=== PATIENT | male | born 1940 | race Caucasian/White ===

== ENCOUNTER 2019-12-02 17:49 | Outpatient (CLI) | payer MEDICARE, SELFPAY ==
--- NOTE | ~2019-12-02 | XR_ITS ---
EXAMINATION: XR chest 2V EXAM DATE: 12/02/2019 18:19 INDICATION: Cough. Hypertension. TECHNIQUE: Frontal and lateral projections of the chest obtained and reviewed. Comparison is made to prior examination from 05/04/2018. FINDINGS: Patient is rotated to the right. The lungs are clear. There are no pleural effusions. The cardiomediastinal silhouette is within normal limits. There is no pneumothorax suspected. The bone s and soft tissues are unremarkable. IMPRESSION: No acute cardiopulmonary findings. Reviewed, dictated and finalized at location A.
[2019-12-02 18:04] LABS: Basophils Absolute Auto 0.05 K/mm3 (0.00-0.10); Basophils Percent Auto 0.7 % (0.0-1.0); Eosinophils Absolute Auto 0.43 K/mm3 (0.02-0.50); Eosinophils Percent Auto 5.9 % (1.0-6.0); Hematocrit 42.6 % (37.0-46.0); Hemoglobin 14.8 g/dL (12.4-15.3); Immature Granulocyte Absolute 0.03 K/mm3 (0.00-0.00); Immature Granulocyte Percent A 0.4 % (0.0-0.0); Lymphocytes Absolute Auto 2.42 K/mm3 (1.10-4.50); Lymphocytes Percent Auto 33.4 % (18.0-42.0); Mean Corpuscular HGB Conc 34.7 g/dL (32.0-36.0); Mean Corpuscular Hemoglobin 31.8 pg (27.0-31.0); Mean Corpuscular Volume 91.6 fL (78.0-102.0); Mean Platelet Volume 9.4 fl (8.7-11.0); Monocytes Absolute Auto 0.87 K/mm3 (0.10-0.90); Neutrophils Absolute Auto 3.4 K/mm3 (1.7-7.2); Neutrophils Percent Auto 47.6 % (50.0-70.0); Platelet Count Result 198 K/mm3 (150-420); Red Blood Count 4.65 M/mm3 (4.70-6.10); Red Cell Distribution Width 12.6 % (11.6-14.4); White Blood Count 7.2 K/mm3 (4.8-10.8)
[2019-12-02 18:28] LABS: BNP 32 pg/mL (0-100)
[2019-12-02 19:00] LABS: Alanine Aminotransferase 24 U/L (16-63); Albumin Level 3.6 g/dL (3.4-5.0); Alkaline Phosphatase 78 U/L (46-116); Anion Gap 16.1 mmol/L (7-16); Aspartate Amino Transferase 19 U/L (15-37); Bilirubin,Total 0.6 mg/dL (0.00-1.00); Blood Urea Nitrogen 21 mg/dL (7-18); Calcium 8.7 mg/dL (8.5-10.1); Carbon Dioxide 24 mmol/L (21-32); Chloride 101 mmol/L (98-108); Estimated Glomerular Filt Rate 46; Free T3 2.55 pg/mL (2.18-3.98); Free T4 Free Thyroxine 1.21 ng/dL (0.76-1.46); Glucose 121 mg/dL (70-99); Osmolality Calculated 288 mOsm/kg (285-295); Potassium 4.1 mmol/L (3.5-5.1); Sodium 137 mmol/L (136-145); Thyroid Stimulating Hormone 2.32 uIU/mL (0.36-3.74); Total Protein 7.1 g/dL (6.4-8.2)
[2019-12-03 10:33] LABS: Add Urine Microscopic? NO; Appearance Urine Clear (Clear); Bilirubin Urine Negative (Negative); Blood Urine Negative (Negative); Color Urine Yellow (Yellow); Glucose Urine UA Negative (Negative); Ketones Urine Negative (Negative); Leukocyte Esterase Ur Negative (Negative); Nitrate Urine Negative (Negative); Protein Urine Negative (Negative); Specific Grav Ur 1.015 (1.010-1.020); pH Urine 6.5 (5.0-8.0)
== END 2019-12-02 17:50 | disposition home or self-care (01) ==
PROVIDERS: PCP Internal Medicine; Visit Provider Internal Medicine
DX: R60.1 Generalized edema (principal); I10 Essential (primary) hypertension; R06.02 Shortness of breath
CPT/HCPCS: 36415; 71046; 80053; 81003; 83880; 84439; 84443; 84481; 85025

== ENCOUNTER 2019-12-03 10:15 | Outpatient (CLI) | payer MEDICARE, SELFPAY ==
--- NOTE | ~2019-12-03 | US_ITS ---
EXAMINATION: US venous doppler [facility] DATE: 12/03/2019 13:10 INDICATION: Anasarca, hypertension TECHNIQUE: Duong scale images without and with compression and Doppler images of the bilateral lower e xtremity veins were obtained. COMPARISON: None FINDINGS: The right common femoral vein, profunda femoral vein, femoral vein, popliteal vein, peroneal trunk, p osterior tibial veins, and greater saphenous vein are patent. The left common femoral vein, profunda femoral vein, femoral vein, popliteal vein, peroneal trunk, po sterior tibial veins, and greater saphenous vein are patent. IMPRESSION: 1. Patent bilateral lower extremity veins. No evidence of deep venous thrombosis. Reviewed, dictated and finalized at location A. IMPRESSION: 1. Patent bilateral lower extremity veins. No evidence of deep venous thrombosi s.
--- NOTE | ~2019-12-03 | US_ITS ---
US abdomen complete EXAMINATION: US Abdomen Complete INDICATION: Anasarca. PROCEDURE: Realtime High Resolution abdomen ultrasound. COMPARISON: No prior studies for comparison FINDINGS: There are gallstones. There is mild gallbladder wall thickening. Common bile duct measures 3.5 mm. Liver echotexture is increased, consistent with fatty infiltration.. Pancreas within normal limits. Pancreatic tail is obscured by bowel gas. Spleen is unremarkeable. Renal echotexture is within norm al limits bilaterally without hydronephrosis, contour deforming mass or renal stone. Right kidney lyndsay sures 10.8 cm. Left kidney measures 9.8 cm. Visualized aspects of the aorta and IVC are within normal limits. Portal vein is patent. No sonograph ic Hannah's sign indicated by the technologist. IMPRESSION: 1: Cholelithiasis with mild gallbladder wall thickening. Consider cholecystitis in the appropriate cl inical setting. 2: Hepatic steatosis. Reviewed, dictated and finalized at location A. IMPRESSION: 1: Cholelithiasis with mild gallbladder wall thickening. Consider cholecystitis in the appropriate clinical setting. 2: Hepatic steatosis.
== END 2019-12-03 10:16 | disposition home or self-care (01) ==
PROVIDERS: PCP Internal Medicine; Visit Provider Internal Medicine
DX: R60.1 Generalized edema (principal); I10 Essential (primary) hypertension
CPT/HCPCS: 76700; 93970

== ENCOUNTER 2020-01-18 10:34 | Outpatient (CLI) | payer MEDICARE, SELFPAY ==
[2020-01-18 10:48] LABS: Basophils Absolute Auto 0.04 K/mm3 (0.00-0.10); Basophils Percent Auto 0.5 % (0.0-1.0); Eosinophils Absolute Auto 0.48 K/mm3 (0.02-0.50); Eosinophils Percent Auto 6.5 % (1.0-6.0); Immature Granulocyte Absolute 0.02 K/mm3 (0.00-0.00); Immature Granulocyte Percent A 0.3 % (0.0-0.0); Lymphocytes Percent Auto 31.4 % (18.0-42.0); Mean Corpuscular HGB Conc 34.9 g/dL (32.0-36.0); Mean Corpuscular Hemoglobin 31.5 pg (27.0-31.0); Mean Corpuscular Volume 90.3 fL (78.0-102.0); Mean Platelet Volume 9.6 fl (8.7-11.0); Monocytes Absolute Auto 0.77 K/mm3 (0.10-0.90); Monocytes Percent Auto 10.5 % (2.0-11.0); Neutrophils Absolute Auto 3.7 K/mm3 (1.7-7.2); Neutrophils Percent Auto 50.8 % (50.0-70.0); Platelet Count Result 228 K/mm3 (150-420); Red Blood Count 4.76 M/mm3 (4.70-6.10); Red Cell Distribution Width 12.7 % (11.6-14.4); White Blood Count 7.3 K/mm3 (4.8-10.8)
[2020-01-18 11:34] LABS: Alanine Aminotransferase 27 U/L (16-63); Albumin Level 3.6 g/dL (3.4-5.0); Alkaline Phosphatase 85 U/L (46-116); Anion Gap 11.2 mmol/L (7-16); Aspartate Amino Transferase 22 U/L (15-37); Blood Urea Nitrogen 16 mg/dL (7-18); Calcium 8.9 mg/dL (8.5-10.1); Carbon Dioxide 26 mmol/L (21-32); Chloride 100 mmol/L (98-108); Estimated Glomerular Filt Rate 55; Glucose 128 mg/dL (70-99); Osmolality Calculated 279 mOsm/kg (285-295); Potassium 4.2 mmol/L (3.5-5.1); Sodium 133 mmol/L (136-145); Total Protein 7.3 g/dL (6.4-8.2)
[2020-01-18 13:28] LABS: Add Urine Microscopic? NO; Appearance Urine Clear (Clear); Bilirubin Urine Negative (Negative); Blood Urine Negative (Negative); Color Urine Yellow (Yellow); Glucose Urine UA Negative (Negative); Ketones Urine Negative (Negative); Leukocyte Esterase Ur Negative (Negative); Nitrate Urine Negative (Negative); Protein Urine Negative (Negative); Urobilinogen Urine 0.2 mg/dL (0.2-1.0)
== END 2020-01-18 10:35 | disposition home or self-care (01) ==
LOC: CHSLAB 10:36
PROVIDERS: PCP Internal Medicine; Visit Provider Internal Medicine
DX: Z79.899 Other long term (current) drug therapy (principal); I10 Essential (primary) hypertension
CPT/HCPCS: 36415; 80053; 81003; 85025

== ENCOUNTER 2021-02-27 15:07 | Outpatient (CLI) | payer MEDICARE, SELFPAY ==
--- NOTE | ~2021-02-27 | US_ITS ---
EXAMINATION: US venous doppler [facility] DATE: 02/27/2021 15:55 INDICATION: Lower limb swelling. TECHNIQUE: Grayscale ultrasound images without and with compression and Doppler ultrasound images of the bilateral lower extremity veins were obtained. COMPARISON: Ultrasound 12/03/2019 FINDINGS: The visualized portions of right common femoral vein, profunda (deep) femoral vein, femoral vein, pop liteal vein, peroneal veins, posterior tibial veins, and greater saphenous vein outflow are patent. The visualized portions of left common femoral vein, profunda femoral vein, femoral vein, popliteal v ein, peroneal veins, posterior tibial veins, and greater saphenous vein outflow are patent. IMPRESSION: 1. No deep venous thrombosis. Reviewed, dictated and finalized at location A.
[2021-02-27 15:36] LABS: Basophils Absolute Auto 0.07 K/mm3 (0.00-0.10); Basophils Percent Auto 0.9 % (0.0-1.0); Eosinophils Absolute Auto 0.43 K/mm3 (0.02-0.50); Eosinophils Percent Auto 5.3 % (1.0-6.0); Hemoglobin 15.2 g/dL (12.4-15.3); Immature Granulocyte Absolute 0.02 K/mm3 (0.00-0.00); Immature Granulocyte Percent A 0.2 % (0.0-0.0); Lymphocytes Percent Auto 39.1 % (18.0-42.0); Mean Corpuscular HGB Conc 34.5 g/dL (32.0-36.0); Mean Corpuscular Volume 92.6 fL (78.0-102.0); Mean Platelet Volume 9.3 fl (8.7-11.0); Monocytes Percent Auto 12.2 % (2.0-11.0); Neutrophils Absolute Auto 3.5 K/mm3 (1.7-7.2); Neutrophils Percent Auto 42.3 % (50.0-70.0); Platelet Count Result 257 K/mm3 (150-420); Red Blood Count 4.75 M/mm3 (4.70-6.10); Red Cell Distribution Width 12.7 % (11.6-14.4); White Blood Count 8.2 K/mm3 (4.8-10.8)
[2021-02-27 16:52] LABS: Alanine Aminotransferase 29 U/L (16-63); Albumin Level 3.9 g/dL (3.4-5.0); Alkaline Phosphatase 92 U/L (46-116); Anion Gap 11 mmol/L (8-16); Aspartate Amino Transferase 17 U/L (15-37); Bilirubin,Total 0.7 mg/dL (0.00-1.00); Blood Urea Nitrogen 16 mg/dL (7-18); CRP 0.6 mg/dL (0.0-0.9); Calcium 8.6 mg/dL (8.5-10.1); Carbon Dioxide 25 mmol/L (21-32); Chloride 101 mmol/L (98-108); Estimated Glomerular Filt Rate 47; Glucose 119 mg/dL (70-99); NT Pro B Type Natriuretic Pept 127 pg/mL (0-450); Osmolality Calculated 286 mOsm/kg (285-295); Potassium 4.4 mmol/L (3.5-5.1); Sodium 137 mmol/L (136-145); Total Protein 7.4 g/dL (6.4-8.2); Uric Acid 8.9 mg/dL (3.5-7.2)
== END 2021-02-27 15:08 | disposition home or self-care (01) ==
LOC: CHSLAB 15:10
PROVIDERS: PCP Internal Medicine; Visit Provider Nurse Practitioner Family
DX: M79.89 Other specified soft tissue disorders (principal); I50.9 Heart failure, unspecified; M79.672 Pain in left foot; M79.671 Pain in right foot
CPT/HCPCS: 36415; 80053; 83880; 84550; 85025; 86140; 93970

== ENCOUNTER 2021-09-08 12:23 | Outpatient (CLI) | payer MEDICARE, SELFPAY ==
[2021-09-08 12:45] LABS: Basophils Absolute Auto 0.07 K/mm3 (0.00-0.10); Basophils Percent Auto 0.8 % (0.0-1.0); Eosinophils Absolute Auto 0.37 K/mm3 (0.02-0.50); Eosinophils Percent Auto 4.4 % (1.0-6.0); Hematocrit 47.9 % (37.0-46.0); Hemoglobin 16.6 g/dL (12.4-15.3); Immature Granulocyte Absolute 0.03 K/mm3 (0.00-0.00); Immature Granulocyte Percent A 0.4 % (0.0-0.0); Lymphocytes Absolute Auto 2.92 K/mm3 (1.10-4.50); Lymphocytes Percent Auto 34.7 % (18.0-42.0); Mean Corpuscular HGB Conc 34.7 g/dL (32.0-36.0); Mean Corpuscular Hemoglobin 31.9 pg (27.0-31.0); Mean Corpuscular Volume 92.1 fL (78.0-102.0); Mean Platelet Volume 10.2 fl (8.7-11.0); Monocytes Absolute Auto 0.87 K/mm3 (0.10-0.90); Monocytes Percent Auto 10.3 % (2.0-11.0); Neutrophils Absolute Auto 4.2 K/mm3 (1.7-7.2); Neutrophils Percent Auto 49.4 % (50.0-70.0); Platelet Count Result 241 K/mm3 (150-420); Red Cell Distribution Width 12.3 % (11.6-14.4); White Blood Count 8.4 K/mm3 (4.8-10.8)
[2021-09-08 13:35] LABS: Alanine Aminotransferase 22 U/L (16-63); Albumin Level 3.8 g/dL (3.4-5.0); Alkaline Phosphatase 83 U/L (46-116); Anion Gap 13 mmol/L (8-16); Aspartate Amino Transferase 17 U/L (15-37); Bilirubin,Total 1.2 mg/dL (0.00-1.00); Blood Urea Nitrogen 19 mg/dL (7-18); Carbon Dioxide 24 mmol/L (21-32); Chloride 100 mmol/L (98-108); Estimated Glomerular Filt Rate 48; Glucose 120 mg/dL (70-99); Osmolality Calculated 287 mOsm/kg (285-295); Potassium 4.7 mmol/L (3.5-5.1); Sodium 137 mmol/L (136-145); Total Protein 7.8 g/dL (6.4-8.2); Uric Acid 9.3 mg/dL (3.5-7.2)
== END 2021-09-08 12:24 | disposition home or self-care (01) ==
LOC: CHSLAB 12:25
PROVIDERS: PCP Internal Medicine; Visit Provider Internal Medicine
DX: M10.9 Gout, unspecified (principal); I12.9 Hypertensive chronic kidney disease with stage 1 through stage 4 chronic kidney disease, or unspecified chronic kidney disease; N18.30 Chronic kidney disease, stage 3 unspecified
CPT/HCPCS: 36415; 80053; 84550; 85025

== ENCOUNTER 2021-11-08 11:59 | Outpatient (CLI) | payer MEDICARE, SELFPAY ==
--- NOTE | ~2021-11-08 | US_ITS ---
EXAMINATION: US venous doppler [facility] DATE: 11/08/2021 12:40 INDICATION: Lower limb pain and swelling TECHNIQUE: Grayscale ultrasound images without and with compression and Doppler ultrasound images of the bilateral lower extremity veins were obtained. COMPARISON: None. FINDINGS: The visualized portions of right common femoral vein, profunda (deep) femoral vein, femoral vein, pop liteal vein, posterior tibial veins, peroneal veins, gastrocnemius vein and greater saphenous vein ou tflow are patent. The visualized portions of left common femoral vein, profunda femoral vein, femoral vein, popliteal v ein, posterior tibial veins, peroneal veins, gastrocnemius vein and greater saphenous vein outflow ar e patent. IMPRESSION: 1. No deep venous thrombosis in either lower limb. Reviewed, dictated and finalized at location A.
[2021-11-08 12:43] LABS: Basophils Absolute Auto 0.05 K/mm3 (0.00-0.10); Basophils Percent Auto 0.6 % (0.0-1.0); Eosinophils Percent Auto 4.8 % (1.0-6.0); Hematocrit 47.3 % (37.0-46.0); Hemoglobin 16.2 g/dL (12.4-15.3); Immature Granulocyte Absolute 0.03 K/mm3 (0.00-0.00); Immature Granulocyte Percent A 0.4 % (0.0-0.0); Lymphocytes Percent Auto 28.8 % (18.0-42.0); Mean Corpuscular HGB Conc 34.2 g/dL (32.0-36.0); Mean Corpuscular Hemoglobin 31.6 pg (27.0-31.0); Mean Corpuscular Volume 92.4 fL (78.0-102.0); Monocytes Absolute Auto 0.88 K/mm3 (0.10-0.90); Monocytes Percent Auto 10.6 % (2.0-11.0); Neutrophils Absolute Auto 4.6 K/mm3 (1.7-7.2); Neutrophils Percent Auto 54.8 % (50.0-70.0); Platelet Count Result 244 K/mm3 (150-420); Red Blood Count 5.12 M/mm3 (4.70-6.10); White Blood Count 8.3 K/mm3 (4.8-10.8)
[2021-11-08 12:56] LABS: Alanine Aminotransferase 22 U/L (16-63); Albumin Level 3.5 g/dL (3.4-5.0); Alkaline Phosphatase 81 U/L (46-116); Anion Gap 10 mmol/L (8-16); Aspartate Amino Transferase 15 U/L (15-37); Bilirubin,Total 1.6 mg/dL (0.00-1.00); Blood Urea Nitrogen 19 mg/dL (7-18); CRP 1.6 mg/dL (0.0-0.9); Carbon Dioxide 24 mmol/L (21-32); Chloride 99 mmol/L (98-108); Estimated Glomerular Filt Rate 48; Glucose 146 mg/dL (70-99); Osmolality Calculated 281 mOsm/kg (285-295); Potassium 3.9 mmol/L (3.5-5.1); Sodium 133 mmol/L (136-145); Total Protein 7.5 g/dL (6.4-8.2)
[2021-11-08 12:57] LABS: D Dimer 0.62 mg/L (0.19-0.50)
--- NOTE | 2021-11-08 13:15 | ECG_ITS ---
Measurements Intervals [place] Rate: 37 P: NM: 0 QRS: -38 QRSD: 138 T: 47 QT: 497 QTc: 391 Interpretive Statements SINUS RHYTHM WITH COMPLETE HEART BLOCK SLOW JUNCTIONAL ESCAPE RHYTHM RIGHT BUNDLE BRANCH BLOCK ABNORMAL ECG Electronically Signed On 11-08-2021 13:56:26 CDT by Fletcher Colon D.O.
== END 2021-11-08 12:00 | disposition home or self-care (01) ==
LOC: CHSLAB 12:04
PROVIDERS: PCP Internal Medicine; Visit Provider Internal Medicine
DX: M79.605 Pain in left leg (principal); M79.89 Other specified soft tissue disorders; R00.1 Bradycardia, unspecified
CPT/HCPCS: 36415; 80053; 85025; 85380; 86140; 93005; 93970

== ENCOUNTER 2021-11-08 13:42 | Emergency (ER) | payer MEDICARE, SELFPAY ==
--- NOTE | ~2021-11-08 | XR_ITS ---
EXAMINATION: XR chest 1V portable Exam Date/Time: 11/08/2021 14:43 CDT CLINICAL HISTORY: shortness of breath Comparison: 12/02/19. RESULT: Lines, tubes, and devices: None. Lungs and pleura: Clear. Cardiomediastinal silhouette: Stable cardiomediastinal silhouette. Other: No acute osseous or upper abdominal finding. IMPRESSION: No acute cardiopulmonary process Reviewed, dictated and finalized at location K.
--- NOTE | 2021-11-08 14:00 | ED.ARRPALP ---
HPI - Arrhythmia/Palpitations General Chief Complaint: Chest Pain Stated Complaint: Sent over by Doctor Time Seen by Provider: 11/08/21 14:00 Source: patient Mode of arrival: wheelchair History of Present Illness HPI narrative: 81-year-old a history of spinal stenosis, CKD, chronic leg swelling, negative stress test many years ago, BPH presented to his primary care physician for -- bilateral leg swelling left greater than right. -- On evaluation of his vitals he was noted to have bradycardia with heart rate of 37. He was noted to be in complete heart block. He denied any chest pain or shortness of breath. No syncopal spells. he Is transferred to the ER for further management MD complaint: rapid heart beat ( no cardiac symptoms.) Related Data Home Medications Medication Instructions Recorded Confirmed finasteride 5 mg PO DAILY 11/08/21 11/08/21 furosemide 20 mg PO BID 11/08/21 11/08/21 memantine 10 mg PO BID 11/08/21 11/08/21 memantine [Namenda] 10 mg PO BID 11/08/21 11/08/21 spironolactone 50 mg PO DAILY 11/08/21 11/08/21 Allergies Allergy/AdvReac Type Severity Reaction Status Date / Time No Known Allergies Allergy Verified 11/08/21 14:06 Review of Systems Review of Systems: All systems reviewed & are unremarkable except as noted in HPI and below Constitutional: Constitutional: Reports as per HPI and Reports no additional constitutional complaints Eyes: Eyes: Reports as per HPI and Reports no additional eye complaints ENT: Reports system reviewed and no additional complaints, except as documented and Reports as per HPI Cardiovascular: Cardiovascular: Reports as per HPI and Reports no additional cardiovascular complaints Respiratory: Respiratory: Reports as per HPI and Reports no additional respiratory complaints Gastrointestinal: Gastrointestinal: Reports as per HPI and Reports no additional gastrointestinal complaints Genitourinary: Genitourinary: Reports no additional male genitourinary complaints and Reports as per HPI Musculoskeletal: Musculoskeletal: Reports no additional musculoskeletal complaints, Reports as per HPI and Reports back pain Integumentary/Breasts: Skin/Breast: Reports system reviewed and no additional complaints, except as docu Comments: Chronic venous stasis changes both legs Neurologic: Reports system reviewed and no additional complaints, except as documented and Reports as per HPI Psychiatric: Psychiatric: Reports no additional psychiatric complaints and Reports as per HPI Endocrine: Endocrine: Reports no additional endocrine complaints and Reports as per HPI Hematologic/Lymphatic: Hematologic/Lymphatic: Reports no additional hematologic/lymphatic complaints and Reports as per HPI Allergic/Immunologic: Allergic/Immunologic: Reports no additional allergic/immunologic complaints and Reports as per HPI [facility] Past Medical History Medical History (Updated 11/08/21 @ 16:24 by Vidal Caputo MD) BPH (benign prostatic hyperplasia) Leg swelling Spinal stenosis Exam Const: General: no acute distress and alert HENMT: Head: normal to inspection Mouth: Yes moist mucous membranes Eyes: Conjunctivae: conjunctivae normal Pupils: Equal, round and reactive pupils present EOM: EOMs intact bilaterally Direct Ophthalmoscopy: photophobia Neck: Neck: normal visual inspection, no lymphadenopathy and no meningeal signs Chest: Chest palpation & inspection: normal inspection of the chest Resp: Auscultation: clear to auscultation bilaterally Cardio: Rate: bradycardic Other: bradycardia with a heart rate of 37. GI: GI Palp: Yes Soft to palpation : Male General Exam: Yes normal external exam Testes: Testes normal Back/Spine/Pelvis: Back: no CVA tenderness Skin: Other: Chronic venous stasis changes both lower extremities. Neuro: General: patient oriented x3, moves all extremities, no meningeal signs, no focal motor deficits and CN's II-XI intact bilaterally Ex
[2021-11-08 14:03] VITALS: BP 146/83; PULSE 38; RESP 12; O2SAT 99
[2021-11-08] MEDS: ATROPINE SULFATE 1 MG/ML VIAL 0.4 MG IV PUSH (14:53)
[2021-11-08 15:24] LABS: Partial Thromboplastin Time 32.2 SEC (23.90-30.70); Prothrombin Time 10.9 Seconds (9.50-12.10)
[2021-11-08 15:33] LABS: Lactic Acid Reflex 1.4 mmol/L (0.4-2.0)
[2021-11-08 15:41] LABS: Lipase 77 U/L (73-393); Magnesium 2.3 mg/dL (1.8-2.4)
[2021-11-08 15:42] LABS: NT Pro B Type Natriuretic Pept 1221 pg/mL (0-450); Troponin I 12.1 ng/L (0.00-60.4); Uric Acid 9.3 mg/dL (3.5-7.2)
[2021-11-08 16:28] VITALS: BP 153/47; PULSE 37
[2021-11-08] MEDS: DOPamine 400 MG/D5W 250 ML 400 MG/250 ML BAG 9.32 MG IV CONT (16:28)
[2021-11-08 17:19] VITALS: PULSE 38; O2SAT 97
--- NOTE | 2021-11-08 17:33 | PC.NURSE ---
report called to michelle dill to krystian fregoso
[2021-11-08 18:11] VITALS: BP 147/42; PULSE 40; RESP 16; TEMP 36.4; O2SAT 94
--- NOTE | 2021-11-08 18:14 | PC.NURSE ---
patient is discharged for transfer to [facility]. patient's iv remains intact with dopamine infusing at 2.5 mcg/kg/min or 9.3ml/hr
== END 2021-11-08 18:16 | disposition short-term general hospital (02) ==
PROVIDERS: Emergency Provider Internal Medicine Critical Care Medicine; PCP Internal Medicine
DX: I50.9 Heart failure, unspecified (principal); M48.00 Spinal stenosis, site unspecified; N18.9 Chronic kidney disease, unspecified
CPT/HCPCS: 36415; 71045; 80053; 83605; 83690; 83735; 83880; 84443; 84484; 84550; 85025; 85380; 85610; 85730; 86140; 93005; 93970; 96365; 96366; 96375; 99285; J0461; J1265

== ENCOUNTER 2021-11-20 09:51 | Outpatient (RCR) | payer MEDICARE, SELFPAY ==
--- NOTE | 2021-11-20 10:45 | PTOPEVAL ---
Thank you for referring Damion Soni to [facility].? The patient is scheduled to be seen for therapy? __3__x/week for 12 visits. Please review, sign, date and return this plan of care RODOLFO. I agree with and certify that the following plan of care is medically necessary. Referring Physician Date Admitting Provider: Attending Provider: Bryant Jain MD Referring Provider: *PT Outpatient Evaluation Start: 11/20/21 10:11 Freq: Status: Active Protocol: Document 11/20/21 10:10 MARILYN (Rec: 11/20/21 10:45 MARILYN [id number]) Therapy Assessment Status Assessment Status Assessment Status Evaluation Evaluation Information Problem Diagnosis spinal stenosis, gait disorder Onset 11/17/21 Subjective Information Pt. reports that he has been Query Text:As Reported By Patient/ developing back pain over the Family past couple years. He describes pain across the low back and worsens with standing for seveal minutes. He reports that sitting in a recliner chair is when his back feels best. He does currently use a cane to walk. He does not recall any recent falls. He states that he would like to be able to stand longer and decrease his pain. Prior Level of Function Comments Additional Prior Level of Function Pt. has been using a cane for Comments several months. His is present and states that he does have dementia. He did have a recent pacemaker implant as well. Pt. reports that he is fairly sedentary and spends most of the day sitting and reading. Pain Assessment Timing of Pain Assessment Timing of Pain Assessment Pre-Treatment Pain Scale Pain Scale Used Numeric (1 - 10) Self Report Pain Assessment Lower Back Reported Pain Level 4 Pain Description Aching Lowest Pain Intensity 4 Greatest Pain Intensity 5 Pain Aggravating Factors Exercise/Activity,Walking, Weight Bearing/Standing Pain Score Pain Score 4: Self Report Interventions Used Interventions Used By Clinicians Exercise Cervical and Lumbar ROM Lumbar ROM Lumbar Flexion Active Knee Query Text:Hands to: Lumbar Extension (0-40) 0 Q
== END 2021-12-13 16:05 | disposition home or self-care (01) ==
LOC: CHSPT 09:51
PROVIDERS: PCP Internal Medicine; Visit Provider Internal Medicine
DX: M48.061 Spinal stenosis, lumbar region without neurogenic claudication (principal); M54.10 Radiculopathy, site unspecified; R26.9 Unspecified abnormalities of gait and mobility
CPT/HCPCS: 97110; 97112; 97161; 97530

== ENCOUNTER 2022-01-06 11:23 | Outpatient (CLI) | payer MEDICARE, SELFPAY ==
[2022-01-06 11:57] LABS: Basophils Absolute Auto 0.07 K/mm3 (0.00-0.10); Basophils Percent Auto 0.9 % (0.0-1.0); Eosinophils Absolute Auto 0.47 K/mm3 (0.02-0.50); Eosinophils Percent Auto 5.8 % (1.0-6.0); Hematocrit 43.5 % (37.0-46.0); Hemoglobin 15.1 g/dL (12.4-15.3); Immature Granulocyte Absolute 0.02 K/mm3 (0.00-0.00); Immature Granulocyte Percent A 0.2 % (0.0-0.0); Lymphocytes Absolute Auto 2.96 K/mm3 (1.10-4.50); Lymphocytes Percent Auto 36.4 % (18.0-42.0); Mean Corpuscular HGB Conc 34.7 g/dL (32.0-36.0); Mean Corpuscular Hemoglobin 31.9 pg (27.0-31.0); Mean Platelet Volume 9.9 fl (8.7-11.0); Monocytes Absolute Auto 0.73 K/mm3 (0.10-0.90); Neutrophils Absolute Auto 3.9 K/mm3 (1.7-7.2); Neutrophils Percent Auto 47.7 % (50.0-70.0); Platelet Count Result 252 K/mm3 (150-420); Red Blood Count 4.73 M/mm3 (4.70-6.10); Red Cell Distribution Width 12.3 % (11.6-14.4); White Blood Count 8.1 K/mm3 (4.8-10.8)
[2022-01-06 12:21] LABS: Albumin Level 3.6 g/dL (3.4-5.0); Anion Gap 7 mmol/L (8-16); Blood Urea Nitrogen 15 mg/dL (7-18); Calcium 8.7 mg/dL (8.5-10.1); Carbon Dioxide 25 mmol/L (21-32); Chloride 103 mmol/L (98-108); Estimated Glomerular Filt Rate 51; Glucose 157 mg/dL (70-99); Osmolality Calculated 283 mOsm/kg (285-295); Phosphorus 3.4 mg/dL (2.6-4.7); Potassium 4.2 mmol/L (3.5-5.1); Sodium 135 mmol/L (136-145); Thyroid Stimulating Hormone 2.49 uIU/mL (0.36-3.74)
[2022-01-06 12:58] LABS: Erythrocyte Sedimentation Rate 19 mm/hr (0-20)
[2022-01-06 14:01] LABS: Add Urine Microscopic? NO; Appearance Urine Clear (Clear); Bilirubin Urine Negative (Negative); Blood Urine Negative (Negative); Color Urine Light Yellow (Yellow); Glucose Urine UA Negative (Negative); Ketones Urine Negative (Negative); Leukocyte Esterase Ur Negative LEU/UL (Negative); Nitrate Urine Negative (Negative); Protein Urine Negative (Negative); Urobilinogen Urine 0.2 mg/dL (0.2-1.0); pH Urine 6.5 (5.0-8.0)
[2022-01-06 14:05] LABS: Creatinine Urine < 13.00 mg/dL (40-278); Total Protein Urine Random < 6.0 mg/dL (0.0-11.9)
[2022-01-06 14:08] LABS: Total Volume 24 Hour Urine 1600 ml; Urea Nitrogen 24 Hour Urine 7.3 g/Day (7-20)
[2022-01-10 08:45] LABS: Parathyroid Intact 87 pg/mL (14-64)
[2022-01-10 22:18] LABS: Complement C3 133 mg/dL (82-185)
[2022-01-11 05:19] LABS: Kappa\\Lambda Light Chains 1.79 (0.26-1.65); Lambda Light Chain 27.5 mg/L (5.7-26.3)
[2022-01-12 03:51] LABS: Albumin 68 %; Measured Kappa Chains <1.00 mg/dL (<2.00); Measured Lambda Chains <1.00 mg/dL (<2.00); Pro/Creat Ratio 166 mg/g creat (<=114)
[2022-01-12 13:38] LABS: Complement Total CH50 >60 U/mL (31-60)
[2022-01-20 06:19] LABS: Protein,total, 24 Hr Ur 192 (H) mg/24h
== END 2022-01-06 11:24 | disposition home or self-care (01) ==
LOC: CHSLAB 11:26
PROVIDERS: PCP Internal Medicine; Visit Provider Internal Medicine Nephrology
DX: N18.31 Chronic kidney disease, stage 3a (principal); E87.1 Hypo-osmolality and hyponatremia
CPT/HCPCS: 36415; 80069; 81003; 81050; 82533; 82570; 83883; 83970; 84156; 84443; 84540; 85025; 85652; 86038; 86160; 86162; 86334; 86335

== ENCOUNTER 2022-06-04 11:59 | Outpatient (CLI) | payer MEDICARE, SELFPAY ==
[2022-06-04 14:25] LABS: Albumin Level 3.6 g/dL (3.4-5.0); Anion Gap 15 mmol/L (8-16); Blood Urea Nitrogen 19 mg/dL (7-18); Calcium 8.6 mg/dL (8.5-10.1); Carbon Dioxide 22 mmol/L (21-32); Chloride 102 mmol/L (98-108); Estimated Glomerular Filt Rate 47; Glucose 200 mg/dL (70-99); Osmolality Calculated 296 mOsm/kg (285-295); Phosphorus 3.5 mg/dL (2.6-4.7); Potassium 4.1 mmol/L (3.5-5.1); Sodium 139 mmol/L (136-145)
[2022-06-04 14:42] LABS: Creatinine Urine 62.39 mg/dL (40-278); Total Protein Urine Random 12.3 mg/dL (0.0-11.9)
== END 2022-06-04 12:00 | disposition home or self-care (01) ==
LOC: CHSLAB 12:01
PROVIDERS: PCP Internal Medicine; Visit Provider Internal Medicine Nephrology
DX: N18.31 Chronic kidney disease, stage 3a (principal)
CPT/HCPCS: 36415; 80069; 82570; 84156

== ENCOUNTER 2022-08-06 13:54 | Outpatient (RCR) | payer MEDICARE, SELFPAY ==
--- NOTE | 2022-08-06 15:05 | PTOPEVAL1 ---
Assessment and note entered by Grecia Sanchez DPT Evaluation Information Assessment Status Evaluation Reported Pain Level Pain Score 0: Self Report Plan of Care Interventions Gait Training,Hot Pack/Cold Pack,Neuro Re- education,Patient/Caregiver Educati,Therapeutic Activities,Therapeutic Exercise PT Services Indicated Yes These treatments will address the objective and functional deficits as defined above. The patient will be advanced safely and appropriately in order for the patient to progress towards his/her prior level of function. Additional exercises will be introduced and as well as a comprehensive home exercise program upon discharge, if needed, ?to ensure carryover of functional gains achieved in the clinic. This treatment plan has been reviewed and agreement upon by the patient.
--- NOTE | 2022-08-06 15:11 | PTOPEVAL1 ---
Assessment and note entered by Grecia Sanchez DPT Evaluation Information Assessment Status Evaluation Diagnosis spinal stenosis, gait disorder, functional decline Onset 07/31/22 Subjective Information Patient is a poor historian. He reports his balance is okay if he has his can with him. Patient's reports that he does have his cane all the time but he fell in May in the yard. She reports he does have back pain but he does not like to let people know he has pain. She would like him to work on balance and walking. Reported Pain Level Pain Score 0: Self Report Assessment PT Clinical Summary Patient presents to PT with decreased balance and back pain pain. He demonstrates decreaseed hip strength, impaired gait mechanics and posture as well as decreased balance putting him at increased fall risk within the home and the community. He would benefit from skilled PT to address impairments and return to PLOF. Plan of Care Interventions Gait Training,Hot Pack/Cold Pack,Neuro Re- education,Patient/Caregiver Educati,Therapeutic Activities,Therapeutic Exercise PT Services Indicated Yes Treatment Frequency and 2x weekly for 10 visits Duration These treatments will address the objective and functional deficits as defined above. The patient will be advanced safely and appropriately in order for the patient to progress towards his/her prior level of function. Additional exercises will be introduced and as well as a comprehensive home exercise program upon discharge, if needed, ?to ensure carryover of functional gains achieved in the clinic. This treatment plan has been reviewed and agreement upon by the patient.
--- NOTE | 2022-09-07 15:14 | PTOPREEVAL ---
Assessment and note entered by Grecia Sanchez DPT Evaluation Information Assessment Status Re-evaluation Diagnosis spinal stenosis, gait disorder, functional decline Onset 07/31/22 Subjective Information Patient reports he does not recall any back pain. He reports he thinks his balance is improved but thinks he needs better endurance. He also reports he has not fallen since start of care. Reported Pain Level Pain Score 0: Self Report Assessment PT Clinical Summary Patient has been seen for 10 visits from 08/06/22-. Patient is making good progress towards goals at this time. He met goal for pain and is improving towards balance and strength goal. New goal will be set today for 6 minute walk test to improve endurance for safe ambulation in his yard and in the community. Patient would benefit from continued skilled PT to address impairments and return to PLOF. Plan of Care Interventions Gait Training,Hot Pack/Cold Pack,Neuro Re- education,Patient/Caregiver Educati,Therapeutic Activities,Therapeutic Exercise PT Services Indicated Yes Treatment Frequency and Continue 2x/weekly for 8 visits to improve balance Duration and endurance These treatments will address the objective and functional deficits as defined above. The patient will be advanced safely and appropriately in order for the patient to progress towards his/her prior level of function. Additional exercises will be introduced and as well as a comprehensive home exercise program upon discharge, if needed, ?to ensure carryover of functional gains achieved in the clinic. This treatment plan has been reviewed and agreement upon by the patient.
--- NOTE | 2022-10-05 15:48 | PTOPDC ---
Assessment and note entered by Grecia Sanchez DPT Evaluation Information Assessment Status Re-evaluation Diagnosis spinal stenosis, gait disorder, functional decline Onset 07/31/22 Subjective Information Patient reports he has not had any falls. He reports he feels his balance is improved with greater endurance. Reported Pain Level Pain Score 0: Self Report Assessment PT Clinical Summary Patient was seen for 18 visits of skilled PT. He made great progres with improve balance and endurance. He reports no falls since start of care . He is independent with HEP and appropriate for DC at this time. Plan of Care PT Services Indicated No
== END 2022-10-05 16:04 | disposition home or self-care (01) ==
LOC: CHSPT 13:54
PROVIDERS: PCP Internal Medicine; Visit Provider Internal Medicine
DX: M48.00 Spinal stenosis, site unspecified (principal); R26.9 Unspecified abnormalities of gait and mobility
CPT/HCPCS: 97110; 97112; 97161; 97750

== ENCOUNTER 2022-11-27 13:41 | Outpatient (RCR) | payer MEDICARE, SELFPAY ==
--- NOTE | 2022-11-27 15:09 | OPREHPOC ---
Outpatient Therapy Plan of Care This is a Multidisciplinary Plan of Care that may contain components documented by all disciplines (PT, OT, and ST.) PT Problem 1 PT Problem #1 Knowledge Deficit PT Goal 1 Goal Patient to demonstrate independence with HEP Target Visit 10 PT Problem 2 PT Problem #2 Pain PT Goal 1 Goal Patient to report ability to sit in his recliner for >1 hour to read with no increase in pain Target Visit 10 PT Problem 3 PT Problem #3 Impaired Flexibility PT Goal 1 Goal Patient to demonstrate mild restriction at R piriformis to decrease pain with prolonged sitting Target Visit 10 PT Goal 2 Goal Patient to demonstrate 20 deg of hamstring length with SLR test to improve ability to tolerate prolonged positioning with no increase in pain Target Visit 10 PT Problem 4 PT Problem #4 Impaired Functional Mobil PT Goal 1 Goal 1. Patient to demontrate 5/5 strength of B LE in order to ambulate houshold and community distances with no increase in pain 2. Patient to improve Tinetti balance score by 5 points to decrease fall risk 3. Patient to ambulate 800' during 6 min walk test with no rest breaks to complete house hold and community ambulation with decreased risk of falls. Target Visit 10
--- NOTE | 2022-11-27 15:09 | PTOPEVAL1 ---
Assessment and note entered by Grecia Sanchez DPT Evaluation Information Assessment Status Evaluation Diagnosis impaired balance, back pain Onset 11/21/22 Subjective Information Patient is a poor historian. Patient has been seen previously in PT for decrease balance. Today he reports lower back pain and R hip pain. He reports pain is most presents when he is sitting but also has pain down the leg when walking. Reported Pain Level Pain Score 2: Self Report Assessment PT Clinical Summary Patient is a 82 year old male who presents to PT with R hip pain and decreased balance. He demosntrates decreased B LE strength, decreased R LE flexibility, impaired gait mechanics and impaired balance score testing indicating high fall risk. He would benefit from skilled PT to address impairments and decrease fall risk in order to return to [facility]. Plan of Care Interventions Gait Training,Hot Pack/Cold Pack,Manual Therapy, Neuro Re-education,Patient/Caregiver Educati, Therapeutic Activities,Therapeutic Exercise,Self- Care/Home Management PT Services Indicated Yes Treatment Frequency and 2x weekly for 10 visits Duration These treatments will address the objective and functional deficits as defined above. The patient will be advanced safely and appropriately in order for the patient to progress towards his/her prior level of function. Additional exercises will be introduced and as well as a comprehensive home exercise program upon discharge, if needed, ?to ensure carryover of functional gains achieved in the clinic. This treatment plan has been reviewed and agreement upon by the patient.
--- NOTE | 2023-01-01 16:59 | OPREHPOC ---
Outpatient Therapy Plan of Care This is a Multidisciplinary Plan of Care that may contain components documented by all disciplines (PT, OT, and ST.) PT Problem 1 PT Problem #1 Knowledge Deficit PT Goal 1 Goal Patient to demonstrate independence with HEP Target Visit 10 Progress Met PT Problem 2 PT Problem #2 Pain PT Goal 1 Goal Patient to report ability to sit in his recliner for >1 hour to read with no increase in pain Target Visit 10 Progress Met PT Problem 3 PT Problem #3 Impaired Flexibility PT Goal 1 Goal Patient to demonstrate mild restriction at R piriformis to decrease pain with prolonged sitting Target Visit 10 Progress Met PT Goal 2 Goal Patient to demonstrate 20 deg of hamstring length with SLR test to improve ability to tolerate prolonged positioning with no increase in pain Target Visit 10 Progress Not Met PT Problem 4 PT Problem #4 Impaired Functional Mobil PT Goal 1 Goal 1. Patient to demontrate 5/5 strength of B LE in order to ambulate houshold and community distances with no increase in pain 2. Patient to improve Tinetti balance score by 5 points to decrease fall risk 3. Patient to ambulate 800' during 6 min walk test with no rest breaks to complete house hold and community ambulation with decreased risk of falls. Target Visit 10 Progress Partially Met
--- NOTE | 2023-01-01 16:59 | PTOPDC ---
Assessment and note entered by Grecia Sanchez DPT Evaluation Information Assessment Status Evaluation Diagnosis impaired balance, back pain Onset 11/21/22 Subjective Information Patient reports he hs not noticed any hip pain recently. He and his denies falls since start of care. Reported Pain Level Pain Score 0: Self Report Assessment PT Clinical Summary Patient has been seen for 10 visits with great improvement. Patient reports no hip pain, improved balance and decreased fall risk. He reports that he has been able to return to all previous activities with no increase in pain. Patient is appropriate for DC at this time. Plan of Care PT Services Indicated No
== END 2023-01-01 17:06 | disposition home or self-care (01) ==
LOC: CHSPT 13:41
PROVIDERS: Visit Provider Nurse Practitioner Family
DX: M48.061 Spinal stenosis, lumbar region without neurogenic claudication (principal)
CPT/HCPCS: 97110; 97112; 97150; 97161; 97530; J2785

== ENCOUNTER 2022-12-27 08:39 | Outpatient (CLI) | payer MEDICARE, SELFPAY | END 2022-12-27 08:40 | disposition home or self-care (01) | PROVIDERS: PCP Internal Medicine; Visit Provider Internal Medicine Nephrology | DX: E87.1 Hypo-osmolality and hyponatremia (principal) | CPT/HCPCS: 36415; 82533; 96372; J0834 ==

== ENCOUNTER 2023-06-15 10:06 | Outpatient (CLI) | payer MEDICARE, SELFPAY ==
[2023-06-15 10:22] LABS: Hematocrit 43.4 % (37.0-46.0); Hemoglobin 14.9 g/dL (12.4-15.3); Mean Corpuscular HGB Conc 34.3 g/dL (32.0-36.0); Mean Corpuscular Hemoglobin 31.6 pg (27.0-31.0); Mean Corpuscular Volume 92.1 fL (78.0-102.0); Mean Platelet Volume 9.7 fl (8.7-11.0); Platelet Count Result 257 K/mm3 (150-420); Red Blood Count 4.71 M/mm3 (4.70-6.10); White Blood Count 8.2 K/mm3 (4.8-10.8)
[2023-06-15 10:59] LABS: Albumin Level 3.9 g/dL (3.4-5.0); Anion Gap 9 mmol/L (8-16); Blood Urea Nitrogen 23 mg/dL (7-18); Calcium 8.8 mg/dL (8.5-10.1); Carbon Dioxide 27 mmol/L (21-32); Chloride 98 mmol/L (98-108); Estimated Glomerular Filt Rate 45; Glucose 168 mg/dL (70-99); Osmolality Calculated 285 mOsm/kg (285-295); Phosphorus 3.6 mg/dL (2.6-4.7); Potassium 4.1 mmol/L (3.5-5.1); Sodium 134 mmol/L (136-145)
[2023-06-15 12:37] LABS: Creatinine Urine 96.25 mg/dL (40-278); Total Protein Urine Random 12.8 mg/dL (0.0-11.9); Ur Ttl Prot Creatinine Ratio 0.13 mg/mg (0-0.20)
[2023-06-19 20:34] LABS: Parathyroid Intact 99 pg/mL (14-64)
[2023-06-21 12:27] LABS: Vitamin D 25 Hydroxy 26 ng/mL (30-100)
== END 2023-06-15 10:07 | disposition home or self-care (01) ==
LOC: CHSLAB 10:07
PROVIDERS: PCP Internal Medicine Nephrology; Visit Provider Internal Medicine Nephrology
DX: E21.1 Secondary hyperparathyroidism, not elsewhere classified (principal); N18.31 Chronic kidney disease, stage 3a
CPT/HCPCS: 36415; 80069; 82306; 82570; 83970; 84156; 85027

== ENCOUNTER 2023-10-13 14:26 | Emergency (ER) | payer MEDICARE, SELFPAY ==
--- NOTE | ~2023-10-13 | XR_ITS ---
EXAMINATION: XR chest 1V portable Exam Date/Time: 10/13/2023 15:42 CDT HISTORY: weakness Comparison: 11/08/2021. RESULT: Lines, tubes, and devices: Left chest pacer with intact leads, in good position. Lungs and pleura: Rightward rotation. Low volumes with crowding. Left hemidiaphragm elevation. No fo alcides consolidation, pleural effusion, or pneumothorax. Cardiomediastinal silhouette: Stable. Other: No acute osseous or upper abdominal finding. IMPRESSION: No acute cardiopulmonary process. Reviewed, dictated and finalized at location K.
[2023-10-13 14:32] VITALS: BP 151/76; PULSE 90; RESP 16; TEMP 36.4; O2SAT 99
[2023-10-13 15:09] VITALS: BP 159/79; PULSE 90; RESP 20; O2SAT 99
[2023-10-13 15:10] VITALS: PULSE 88
[2023-10-13 15:33] VITALS: BP 146/78; PULSE 88; RESP 21; O2SAT 100
[2023-10-13 16:15] LABS: Basophils Percent Auto 0.4 % (0.2-1.2); Eosinophils Absolute Auto 0.3 K/mm3 (0-0.3); Eosinophils Percent Auto 2.7 % (0-4.4); Hematocrit 42.8 % (42.0-52.0); Hemoglobin 14.5 g/dL (14.0-18.0); Immature Granulocyte Absolute 0.04 K/mm3 (0.00-0.031); Immature Granulocyte Percent A 0.4 % (0-0.5); Lymphocytes Absolute Auto 2.14 K/mm3 (0.9-3.2); Lymphocytes Percent Auto 23.3 % (18.3-44.2); Mean Corpuscular HGB Conc 33.9 g/dl (32-36); Mean Corpuscular Hemoglobin 31.6 pg (26-34); Mean Corpuscular Volume 93.2 fl (80-100); Mean Platelet Volume 9.3 fl (7.4-10.4); Monocytes Percent Auto 11.3 % (2.6-8.5); Neutrophils Absolute Auto 5.7 K/mm3 (1.3-6.7); Neutrophils Percent Auto 61.9 % (45.5-73.1); Platelet Count Result 241 k/mm3 (150-375); Red Blood Count 4.59 M/mm3 (4.6-6.20); Red Cell Distribution Width 12.8 % (11.5-14.5); White Blood Count 9.2 K/mm3 (4.5-10.0)
[2023-10-13 16:26] LABS: Alanine Aminotransferase 22 U/L (6-50); Albumin Level 4.1 g/dL (3.5-5.1); Alkaline Phosphatase 78 U/L (38-126); Anion Gap 6 mmol/L (4-12); Aspartate Amino Transferase 26 U/L (17-59); Bilirubin,Total 1.5 mg/dL (0.2-1.3); Blood Urea Nitrogen 22 mg/dL (9-20); Calcium 9.1 mg/dL (8.4-10.2); Carbon Dioxide 27 mmol/L (22-30); Chloride 101 mmol/L (98-107); Estimated CRCL calculation 47 ml/min; Estimated Glomerular Filt Rate 53; Glucose 125 mg/dL (65-110); Potassium 4.2 mmol/L (3.4-5.0); Sodium 134 mmol/L (137-145)
[2023-10-13 16:34] LABS: NT Pro B Type Natriuretic Pept 912 pg/mL (19.9-100)
[2023-10-13 17:02] LABS: Appearance Urine Clear (Clear); Bilirubin Urine Negative (Negative); Blood Urine Negative (Negative); Color Urine Yellow (Yellow); Glucose Urine UA Negative (Negative); Ketones Urine Negative (Negative); Leukocyte Esterase Ur Negative LEU/UL (Negative); Nitrate Urine Negative (Negative); Protein Urine Negative (Negative); Urobilinogen Urine 0.2 mg/dL (<2.0); pH Urine 6.5 (5.0-9.0)
--- NOTE | 2023-10-13 17:06 | ED.GENADULT ---
HPI - General Adult General Chief complaint: Unspecified Stated complaint: uti Time Seen by Provider: 10/13/23 15:06 History of Present Illness HPI narrative: patient is an 83-year-old male who presents ER with concerns for confusion. Patient has dementia and has been more forgetful this week. went to the PCP office with her on Saturday and they ordered outpatient blood work that has not yet returned. There was concern he might be having urinary tract infection so he is started on levofloxacin. He has taken 2 doses. No fevers or chills or sweats. No new cough. Has no reports of pain. He has been eating a issue. Of note patient also has persistent swelling of his lower extremities. He has chronic venous stasis changes. He is noncompliant with any lotions as been prescribed foot on his legs. He does take all his pills because his makes him. Related Data Home Medications Medication Instructions Recorded Confirmed finasteride 5 mg tablet 5 mg PO DAILY 11/08/21 06/24/23 furosemide 20 mg tablet 20 mg PO BID 11/08/21 06/24/23 memantine 10 mg tablet 10 mg PO BID 11/08/21 06/24/23 spironolactone 50 mg tablet 50 mg PO DAILY 11/08/21 06/24/23 apixaban 2.5 mg tablet (Eliquis) 2.5 mg PO BID 12/12/22 06/24/23 duloxetine 20 mg capsule,delayed 20 mg PO .pm 12/12/22 06/24/23 release mecobalamin (vitamin B12) 1,000 1,000 mcg PO DAILY 12/12/22 06/24/23 mcg chewable tablet melatonin 3 mg capsule 3 mg PO QHS 12/12/22 06/24/23 omega-3 fatty acids 1,000 mg 1,000 mg PO DAILY 12/12/22 06/24/23 capsule cholecalciferol (vitamin D3) 25 50 mcg PO DAILY 06/24/23 mcg (1,000 unit) capsule Allergies Allergy/AdvReac Type Severity Reaction Status Date / Time donepezil Allergy Hallucinati Verified 10/13/23 15:33 ng Review of Systems Review of Systems: ROS unobtainable: Yes unobtainable due to mental status PMFSH Past Medical History Medical History BPH (benign prostatic hyperplasia) Leg swelling Spinal stenosis Social History Social History Smoking status: Never smoker Alcohol intake: unknown Substance use: unknown Lack of Transportation: No Lack of Food: Never True Current Housing: I Have Housing Concerned About Future Housing: No Difficulty Paying Gas/Electric Bills: No Difficulty Paying for Meds: No Currently Unemployed: No Education: High School Diploma/GED Difficulty w/ Childcare or Family Care: No Living arrangements: with family Gender identity (if verbalized by the patient): Male Exam Narrative: GENERAL: Well-appearing, well-nourished, and in no acute distress. HEAD: Normocephalic, atraumatic. ENT: Mucous membranes moist. NECK: Supple. CHEST: Clear to auscultation. No respiratory distress. HEART: Regular rate and rhythm. Normal peripheral pulses. ABDOMEN: Soft, nontender, nondistended. EXTREMITIES: Normal range of motion. +2 edema. SKIN: Warm, dry, no rash. NEURO: Alert and oriented x2. PSYCH: Normal mood and affect. Course Course Emergency Course: I reviewed patient's results included imaging with his spouse. Patient appropriate for discharge home. Will increase diuretic for the next couple days to help with lower extremity edema. Vital Signs Vital signs: Vital Signs Temperature 97.6 F 10/13/23 14:32 Pulse Rate 90 10/13/23 14:32 Respiratory Rate 16 10/13/23 14:32 Blood Pressure 151/76 H 10/13/23 14:32 Pulse Oximetry 99 10/13/23 14:32 Temperature 97.6 F 10/13/23 14:32 Pulse Rate 92 10/13/23 17:59 Respiratory Rate 19 10/13/23 17:59 Blood Pressure 147/67 H 10/13/23 17:59 Pulse Oximetry 98 10/13/23 17:59 Medical Decision Making Vital Signs Vital Signs: Vital Signs Temperature 97.6 F 10/13/23 14:32 Pulse Rate 90 10/13/23 14:32 Respiratory Rate 16 10/13/23 14:32 Blood Pressur
[2023-10-13 17:08] LABS: Add Urine Microscopic? NO
[2023-10-13 17:59] VITALS: BP 147/67; PULSE 92; RESP 19; O2SAT 98
[2023-10-13 18:30] VITALS: RESP 18
== END 2023-10-13 18:30 | disposition home or self-care (01) ==
PROVIDERS: Emergency Provider Emergency Medicine; PCP Internal Medicine
DX: F03.90 Unspecified dementia, unspecified severity, without behavioral disturbance, psychotic disturbance, mood disturbance, and anxiety (principal); R60.0 Localized edema; N40.0 Benign prostatic hyperplasia without lower urinary tract symptoms; Z79.01 Long term (current) use of anticoagulants
CPT/HCPCS: 36415; 71045; 80053; 81003; 83880; 85025; 99284

== ENCOUNTER 2023-12-09 12:18 | Outpatient (CLI) | payer MEDICARE, SELFPAY ==
[2023-12-09 12:33] LABS: Hematocrit 39.1 % (37.0-46.0); Mean Corpuscular HGB Conc 33.2 g/dL (32-36); Mean Corpuscular Hemoglobin 31.2 pg (27.0-31.0); Mean Corpuscular Volume 93.8 fL (78.0-102.0); Mean Platelet Volume 9.1 fl (8.7-11.0); Platelet Count Result 277 K/mm3 (150-420); Red Blood Count 4.17 M/mm3 (4.70-6.10); Red Cell Distribution Width 12.7 % (11.6-14.4); White Blood Count 10.2 K/mm3 (4.8-10.8)
[2023-12-09 12:59] LABS: Albumin Level 3.3 g/dL (3.4-5.0); Anion Gap 11 mmol/L (4-12); Blood Urea Nitrogen 15 mg/dL (7-18); Calcium 8.6 mg/dL (8.5-10.1); Carbon Dioxide 25 mmol/L (21-32); Chloride 100 mmol/L (98-108); Estimated Glomerular Filt Rate 48; Glucose 181 mg/dL (70-99); Osmolality Calculated 287 mOsm/kg (285-295); Phosphorus 3.7 mg/dL (2.6-4.7); Potassium 4.4 mmol/L (3.5-5.1); Sodium 136 mmol/L (136-145)
[2023-12-10 09:54] LABS: Vitamin D 25 Hydroxy 38 ng/mL (30-100)
[2023-12-10 16:38] LABS: Parathyroid Intact 85 pg/mL (16-77)
== END 2023-12-09 12:19 | disposition home or self-care (01) ==
LOC: CHSLAB 12:20
PROVIDERS: PCP Internal Medicine; Visit Provider Internal Medicine Nephrology
DX: N18.31 Chronic kidney disease, stage 3a (principal); E87.1 Hypo-osmolality and hyponatremia; E21.1 Secondary hyperparathyroidism, not elsewhere classified
CPT/HCPCS: 36415; 80069; 82306; 83970; 85027

== ENCOUNTER 2023-12-10 09:59 | Outpatient (CLI) | payer MEDICARE, SELFPAY ==
[2023-12-10 10:17] LABS: Creatinine Urine 194.18 mg/dL (40-278); Total Protein Urine Random 44.3 mg/dL (0.0-11.9); Ur Ttl Prot Creatinine Ratio 0.23 mg/mg (0-0.20)
== END 2023-12-10 10:00 | disposition home or self-care (01) ==
LOC: CHSLAB 10:03
PROVIDERS: PCP Internal Medicine; Visit Provider Internal Medicine Nephrology
DX: E21.1 Secondary hyperparathyroidism, not elsewhere classified (principal); N18.31 Chronic kidney disease, stage 3a; E87.1 Hypo-osmolality and hyponatremia
CPT/HCPCS: 82570; 84156

== ENCOUNTER 2023-12-27 15:06 | Outpatient (CLI) | payer MEDICARE, SELFPAY ==
[2023-12-27 15:53] LABS: Anion Gap 9 mmol/L (4-12); Blood Urea Nitrogen 20 mg/dL (7-18); Calcium 8.7 mg/dL (8.5-10.1); Carbon Dioxide 26 mmol/L (21-32); Chloride 97 mmol/L (98-108); Estimated Glomerular Filt Rate 53; Glucose 220 mg/dL (70-99); Osmolality Calculated 283 mOsm/kg (285-295); Potassium 4.2 mmol/L (3.5-5.1); Sodium 132 mmol/L (136-145)
== END 2023-12-27 15:07 | disposition home or self-care (01) ==
LOC: CHSLAB 15:07
PROVIDERS: PCP Internal Medicine; Visit Provider Internal Medicine Nephrology
DX: N18.31 Chronic kidney disease, stage 3a (principal); E21.1 Secondary hyperparathyroidism, not elsewhere classified; E87.1 Hypo-osmolality and hyponatremia
CPT/HCPCS: 36415; 80048

== ENCOUNTER 2024-01-03 13:59 | Outpatient (CLI) | payer MEDICARE, SELFPAY ==
[2024-01-03 14:28] LABS: Hematocrit 38.9 % (37.0-46.0); Hemoglobin 13.3 g/dL (12.4-15.3); Mean Corpuscular HGB Conc 34.2 g/dL (32-36); Mean Corpuscular Hemoglobin 31.4 pg (27.0-31.0); Mean Corpuscular Volume 91.7 fL (78.0-102.0); Mean Platelet Volume 9.4 fl (8.7-11.0); Platelet Count Result 249 K/mm3 (150-420); Red Blood Count 4.24 M/mm3 (4.70-6.10); Red Cell Distribution Width 12.7 % (11.6-14.4); White Blood Count 8.2 K/mm3 (4.8-10.8)
[2024-01-03 15:04] LABS: Alanine Aminotransferase 27 U/L (16-63); Albumin Level 3.3 g/dL (3.4-5.0); Alkaline Phosphatase 75 U/L (46-116); Anion Gap 9 mmol/L (4-12); Aspartate Amino Transferase 17 U/L (15-37); Bilirubin,Total 0.7 mg/dL (0.00-1.00); Blood Urea Nitrogen 12 mg/dL (7-18); Calcium 8.5 mg/dL (8.5-10.1); Carbon Dioxide 26 mmol/L (21-32); Chloride 99 mmol/L (98-108); Estimated Glomerular Filt Rate 53; Glucose 199 mg/dL (70-99); Magnesium 2.2 mg/dL (1.8-2.4); Osmolality Calculated 283 mOsm/kg (285-295); Potassium 4.1 mmol/L (3.5-5.1); Sodium 134 mmol/L (136-145); Total Protein 7.1 g/dL (6.4-8.2)
[2024-01-03 16:59] LABS: Appearance Urine Clear (Clear); Bilirubin Urine Negative (Negative); Blood Urine Negative (Negative); Color Urine Light Yellow (Yellow); Glucose Urine UA Negative (Negative); Ketones Urine Negative (Negative); Leukocyte Esterase Ur Negative (Negative); Nitrate Urine Negative (Negative); Protein Urine Negative (Negative); Urobilinogen Urine 0.2 mg/dL (0.2-1.0)
[2024-01-03 17:07] LABS: Add Urine Microscopic? NO
== END 2024-01-03 14:00 | disposition home or self-care (01) ==
LOC: CHSLAB 14:00
PROVIDERS: PCP Internal Medicine; Visit Provider Internal Medicine
DX: R53.83 Other fatigue (principal); R39.81 Functional urinary incontinence; I10 Essential (primary) hypertension
CPT/HCPCS: 36415; 80053; 81003; 83735; 85027; 87086; 87088

== ENCOUNTER 2024-01-17 14:15 | Outpatient (CLI) | payer MEDICARE, SELFPAY ==
[2024-01-17 17:38] LABS: Creatinine Urine 61.14 mg/dL (40-278); Total Protein Urine Random 12.1 mg/dL (0.0-11.9)
[2024-01-19 02:38] LABS: Vitamin D 25 Hydroxy 36 ng/mL (30-100)
== END 2024-01-17 14:16 | disposition home or self-care (01) ==
LOC: CHSLAB 14:17
PROVIDERS: PCP Internal Medicine; Visit Provider Internal Medicine Nephrology
DX: N18.31 Chronic kidney disease, stage 3a (principal); E21.1 Secondary hyperparathyroidism, not elsewhere classified; E87.1 Hypo-osmolality and hyponatremia
CPT/HCPCS: 36415; 82306; 82570; 84156

== ENCOUNTER 2024-01-21 17:28 | Emergency (ER) | payer MEDICARE, SELFPAY ==
[2024-01-21 18:01] VITALS: BP 124/64; PULSE 72; RESP 16; TEMP 36.3; O2SAT 98
[2024-01-21 18:51] VITALS: BP 159/68; PULSE 68; RESP 19; O2SAT 100
[2024-01-21 19:10] LABS: Basophils Absolute Auto 0.1 K/mm3 (0.0-0.1); Basophils Percent Auto 0.8 % (0.2-1.2); Eosinophils Absolute Auto 0.2 K/mm3 (0-0.3); Hematocrit 42.6 % (42.0-52.0); Hemoglobin 14.4 g/dL (14.0-18.0); Immature Granulocyte Absolute 0.01 K/mm3 (0.00-0.031); Immature Granulocyte Percent A 0.1 % (0-0.5); Lymphocytes Absolute Auto 2.63 K/mm3 (0.9-3.2); Lymphocytes Percent Auto 33.2 % (18.3-44.2); Mean Corpuscular HGB Conc 33.8 g/dl (32-36); Mean Corpuscular Hemoglobin 31.2 pg (26-34); Mean Corpuscular Volume 92.2 fl (80-100); Mean Platelet Volume 9.7 fl (7.4-10.4); Monocytes Absolute Auto 1.2 K/mm3 (0.1-0.6); Monocytes Percent Auto 15.2 % (2.6-8.5); Neutrophils Absolute Auto 3.9 K/mm3 (1.3-6.7); Neutrophils Percent Auto 48.7 % (45.5-73.1); Platelet Count Result 226 k/mm3 (150-375); Red Blood Count 4.62 M/mm3 (4.6-6.20); Red Cell Distribution Width 13.2 % (11.5-14.5); White Blood Count 7.9 K/mm3 (4.5-10.0)
[2024-01-21 19:25] LABS: Alanine Aminotransferase 22 U/L (6-50); Albumin Level 4.5 g/dL (3.5-5.1); Alkaline Phosphatase 83 U/L (38-126); Anion Gap 13 mmol/L (4-12); Aspartate Amino Transferase 36 U/L (17-59); Bilirubin,Total 1.3 mg/dL (0.2-1.3); Blood Urea Nitrogen 26 mg/dL (9-20); Calcium 8.8 mg/dL (8.4-10.2); Carbon Dioxide 28 mmol/L (22-30); Chloride 92 mmol/L (98-107); Estimated CRCL calculation 42 ml/min; Estimated Glomerular Filt Rate 45; Glucose 145 mg/dL (65-110); Potassium 3.5 mmol/L (3.4-5.0); Sodium 133 mmol/L (137-145)
--- NOTE | 2024-01-21 19:54 | ED.GENADULT ---
HPI - General Adult General Chief complaint: Unspecified Stated complaint: I dont know why my brought me here Time Seen by Provider: 01/21/24 18:42 Source: family Mode of arrival: ambulatory Limitations: no limitations History of Present Illness HPI narrative: 83-year-old with a history of dementia, CKD here with a complaint of weakness since this morning. Right foot the main historian states that patient was sleeping all day and he soiled himself twice. She she is worried about possible dehydration. He states that Dr. Joyce increased his Lasix dosage to 40 mg twice a day for 2 days ago and she is worried that it could be causing him to feel weak. Patient however denies any chest pain or shortness of breath. No history of nausea vomiting or diarrhea. Onset (ago): day(s) (1) Severity: mild Treatments prior to arrival: none Related Data Home Medications Medication Instructions Recorded Confirmed finasteride 5 mg tablet 5 mg PO DAILY 11/08/21 12/27/23 memantine 10 mg tablet 10 mg PO BID 11/08/21 12/27/23 spironolactone 50 mg tablet 50 mg PO DAILY 11/08/21 12/27/23 apixaban 2.5 mg tablet (Eliquis) 2.5 mg PO BID 12/12/22 12/27/23 duloxetine 20 mg capsule,delayed 20 mg PO .pm 12/12/22 12/27/23 release mecobalamin (vitamin B12) 1,000 1,000 mcg PO DAILY 12/12/22 12/27/23 mcg chewable tablet omega-3 fatty acids 1,000 mg 1,000 mg PO DAILY 12/12/22 12/27/23 capsule cholecalciferol (vitamin D3) 25 50 mcg PO DAILY 06/24/23 12/27/23 mcg (1,000 unit) capsule latanoprost 0.005 % eye drops 1 drp EACH EYE QPM 12/25/23 12/27/23 montelukast 10 mg tablet 10 mg PO QHS 12/25/23 12/27/23 Allergies Allergy/AdvReac Type Severity Reaction Status Date / Time donepezil Allergy Hallucinati Verified 01/21/24 18:51 ng Review of Systems Review of Systems: All systems reviewed & are unremarkable except as noted in HPI and below Constitutional: Constitutional: Reports no additional constitutional complaints Eyes: Eyes: Reports no additional eye complaints ENT: Reports system reviewed and no additional complaints, except as documented Cardiovascular: Cardiovascular: Reports no additional cardiovascular complaints Respiratory: Respiratory: Reports no additional respiratory complaints Gastrointestinal: Gastrointestinal: Reports no additional gastrointestinal complaints Musculoskeletal: Musculoskeletal: Reports no additional musculoskeletal complaints PMFSH Past Medical History Medical History BPH (benign prostatic hyperplasia) Leg swelling Spinal stenosis Social History Social History Smoking status: Never smoker Alcohol intake: unknown Substance use: unknown Do You Feel Safe in your Home?: Yes Lack of Transportation: No Lack of Food: Never True Current Housing: I Have Housing Concerned About Future Housing: No Difficulty Paying Gas/Electric Bills: No Difficulty Paying for Meds: No Currently Unemployed: No Education: High School Diploma/GED Difficulty w/ Childcare or Family Care: No Living arrangements: with family Gender identity (if verbalized by the patient): Male Exam Narrative: GENERAL: Well-appearing, well-nourished, and in no acute distress. HEAD: Normocephalic, atraumatic. EYES: PERRLA and EOMI. ENT: Nares clear, no rhinorrhea or epistaxis. Mucous membranes moist. NECK: Supple. CHEST: Clear to auscultation. No respiratory distress. HEART: Regular rate and rhythm. No murmur heard. Normal peripheral pulses. ABDOMEN: Soft, nontender, nondistended, normal active bowel sounds. EXTREMITIES: Normal range of motion. No edema. SKIN: Warm, dry, no rash. NEURO: No focal deficits. Alert and oriented x3. PSYCH: Normal mood and affect. Course Course Emergency Course: Patient comfortably resting and stress. Informed him and his about the lab work. They fe
[2024-01-21 20:09] VITALS: BP 145/76; PULSE 71; RESP 18; O2SAT 97
== END 2024-01-21 20:11 | disposition home or self-care (01) ==
PROVIDERS: Emergency Provider Family Medicine; PCP Internal Medicine
DX: N18.30 Chronic kidney disease, stage 3 unspecified (principal); R53.1 Weakness; N40.0 Benign prostatic hyperplasia without lower urinary tract symptoms
CPT/HCPCS: 36415; 80053; 85025; 99283

== ENCOUNTER 2024-06-06 12:06 | Emergency (ER) | payer MEDICARE, SELFPAY ==
[2024-06-06] VITALS (19 sets, daily range): BP systolic 140–160; BP diastolic 65–77; PULSE 18–86; RESP 16–78; TEMP 36.5; O2SAT 96–100
[2024-06-06 12:42] LABS: Basophils Absolute Auto 0.04 K/mm3 (0.00-0.10); Basophils Percent Auto 0.4 % (0.0-1.0); Eosinophils Absolute Auto 0.32 K/mm3 (0.02-0.50); Eosinophils Percent Auto 3.5 % (1.0-6.0); Hematocrit 37.1 % (37.0-46.0); Immature Granulocyte Absolute 0.02 K/mm3 (0.00-0.00); Immature Granulocyte Percent A 0.2 % (0.0-0.0); Lymphocytes Absolute Auto 2.56 K/mm3 (1.10-4.50); Lymphocytes Percent Auto 27.7 % (18.0-42.0); Mean Corpuscular Volume 91.4 fL (78.0-102.0); Mean Platelet Volume 9.2 fl (8.7-11.0); Monocytes Absolute Auto 1.17 K/mm3 (0.10-0.90); Monocytes Percent Auto 12.7 % (2.0-11.0); Neutrophils Absolute Auto 5.12 K/mm3 (1.70-7.20); Neutrophils Percent Auto 55.5 % (50.0-70.0); Platelet Count Result 244 K/mm3 (150-420); Red Blood Count 4.06 M/mm3 (4.70-6.10); Red Cell Distribution Width 12.8 % (11.6-14.4); White Blood Count 9.2 K/mm3 (4.8-10.8)
[2024-06-06 12:56] LABS: Alanine Aminotransferase 15 U/L (16-63); Albumin Level 3.3 g/dL (3.4-5.0); Anion Gap 9 mmol/L (4-12); Aspartate Amino Transferase 12 U/L (15-37); Bilirubin,Total 0.7 mg/dL (0.00-1.00); Blood Urea Nitrogen 22 mg/dL (7-18); Calcium 9.1 mg/dL (8.5-10.1); Carbon Dioxide 30 mmol/L (21-32); Chloride 95 mmol/L (98-108); Estimated CRCL calculation 35 ml/min; Estimated Glomerular Filt Rate 47; Glucose 128 mg/dL (70-99); Osmolality Calculated 283 mOsm/kg (285-295); Potassium 3.6 mmol/L (3.5-5.1); Sodium 134 mmol/L (136-145); Total Protein 3.8 g/dL (6.4-8.2)
[2024-06-06 13:01] LABS: Lactic Acid Reflex 1.4 mmol/L (0.4-2.0)
--- NOTE | 2024-06-06 13:14 | ED.SKABFB ---
HPI - Skin/Abscess/Foreign Bdy General Chief complaint: Skin/Abscess/Foreign Body Stated complaint: edema misti legs Source: patient, family and EMS Mode of arrival: ambulatory Limitations: no limitations History of Present Illness HPI narrative: Patient is an 83-year-old male with a significant past medical history that presents today with a wound to his lower left extremity. Patient has bilateral lower extremity edema and takes 80 mg Lasix in the morning and 40 mg of Lasix at nighttime. This was just recently adjusted. He was having extreme bilateral lower extremity Edema. He has congestive heart failure. Patient has bad diarrhea and diarrhea this offer was brought in To the emergency department today. he has dementia and is a poor historian. Most information was given by his . She said he has diarrhea daily she tries to keep well hydrated he also has excessive heart failure and has lot of lower extremity edema. She says that 3 days ago he was washing his lower extremity below the knee where he has a stasis dermatitis and he full off a large piece of skin that is very erythematous possibly turned into cellulitis because it was an open wound. MD complaint: discoloration ( Venous stasis dermatitis bilateral lower extremities, left lower extremity cellulitis) Onset (ago): day(s) Tetanus up to date: yes Location: LLE Severity: mild Relieving factors: none Exacerbating factors: none Context: none Associated symptoms: denies other symptoms Treatments prior to arrival: none Related Data Home Medications Medication Instructions Recorded Confirmed finasteride 5 mg tablet 5 mg PO DAILY 11/08/21 06/06/24 memantine 10 mg tablet 10 mg PO BID 11/08/21 06/06/24 spironolactone 50 mg tablet 50 mg PO DAILY 11/08/21 06/06/24 apixaban 2.5 mg tablet (Eliquis) 2.5 mg PO BID 12/12/22 06/06/24 duloxetine 20 mg capsule,delayed 20 mg PO .pm 12/12/22 06/06/24 release mecobalamin (vitamin B12) 1,000 1,000 mcg PO DAILY 12/12/22 06/06/24 mcg chewable tablet omega-3 fatty acids 1,000 mg 1,000 mg PO DAILY 12/12/22 06/06/24 capsule cholecalciferol (vitamin D3) 25 50 mcg PO DAILY 12/18/23 11/30/24 mcg (1,000 unit) capsule latanoprost 0.005 % eye drops 1 drp EACH EYE QPM 12/25/23 06/06/24 montelukast 10 mg tablet 10 mg PO QHS 12/25/23 06/06/24 Allergies Allergy/AdvReac Type Severity Reaction Status Date / Time donepezil Allergy Hallucinati Verified 06/06/24 12:25 ng Review of Systems Review of Systems: All systems reviewed & are unremarkable except as noted in HPI and below Constitutional: Constitutional: Reports as per HPI Eyes: Eyes: Reports no additional eye complaints ENT: Reports system reviewed and no additional complaints, except as documented Cardiovascular: Cardiovascular: Reports as per HPI Comments: CHF Respiratory: Respiratory: Reports no additional respiratory complaints Gastrointestinal: Gastrointestinal: Reports no additional gastrointestinal complaints Genitourinary: Genitourinary: Reports no additional male genitourinary complaints Musculoskeletal: Musculoskeletal: Reports no additional musculoskeletal complaints Integumentary/Breasts: Skin/Breast: Reports as per HPI and Reports erythema Comments: open wound on left lower extremity below the knee wound is round 12 cm x 6 cm. Neurologic: Reports system reviewed and no additional complaints, except as documented Psychiatric: Psychiatric: Reports as per HPI Endocrine: Endocrine: Reports no additional endocrine complaints Hematologic/Lymphatic: Hematologic/Lymphatic: Reports no additional hematologic/lymphatic complaints Allergic/Immunologic: Allergic/Immunologic: Reports no additional allergic/immunologic complaints [facility] Past Medical History Medical History BPH (benign prostatic hyperplasia) Leg swelling Spinal stenosis Social History Social History Smoking status: Never smoker Alcohol intake: unknown Substance use: unknown Do You Feel Safe in your Home?: Yes Lack of Transportation: No Lack of Food: Never True Current Housing: I Have Housing Concerned About Future Housing: No Difficulty Paying Gas/Electric Bills: No Difficulty Paying for Meds: No Currently Unemployed: No Education: High School Diploma/GED Difficulty w/ Childcare or Family Care: No Living arrangements: with family Gender identity (if verbalized by the patient): Male Exam Const: General: healthy appearing Nutritional Appearance: well nourished Orientation/consciousness: patient oriented x3 HENMT: Head: normal to inspection Ears: external ears normal Face/Nose/Sinus: Normal external nose present Face and sinus: normal facial exam Eyes: Conjunctivae: conjunctivae normal Pupils: Equal, round and reactive pupils present Neck: Neck: normal visual inspection Chest: Chest palpation & inspection: normal inspection of the chest Resp: Effort & Inspection: normal respiratory effort Auscultation: clear to auscultation bilaterally Cardio: Rate: regular rate Rhythm: regular rhythm Heart sounds: Murmur heart sound present diastolic and systolic GI: Auscultation: normal bowel sounds : General: Yes bladder normal to palpation Back/Spine/Pelvis: Back: no CVA tenderness Skin: General skin exam: normal color Rashes: no rashes Wounds: wounds noted (on left LE anterior 12 x 6 cm) Neuro: General: patient oriented x3, moves all extremities and no meningeal signs Extrem: General: normal to inspection Psych: Mental Status: mental status grossly normal Course Vital Signs Vital signs: Vital Signs Temperature 97.7 F 06/06/24 12:17 Pulse Rate 81 06/06/24 12:17 Respiratory Rate 18 06/06/24 12:17 Blood Pressure 160/67 H 06/06/24 12:17 Pulse Oximetry 100 06/06/24 12:17 Oxygen Delivery Room Air 06/06/24 12:17 Temperature 97.7 F 06/06/24 12:17 Pulse Rate 81 06/06/24 12:17 Respiratory Rate 18 06/06/24 12:17 Blood Pressure 160/67 H 06/06/24 12:17 Pulse Oximetry 100 06/06/24 12:17 Oxygen Delivery Room Air 06/06/24 12:17 MDM - Skin/Abscess/Foreign Bdy MDM Narrative Medical decision making narrative: Patient has dementia is poor historian but I spoke to the and she said that he tore the skin off around 3 days ago. So has been opened since then has not been probably cleaned or dressed. He already had extremity venous stasis dermatitis in that area as he does in the right side as well. Today CBC and CMP he and for most part was in normal limits, creatinine slightly raise high since he is slightly dehydrated, although he has PAD CHF and cannot be fluid overloaded. Fluids are not warranted in this stay as he does not look dry. Will start her on doxycycline and continue on doxycycline. He will definitely need wound care for this wound and instructed his to take him to his PCP for wound care referral on Saturday. Differential Diagnosis Differential diagnosis: Likely cellulitis Medical Records Attestation: I reviewed the patient's medical records. Lab Data Attestation: I reviewed the patient's lab results. 06/06/24 12:37 06/06/24 12:37 Labs: Lab Results 06/06/24 Range/Units 12:37 WBC 9.2 (4.8-10.8) K/mm3 RBC 4.06 L (4.70-6.10) M/mm3 Hgb 13.0 (12.4-15.3) g/dL Hct 37.1 (37.0-46.0) % MCV 91.4 (78.0-102.0) fL MCH 32.0 H (27.0-31.0) pg MCHC 35.0 (32-36) g/dL RDW 12.8 (11.6-14.4) % Plt Count 244 (150-420) K/mm3 MPV 9.2 (8.7-11.0) fl Immature Gran % (Auto) 0.2 H (0.0-0.0) % Neut % (Auto) 55.5 (50.0-70.0) % Lymph % (Auto) 27.7 (18.0-42.0) % [place] % (Auto) 12.7 H (2.0-11.0) % Eos % (Auto) 3.5 (1.0-6.0) % Baso % (Auto) 0.4 (0.0-1.0) % Lymph # (Auto) 2.56 (1.10-4.50) K/mm3 [place] # (Auto) 1.17 H (0.10-0.90) K/mm3 Eos # (Auto) 0.32 (0.02-0.50) K/mm3 Baso # (Auto) 0.04 (0.00-0.10) K/mm3 Abs Immat Gran (auto) 0.02 H (0.00-0.00) K/mm3 Absolute Neuts (auto) 5.12 (1.70-7.20) K/mm3 Absolute Nucleated RBC 0.00 (0.00-0.00) K/mm3 Nucleated RBC % 0.0 (0-0.0) % Sodium 134 L (136-145) mmol/L Potassium 3.6 (3.5-5.1) mmol/L Chloride 95 L (98-108) mmol/L Carbon Dioxide 30 (21-32) mmol/L Anion Gap 9 (4-12) mmol/L BUN 22 H (7-18) mg/dL Creatinine 1.45 H (0.70-1.30) mg/dL Estim Creat Clear Calc 35 ml/min Estimated GFR 47 L (59 - ) Glucose 128 H (70-99) mg/dL Calculated Osmolality 283 L (285-295) mOsm/kg Lactic Acid 1.4 (0.4-2.0) mmol/L Calcium 9.1 (8.5-10.1) mg/dL Total Bilirubin 0.7 (0.00-1.00) mg/dL AST 12 L (15-37) U/L ALT 15 L (16-63) U/L Alkaline Phosphatase Pending Total Protein 3.8 L (6.4-8.2) g/dL Albumin 3.3 L (3.4-5.0) g/dL Discharge Plan Discharge Clinical Impression: Cellulitis Patient Disposition: Home, Self-Care Condition: Stable Instructions: Antibiotic Form, Cellulitis (ED) Additional Instructions: Take antibiotics as prescribed. Follow-up wound care on Saturday and have wound dressed and changed and managed by wound care. Prescriptions: New doxycycline hyclate 100 mg tablet 100 mg PO BID Qty: 20 0RF No Action finasteride 5 mg Tablet 5 mg PO DAILY spironolactone 50 mg tablet 50 mg PO DAILY memantine 10 mg Tablet 10 mg PO BID mecobalamin (vitamin B12) 1,000 mcg tablet,chewable 1,000 mcg PO DAILY duloxetine 20 mg capsule,delayed release(DR/EC) 20 mg PO .pm omega-3 fatty acids 1,000 mg capsule 1,000 mg PO DAILY Eliquis 2.5 mg tablet 2.5 mg PO BID montelukast 10 mg tablet 10 mg PO QHS latanoprost 0.005 % drops 1 drp EACH EYE QPM cholecalciferol (vitamin D3) 25 mcg (1,000 unit) capsule 50 mcg PO DAILY furosemide 40 mg tablet 40 mg PO .COMPLEX Qty: 90 8RF Rx Instructions: 40 mg orally two tabs in am and one tab in pm; Follow-up/Referrals: Bryant Jain MD [Primary Care Provider] - Time of Disposition: 13:30
[2024-06-06 13:20] LABS: Alkaline Phosphatase 90 U/L (46-116)
[2024-06-06 13:26] LABS: Add Urine Microscopic? NO; Appearance Urine Clear (Clear); Bilirubin Urine Negative (Negative); Blood Urine Negative (Negative); Color Urine Light Yellow (Yellow); Glucose Urine UA Negative (Negative); Ketones Urine Negative (Negative); Leukocyte Esterase Ur Negative (Negative); Nitrate Urine Negative (Negative); Protein Urine Negative (Negative); Urobilinogen Urine 0.2 mg/dL (0.2-1.0)
[2024-06-06] MEDS: DOXYCYCLINE HYCLATE 100 MG TABLET PO (13:42)
== END 2024-06-06 14:30 | disposition home or self-care (01) ==
PROVIDERS: Emergency Provider Family Medicine; PCP Internal Medicine
DX: L03.116 Cellulitis of left lower limb (principal); I11.0 Hypertensive heart disease with heart failure; I50.9 Heart failure, unspecified; Z79.899 Other long term (current) drug therapy; Z79.01 Long term (current) use of anticoagulants
CPT/HCPCS: 36415; 51702; 80053; 81003; 83605; 85025; 99283; A9270

== ENCOUNTER 2024-06-11 10:16 | Outpatient (CLI) | payer MEDICARE, SELFPAY ==
[2024-06-11 10:31] LABS: Hematocrit 35.4 % (37.0-46.0); Hemoglobin 12.6 g/dL (12.4-15.3); Mean Corpuscular HGB Conc 35.6 g/dL (32-36); Mean Corpuscular Hemoglobin 32.2 pg (27.0-31.0); Mean Corpuscular Volume 90.5 fL (78.0-102.0); Mean Platelet Volume 8.9 fl (8.7-11.0); Platelet Count Result 293 K/mm3 (150-420); Red Blood Count 3.91 M/mm3 (4.70-6.10); Red Cell Distribution Width 12.7 % (11.6-14.4); White Blood Count 9.8 K/mm3 (4.8-10.8)
[2024-06-11 10:53] LABS: Albumin Level 3.3 g/dL (3.4-5.0); Anion Gap 14 mmol/L (4-12); Blood Urea Nitrogen 21 mg/dL (7-18); Calcium 8.8 mg/dL (8.5-10.1); Carbon Dioxide 24 mmol/L (21-32); Chloride 98 mmol/L (98-108); Estimated Glomerular Filt Rate 45; Glucose 217 mg/dL (70-99); Osmolality Calculated 292 mOsm/kg (285-295); Phosphorus 2.9 mg/dL (2.6-4.7); Potassium 3.6 mmol/L (3.5-5.1); Sodium 136 mmol/L (136-145)
[2024-06-12 15:32] LABS: Parathyroid Intact 84 pg/mL (16-77)
== END 2024-06-11 10:17 | disposition home or self-care (01) ==
LOC: CHSLAB 10:18
PROVIDERS: PCP Internal Medicine; Visit Provider Internal Medicine Nephrology
DX: E21.1 Secondary hyperparathyroidism, not elsewhere classified (principal); E87.1 Hypo-osmolality and hyponatremia; N18.31 Chronic kidney disease, stage 3a
CPT/HCPCS: 36415; 80069; 83970; 85027

== ENCOUNTER 2024-09-04 12:28 | Outpatient (CLI) | payer MEDICARE, SELFPAY | END 2024-09-04 12:29 | disposition home or self-care (01) | LOC: CHSIMG 12:29 | PROVIDERS: PCP Internal Medicine | DX: L97.221 Non-pressure chronic ulcer of left calf limited to breakdown of skin (principal); I73.9 Peripheral vascular disease, unspecified | CPT/HCPCS: 93922 ==

== ENCOUNTER 2024-12-08 16:29 | Outpatient (CLI) | payer MEDICARE, SELFPAY ==
--- OUTSIDE RECORDS SUMMARY | 2024-12-08 16:32 | XMS_ITS | Clinical Summary ---
Author Organization [facility] Address [address] [place] [address] Care Team Providers Care Education Nurse Name Role Phone Bryant Jain MD Primary Care Provider [phone] Daphne Auguste MD Unavailable [phone] Source Comments [facility],non-owned Affiliates and Associated Physician Practices is amultiple site organization consisting of ambulatory clinics and hospital sitesin [place], [place], [place] and [place]. This disclosure is being madepursuant to the Care Everywhere program and may not contain all information available regarding this patient. Last updated 18.[facility] Allergies Active Allergy Reactions Criticality Noted Date Comments Donepezil Other 11/21/2021 Delusional Medications * Be aware that medications may not be up to date on this document. Alwaysverify current medications with the patient. aspirin (ASPIRIN) 81 MG chew tablet Take 81 mg by mouth once daily Active finasteride (PROSCAR) 5 MG tablet Take 1 (one) tablet by mouth once daily Active furosemide (LASIX) 20 MG tablet Take 1 (one) tablet by mouth 2 times daily Active latanoprost (XALATAN) 0.005 % ophthalmic solution 1 (one) drop at bedtime Active melatonin 3 MG tablet Take 1 (one) tablet by mouth at bedtime Active memantine (NAMENDA) 10 MG tablet Take 1 (one) tablet by mouth 2 times daily Active [id number] ethyl esters (LOVAZA) 1 g capsule Take 1 (one) capsule by mouth once daily Active cyanocobalamin (VITAMIN B-12) 1000 MCG tablet Take 1 (one) tablet by mouth once daily Active vitamin D3 (CHOLECALCIFERO L) 25 MCG (1000 UNITS) tablet Take 1 (one) tablet by mouth once daily Active Multiple Vitamins-Minera ls (SYSTANE ICAPS AREDS2) CAPS Take 1 capsule by mouth at bedtime Active fexofenadine (Kayleen) 180 MG tablet Take 1 (one) tablet by mouth once daily Active brimonidine (Alphagan) 0.2 % ophthalmic solution 03/22/2022 Active apixaban (Eliquis) 2.5 MG tablet Take 1 (one) tablet by mouth 2 times daily 180 tablet 3 03/27/2023 Active spironolactone (Aldactone) 50 MG tablet Take 1 (one) tablet by mouth every morning 03/15/2023 Active Active Problems Problem Noted Date Diagnosed Date Dyspnea 04/03/2023 04/03/2023 Stage 3a chronic kidney disease 01/04/2022 04/03/2023 Hypertensive disorder 11/21/2021 First degree atrioventricular block 11/21/2021 Complete heart block 11/08/2021 Dementia 07/07/2018 04/03/2023 Encephalopathy 05/05/2018 04/03/2023 History of snoring 08/28/2016 04/03/2023 Encounters Date Type Department Care Team Description 10/28/2024 8:00 AM CDT Clinical Support [facility] [address] [address] Daphne Auguste MD S/P placement of cardiac pacemaker ; Complete heart block (HCC) 10/28/2024 Travel 09/15/2024 9:00 AM CDT Clinical Support [facility] [address], [address] [address] Daphne Auguste MD Cardiac pacemaker in situ ; Complete heart block; S/P placement of cardiac pacemaker; Sick sinus syndrome from Last 3 Months Social History Tobacco Use Types Packs/Day Years Used Date Smoking Tobacco: Former Cigarettes 1 10 1 - 1989 Cigars Smokeless Tobacco: Never Alcohol Use Standard Drinks/Week Comments Not Currently 0 (1 standard drink = 0.6 oz pur e alcohol) Hunger Vital Sign Answer Date Recorded Within the past 12 months, y ou worried that your food would run out before you got the money to buy more. Never true 11/11/19 22 Within the past 12 months, t he food you bought just didn't last and you didn't have money to get more. Never true 11/10/2021 Sex and Gender Information Value Date Recorded Sex Assigned at Not on file Legal Sex Male 4:39 PM CDT Gender Identity Not on file Sexual Orientation Not on file Last Filed Vital Signs Vital Sign Reading Time Taken Comments Blood Pressure 137/76 04/03/2023 10:45 AM CDT Pulse 60 04/03/2023 10:45 AM CDT Temperature 37 C (98.6 F) 11/10/2021 12:15 PM CDT Respiratory Rate 20 11/10/2021 12:1 5 PM CDT Oxygen Saturation 97% 04/04/2022 11: 46 AM CDT Inhaled Oxygen Concentration - - Weight 95.6 kg (210 lb 12.8 oz) 023 10:45 AM CDT Height 180.3 cm (5' 10.98) 04/03/2023 10:45 AM CDT Body Mass Index 29.41 04/03/2023 10:45 AM CDT Plan of Treatment Upcoming Encounters Date Type Department Care Team (Late st Contact Info) Description 12/15/2024 9:00 AM CDT Clinical Support [facility] [address] [place] [address] [address] [place] [address] Daphne Auguste MD [address] [facility] [address] [place] [phone] Health Maintenance Due Date Last Done Comments DTAP/TDAP/TD VACCINES (1 - Tdap) 1960 PNEUMOCOCCAL VACCINE 50+ (1 of 1 - PCV) 1991 ZOSTER VACCINE (1 of 2) 1991 Respiratory Syncytial Virus (RSV) Vaccine Pt: or over 60 yrs (1 - 1-dose 75+ series) 2016 COVID-19 VACCINE (1 - season) 2024 DEPRESSION SCREENING 07/08/2024 INFLUENZA VACCINE (Season Ended) 2025 04/15/2023, 04/21/2022, 03/21/2018, Additional history exists HEPATITIS B VACCINE Aged Out No longe r eligible based on patient's age to complete this topic HIB VACCINE Aged Out No longer eligi ble based on patient's age to complete this topic HPV VACCINE Aged Out No longer eligi ble based on patient's age to complete this topic MENINGOCOCCAL (Group B) VACCINE SHARED DECISION-MAKING Aged Out No longer eligible based on patient's age to complete this topic MENINGOCOCCAL GROUPS A/C/Y/W VACCINE Aged Out No longer eligible based on patient's age to complete this topic Procedures Procedure Name Priority Date/Time Associated Diagnosis Comments PACEMAKER CLINIC CHECK Routine 10/28/2024 9:38 AM CDT Complete heart block (HCC) S/P placement of cardiac pacemaker PACEMAKER CLINIC CHECK Routine 09/16/2024 9:57 AM CDT Complete heart block S/P placement of cardiac pacemaker from Last 3 Months Advance Directives * Full Code (Latest Code Status on File) Date Activated Date Inactivated Comments 11/08/2021 7:15 PM 11/10/2021 2:59 PM Care Teams Education Nurse Relationship Specialty Start Date End Date Bryant Jain MD [address] [place] [address] PCP - General Internal Medicine 11/21/21 [place] [address] [place] [address] Cardiovascular Disease 12/19/21
--- OUTSIDE RECORDS SUMMARY | 2024-12-08 16:32 | XMS_ITS | Clinical Summary ---
Author Organization [facility] Address [address] [place] [phone] Care Team Providers Care Protection Manager Name Role Phone Bryant Jain MD Primary Care Provider [phone] Allergies Active Allergy Reactions Criticality Noted Date Comments Donepezil Agitation High 03/31/2024 Medications brimonidine (ALPHAGAN) 0.2 % ophthalmic solution Administer 1 drop into both eyes 2 (two) times a day Active cholecalciferol 25 mcg (1,000 unit) tablet Take 1 tablet (1,000 Units total) by mouth daily Active cyanocobalamin (Vitamin B-12) 1,000 mcg tablet Take 1 tablet (1,000 mcg total) by mouth daily Active docusate sodium (COLACE) 100 mg capsule Take 1 capsule (100 mg total) by mouth 2 (two) times a day [address] (CYMBALTA) 20 mg capsule Take 1 capsule (20 mg total) by mouth daily 4 Active fexofenadine (SLIM) 180 mg tablet Take 1 tablet (180 mg total) by mouth daily Active finasteride (PROSCAR) 5 mg tablet Take 1 tablet (5 mg total) by mouth daily Active furosemide (LASIX) 40 mg tablet Take 1 tablet (40 mg total) by mouth 2 (two) times a day 2 in the am and 1 in pm 4 Active memantine (NAMENDA) 10 mg tablet Take 1 tablet (10 mg total) by mouth 2 (two) times a day Active melatonin tablet Take 1 tablet (3 mg total) by mouth nightly 8 Active latanoprost (XALATAN) 0.005 % ophthalmic solution Administer 1 drop into both eyes nightly Active montelukast (SINGULAIR) 10 mg tablet Take 1 tablet (10 mg total) by mouth every evening Active spironolactone (ALDACTONE) 50 mg tablet Take 1 tablet (50 mg total) by mouth every morning Active Eliquis 2.5 mg tablet Take 1 tablet (2.5 mg total) by mouth 2 (two) times a day 60 tablet 11 4 04/10/20 25 Active Active Problems No known active problems Encounters Date Type Department Care Team Description 12/03/2024 Telephone Globe Shutdown Coordinator at [address] [place] [phone] Opal Lemons MA from Last 3 Months Social History Tobacco Use Types Packs/Day Years Used Date Smoking Tobacco: Never Tobacco Cessation:Counseling Given: Not Answered Personal Safety Answer Date Recorded Getting School Help Needed Not on file 03/05 Sex and Gender Information Value Date Recorded Sex Assigned at Not on file 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 Gender Identity Not on file Sexual Orientation Not on file Obstetrics History Last Filed Vital Signs Vital Sign Reading Time Taken Comments Blood Pressure 127/76 03/31/2024 2:03 PM CDT Pulse 83 03/31/2024 2:03 PM CDT Temperature - - Respiratory Rate - - Oxygen Saturation - - Inhaled Oxygen Concentration - - Weight 99.3 kg (219 lb) 03/31/2024 2:03 PM CDT Height 180.3 cm (5' 11) 03/31/2024 2:03 PM CDT Body Mass Index 30.54 03/31/2024 2:03 PM CDT Plan of Treatment Health Maintenance Due Date Last Done Comments Depression Screening 1940 Fall Risk Assessment 1940 Hepatitis B Screening 1959 Zoster Vaccine (1 of 2) 1991 DTaP/Tdap/Td Vaccine (1 - Tdap) 07/31/2006 7 Well Visit 65+ 2006 Covid-19 Vaccine (6 - 2023-2 5 season) 2024 04/01/2023, 09/30/2022, 07/14/2021, Additional history exists Influenza Vaccine (Season Ended) 2025 04/01/2023, 04/21/2022, 03/07/2022, Additional history exists Pneumococcal vaccine 65+ Completed 06/08/2015, 05/09 Insurance MEDICARE [facility] Care Teams Protection Manager Relationship Specialty Start Date End Date Bryant Jain MD PCP - General Internal Medicine 03/05/24
--- OUTSIDE RECORDS SUMMARY | 2024-12-08 16:32 | XMS_ITS | Patient Health Record ---
Author Organization [facility] Address [address] [place], [place] [id number] Care Team Providers Care Medical Assistant Internal Medicine Name Role Phone JUAN ALBERTO Fair Unavailable [phone] CristobalNainBryant Unavailable Unavailable DESTINNikole EVIE Unavailable [phone] JUAN TONG Unavailable [phone] TORIE ROB Unavailable [phone] Allergies No Known Allergies Reason For Referral No Information Medications Medication SIG (Take, Route, Frequency, Duration) Notes Start Date End Date Status ergocalciferol 1.25 MG Oral Capsule ORAL ergocalciferol 1.25 MG Oral CapsuleOriginal Medicationergocalciferol 1.25 MG Oral Capsule *Reorder from [employer] for eRx and Interaction Alerts* 0 Unknown aspirin 81 MG Delayed Release Oral Tablet ORAL aspirin 81 MG Delayed Release Oral TabletOriginal Medicationaspirin 81 MG Delayed Release Oral Tablet *Reorder from [employer] for eRx and Interaction Alerts* 0 Unknown Ammonium Lactate 12 % 1 application Externally Twice a day 3 Active terazosin 10 MG Oral Capsule ORAL terazosin 10 MG Oral CapsuleOriginal Medicationterazosin 10 MG Oral Capsule *Reorder from [employer] for eRx and Interaction Alerts* 0 Unknown Melatonin 3 MG Oral Capsule ORAL melatonin 3 MG Oral CapsuleOriginal Medicationmelatonin 3 MG Oral Capsule *Reorder from [facility] for eRx and Interaction Alerts* 0 Unknown Immunizations Vaccine Route Administration Date Status Comme nts Influenza, high dose seasonal Unknown 04/15/2023 Admini stered Vital Signs Height-cm 177.80 cm 01/30/2024 Weight-kg 86.18 kg 01/30/2024 Height 70.00 in 01/30/2024 Weight 190 lbs 01/30/2024 BMI 27.26 kg/m2 01/30/2024 Encounters Encounter Location Date Provider Diagnosis [address] [id number] 01/30/2024 JUAN TONG Tinea unguium B35.1 ; Pain in right toe(s) M79.674 ; Pain in left toe(s) M79.675 ; Unspecified atherosclerosis of [place] arteries of extremities, bilateral legs I70.203 and Xerosis cutis L85.3 [address] [place], [place] [id number] 04/09/2024 JUAN TONG Tinea unguium B35.1 ; Pain in right toe(s) M79.674 ; Pain in left toe(s) M79.675 ; Unspecified atherosclerosis of [place] arteries of extremities, bilateral legs I70.203 and Xerosis cutis L85.[address] [id number] 06/11/2024 JUAN TONG Tinea unguium B35.1 ; Pain in right toe(s) M79.674 ; Pain in left toe(s) M79.675 ; Unspecified atherosclerosis of [place] arteries of extremities, bilateral legs I70.203 and Xerosis cutis L85.[address] [id number] 08/27/2024 EVIEBEREKET GALLEGOS Tinea unguium B35.1 ; Pain in right toe(s) M79.674 ; Pain in left toe(s) M79.675 and Atherosclerosis of [place] arteries of extremities with intermittent claudication, bilateral legs I70.213 Assessments Encounter Date Diagnosis (ICD Code) Assessment Notes Treatment Notes Treatment Clinical Notes Section Notes 01/30/2024 Tinea unguium (ICD-10 - B35.1) Aseptic debridement of elongated thickened nails x 10 using sterile nippers, nails were debrided in length and thickness by 30% utilizing a nail nipper without incident. The patient was educated regarding all treatment options that include topical and oral antifungal treatments. I discussed the options of taking a sample of the nail to confirm diagnosis. Nail clippings were not sent for pathology analysis. The patient was educated why and how the fungal infection evolved in their feet and the patient was given information regarding how to prevent further infection. The patient was told to keep feet dry and change socks. The patient was told to be careful with old shoes and excessive sweating. The patient was educated regarding both OTC and prescription treatments. 01/30/2024 Pain in right toe(s) (ICD-10 - M79.674) 04/09/2024 Tinea unguium (ICD-10 - B35.1) Aseptic debridement of elongated thickened nails x 10 using sterile nippers, nails were debrided in length and thickness by 30% utilizing a nail nipper without incident. The patient was educated regarding all treatment options that include topical and oral antifungal treatments. I discussed the options of taking a sample of the nail to confirm diagnosis. Nail clippings were not sent for pathology analysis. The patient was educated why and how the fungal infection evolved in their feet and the patient was given information regarding how to prevent further infection. The patient was told to keep feet dry and change socks. The patient was told to be careful with old shoes and excessive sweating. The patient was educated regarding both OTC and prescription treatments. 04/09/2024 Pain in right toe(s) (ICD-10 - M79.674) 06/11/2024 Tinea unguium (ICD-10 - B35.1) Aseptic debridement of elongated thickened nails x 10 using sterile nippers, nails were debrided in length and thickness by 30% utilizing a nail nipper without incident. The patient was educated regarding all treatment options that include topical and oral antifungal treatments. I discussed the options of taking a sample of the nail to confirm diagnosis. Nail clippings were not sent for pathology analysis. The patient was educated why and how the fungal infection evolved in their feet and the patient was given information regarding how to prevent further infection. The patient was told to keep feet dry and change socks. The patient was told to be careful with old shoes and excessive sweating. The patient was educated regarding both OTC and prescription treatments. 06/11/2024 Pain in right toe(s) (ICD-10 - M79.674) 08/27/2024 Tinea unguium (ICD-10 - B35.1) FUNGAL TOENAILS: Discussed various treatment options for fungal toenails including debridement, topical antifungals, oral antifungals, toenail avulsion, or toenail matrixectomy. NAIL DEBRIDEMENT: Nails 1-5 Bilateral were debrided extensively with nail nippers and emery board, reducing length and girth to pink healthy tissue with any subungual debris and necrotic tissue removed 08/27/2024 Pain in right toe(s) (ICD-10 - M79.674) 08/27/2024 Pain in left toe(s) (ICD-10 - M79.675) 06/11/2024 Pain in left toe(s) (ICD-10 - M79.675) 04/09/2024 Pain in left toe(s) (ICD-10 - M79.675) 01/30/2024 Pain in left toe(s) (ICD-10 - M79.675) 01/30/2024 Unspecified atherosclerosis of [place] arteries of extremities, 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) Patient educated on risks and aggravating factors of PVD, including conservative treatment options such as a diet and exercise regimen to aid in slowing progression of vascular disease 04/09/2024 Unspecified atherosclerosis of [place] arteries of extremities, 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) Patient educated on risks and aggravating factors of PVD, including conservative treatment options such as a diet and exercise regimen to aid in slowing progression of vascular disease 06/11/2024 Unspecified atherosclerosis of [place] arteries of extremities, 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) Patient educated on risks and aggravating factors of PVD, including conservative treatment options such as a diet and exercise regimen to aid in slowing progression of vascular disease 08/27/2024 Atherosclerosis of [place] arteries of extremities with intermittent claudication, bilateral legs (ICD-10 - I70.213) 06/11/2024 Xerosis cutis (ICD-10 - L85.3) The patient was educated regarding proper hydration of their feet/ankles and the patient was given several recommendations for proper creams to protect/hydrate and keep the area healthy. Continue with use of lotion to be applied to feet daily. 04/09/2024 Xerosis cutis (ICD-10 - L85.3) The patient was educated regarding proper hydration of their feet/ankles and the patient was given several recommendations for proper creams to protect/hydrate and keep the area healthy. Continue with use of lotion to be applied to feet daily. 01/30/2024 Xerosis cutis (ICD-10 - L85.3) The patient was educated regarding proper hydration of their feet/ankles and the patient was given several recommendations for proper creams to protect/hydrate and keep the area healthy. Continue with use of lotion to be applied to feet daily. 11/19/2024 Other Plan Of Treatment No Information Insurance Providers Payer Name Payer Address Payer Phone Subscriber Number Group Number Insured Name Patient Relationship to Insured Coverage Start Date Coverage End Date Medicare Part B [place] [address] [place] [address] [id number] MANUELA FERRARI Self - patient is the insured [facility] ([facility]) ATTN CLAIMS [address] [place] [address] [id number] MANUELA FERRARI Self - patient is the insured
--- OUTSIDE RECORDS SUMMARY | 2024-12-08 16:32 | XMS_ITS ---
Author Organization [facility] Address [address] [place], [place] [id number] Care Team Providers Care Teachers' Aide Name Role Phone JUAN ALBERTO Fair Unavailable [phone] Bryant Jain Unavailable Unavailable EVIE GALLEGOS Unavailable [phone] REASON FOR VISIT *General care Encounters Encounter Location Date Provider Diagnosis [address] [id number] 08/13/2024 EVIE GALLEGOS Plan Of Treatment No Information Progress Notes * MANUELA FERRARI EDOB:1940 (84 yo M)Acc No.[id number]:08/13/2024 Patient: MANUELA GABRIEL Provider: Meghan Gallegos DPM :1940 A ge:84 Y S ex:Male Date:08/13/2024 Address:[address] [place], [place] [phone] Subjective: * Chief Complaints: * 1 . *General care. * Medical History: Objective: * Vitals: Assessment: Plan: * Treatment: * Billing Information: * Visit Code: * Procedure Codes: * Electronic signature of EVIE GALLEGOS DPM on 12/08/2024 at 04:32 PM CDT Sign off status: Pending * Provider: Meghan Gallegos DPM Date: 0 08/13/2024 Generated for [employer] parr/Juan Carlos/eTransmitting on: 12/08/2024 04:32 PM CDT
--- OUTSIDE RECORDS SUMMARY | 2024-12-08 16:32 | XMS_ITS | Clinical Summary ---
Author Organization [facility] Th[facility] nicole Address [address] [place] [id number] Phone Care Team Providers Care Tug Hand Name Role Phone Bryant Jain MD Primary Care Provider [phone] Allergies Active Allergy Reactions Criticality Noted Date Comments Donepezil Unknown 07/07/2018 Other reaction(s): Other Delusional Medications cholecalciferol (VITAMIN D-3) 25 MCG (1000 UT) tablet Take 1,000 Units by mouth daily Active cyanocobalamin (VITAMIN B-12) 1000 MCG tablet Take 1,000 mcg by mouth daily Active finasteride (PROSCAR) 5 MG tablet Take 5 mg by mouth daily Active fluorometholone (FML) 0.1 % ophthalmic suspension 11/11/2018 Active furosemide (LASIX) 20 MG tablet Take 20 mg by mouth 2 times daily Active latanoprost (XALATAN) 0.005 % ophthalmic solution 1 drop Active melatonin 3 MG tablet Take 3 mg by mouth 05/07/2018 Active memantine (NAMENDA) 10 MG tablet Take 10 mg by mouth 2 times daily 01/01/2020 Active Multiple Vitamins-Minera ls (Systane ICaps AREDS2) capsule Take 1 capsule by mouth every night Active omega-3 (FISH OIL) 1000 MG capsule Take 1 g by mouth daily Active spironolactone (ALDACTONE) 50 MG tablet Take 50 mg by mouth daily Active Apixaban 2.5 MG tablet Take 2.5 mg by mouth in the morning and 2.5 mg in the evening. 04/04/2022 Active brimonidine (ALPHAGAN) 0.2 % ophthalmic solution 03/22/2022 Active Active Problems Problem Noted Date Diagnosed Date Chronic kidney disease stage 3A 01/04/2022 First degree atrioventricular block 11/21/2021 Hypertensive disorder 11/21/2021 Complete heart block 11/08/2021 Dementia 07/07/2018 H/O: respiratory disease 08/28/2016 Immunizations Immunization Administration Dates Next Due Influenza TIV (IM) 04/21/2022 Influenza, Unspecified 03/21/2018,2016,03/23/2016,04/25/2015 ,04/15/2014,05/06/2013,05/20/2012, 1 Pneumococcal Conjugate 13-Valent 06/08/2015 Pneumococcal, Unspecified 05/29/2013 TD Preservative Free 07/30/2006 Family History Medical History Relation Comments Kidney disease Neg Hx Social History Tobacco Use Types Packs/Day Years Used Date Smoking Tobacco: Never Smokeless Tobacco: Never Alcohol Use Standard Drinks/Week Comments Yes 0 (1 standard drink = 0.6 oz pur e alcohol) rare Sex and Gender Information Value Date Recorded Sex Assigned at Not on file Legal Sex Male 9:05 AM MDT Gender Identity Not on file Sexual Orientation Not on file Last Filed Vital Signs Vital Sign Reading Time Taken Comments Blood Pressure 128/80 06/11/2022 1:37 PM MACHINIST AUTOMOTIVE Pulse 60 06/11/2022 1:37 PM MACHINIST AUTOMOTIVE Temperature 36.2 C (97.2 F) 06/11/2022 1:37 PM MACHINIST AUTOMOTIVE Respiratory Rate - - Oxygen Saturation - - Inhaled Oxygen Concentration - - Weight 103 kg (226 lb) 06/11/2022 1:37 PM MACHINIST AUTOMOTIVE Height 180.3 cm (5' 11) 06/11/2022 1:37 PM MACHINIST AUTOMOTIVE Body Mass Index 31.52 06/11/2022 1:37 PM MACHINIST AUTOMOTIVE Plan of Treatment Health Maintenance Due Date Last Done Comments Pneumococcal PPSV23/PCV13 65 + Years / High and Highest Risk (2 of 4 - PPSV23) 08/03/2015 06/08/2015 Influenza Vaccine (Season Ended) 2025 04/21/2022, 03/21/2018, 04/04/2017, Additional history exists Insurance MEDICARE [facility] Care Teams Tug Hand Relationship Specialty Start Date End Date Bryant Jain MD [address] [place] [address] PCP - General Internal Medicine 11/23/21
--- OUTSIDE RECORDS SUMMARY | 2024-12-08 16:32 | XMS_ITS | Referral Summary ---
Author Organization [facility] [place] [facility] Address [address] [place] [id number] Care Team Providers Care Retail Store Assistant Name Role Phone Bryant Jain MD Primary Care Provider [phone] Encounters Date Type Department Care Team Description 12/03/2024 Telephone [facility] at [address] [place] [address] Opal Lemons MA from Last 3 Months Allergies Active Allergy Reactions Criticality Noted Date [...] (10 mg total) by mouth every evening 4 Active spironolactone (ALDACTONE) 50 mg tablet Take 1 tablet (50 mg total) by mouth every morning Active Eliquis 2.5 mg tablet Take 1 tablet (2.5 mg total) by mouth 2 (two) times a day 60 tablet 11 4 04/10/20 25 Active Active Problems No known active problems Social History Tobacco Use Types Packs/Day Years Used Date Smoking Tobacco: Never Tobacco Cessation:Counseling Given: Not Answered Personal Safety Answer Date Recorded Getting School Help Needed Not on file 03/05 Sex and Gender Information Value Date Recorded Sex Assigned at Not on file Legal Sex Male 7:37 PM CEMENTER Gender Identity Not on file Sexual Orientation [...] 03/31/2024 2:03 PM CDT Plan of Treatment Not on file Insurance MEDICARE [facility] [place] Care Teams Retail Store Assistant Relationship Specialty Start Date End Date Bryant Jain MD PCP - General Internal Medicine 03/05/24
--- OUTSIDE RECORDS SUMMARY | 2024-12-08 16:33 | XMS_ITS | Clinical Summary ---
Author Organization Unknown Care Team Providers Care Meter Record Clerk Name Role Phone SAEED HARRIS Unavailable Unavailable GIGI REGISTERED NURSE, JOSE M Unavailable Unavailable MODESTO PHYSICAL THERAPIST, JAIME Unavailabl e Unavailable [employer] OUTDOOR GUIDE, HERBERT Unavail able Unavailable LILLY SOL COUNSELOR, ARAM Unavailable Unavailable BEBETO REGISTERED NURSE, BONNY Unavailable Unavailable Payers Payer Name Policy Type Policy Number Effective Date Expira tion Date MEDICARE [place] - EPISODIC [id number] Problems Condition Name Condition Details Condition Category Status Onset Date Resolution Date Last Treatment Date Treating Clinician Comments ESSENTIAL (PRIMARY) HYPERTENSION Active 07-08 00:00: 00 CELLULITIS OF LEFT LOWER LIMB Active 07-08 00:00: 00 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 S Active 07-08 00:00: 00 UNSP DEMENTIA, UNSP SEVERITY, WITH OTHER BEHAVIORAL DISTURB Active 07-08 00:00: 00 DEFICIENCY OF OTHER SPECIFIED B GROUP VITAMINS Active 07-08 00:00: 00 ATRIOVENTRIC ULAR BLOCK, COMPLETE Active 07-08 00:00: 00 VITAMIN D DEFICIENCY, UNSPECIFIED Active 07-08 00:00: 00 SPINAL STENOSIS, LUMBOSACRAL REGION Active 07-08 00:00: 00 OTH DISRD OF BONE DENSITY AND STRUCTURE, UNSPECIFIED SITE Active 07-08 00:00: 00 BENIGN PROSTATIC HYPERPLASIA WITH LOWER URINARY TRACT SYMP Active 07-08 00:00: 00 OTHER SPECIFIED URINARY INCONTINENCE Active 07-08 00:00: 00 ALLERGIC RHINITIS, UNSPECIFIED Active 07-08 00:00: 00 [facility] (CURRENT) USE OF ANTICOAGULAN TS Active 07-08 00:00: 00 HISTORY OF FALLING Active 07-08 00:00: 00 Allergies, Adverse Reactions, Alerts Allergy Name Allergy Type Status Severity Reaction(s) Onset Date Inactive Date Treating Clinician Comments DONEPEZIL Propensity to adverse reactions Active 2023-07 10:27: 24 Medications Ordered Medication Name Filled Medication Name Start Date Stop Date Current Medication? Ordering Clinician Indication Dosage Frequency Signature (SIG) Comments Components Allergy Relief (fexofenadi ne) 180 mg tablet 2023-07 00:00: 00 Yes [id number] ALLERGIES 1 tablet ONCE DAILY 1 tablet ONCE DAILY (route: oral) Med Classific ation: Respirato ry Therapy Agents cefdinir 300 mg capsule 2023-07 00:00: 00 07-01 23:59 :00 No [id number] CELLULITIS TO LEFT LOWER EXTREMITY 1 capsule TWICE DAILY 1 capsule TWICE DAILY (route: oral) Med Classific ation: Anti-Infe ctive Agents docusate sodium 100 mg capsule 2023-07 00:00: 00 Yes [id number] CONSTIPATIO N 2 capsule TWICE DAILY 2 capsule TWICE DAILY (route: oral) Med Classific ation: Gastroint estinal Therapy Agents doxycycline monohydrate 100 mg capsule 2023-07 00:00: 00 07-01 23:59 :00 No [id number] CELLULITIS TO LEFT LOWER LEG 1 capsule TWICE DAILY 1 capsule TWICE DAILY (route: oral) Med Classific ation: Anti-Infe ctive Agents duloxetine 20 mg capsule,del ayed release 2023-07 00:00: 00 Yes [id number] LEG PAIN 1 capsule ONCE DAILY 1 capsule ONCE DAILY (route: oral) Med Classific ation: Central Nervous System Agents Eliquis 2.5 mg tablet 2023-07 00:00: 00 Yes [id number] BLOOD CLOT PREVENTION 1 tablet TWICE DAILY 1 tablet TWICE DAILY (route: oral) Med Classific ation: Hematolog ical Agents finasteride 5 mg tablet 2023-07 00:00: 00 Yes [id number] URINARY FLOW 1 tablet ONCE DAILY 1 tablet ONCE DAILY (route: oral) Med Classific ation: Genitouri nary Therapy Fish Oil 1,000 mg (120 mg-180 mg) capsule 2023-07 00:00: 00 Yes [id number] TRIGLYCERID E LOWER AGENT 1 capsule TWICE DAILY 1 capsule TWICE DAILY (route: oral) Med Classific ation: Cardiovas cular Therapy Agents furosemide 40 mg tablet 2023-07 00:00: 00 Yes [id number] FLUID RETENTION Per instruc tions TWICE DAILY Per instructio ns TWICE DAILY (route: oral) Med Classific ation: Cardiovas cular Therapy Agents gabapentin 100 mg capsule 2023-07 00:00: 00 Yes [id number] LEG PAIN Per instruc tions TWICE DAILY Per instructio ns TWICE DAILY (route: oral) Med Classific ation: Central Nervous System Agents I-Caps 280 mg-10 mg-2 mg capsule 2023-07 00:00: 00 Yes [id number] EYE HEALTH 1 capsule ONCE DAILY 1 capsule ONCE DAILY (route: oral) Med Classific ation: Electroly te Balance-N utritiona l Products latanoprost 0.005 % eye drops 2023-07 00:00: 00 Yes [id number] EYE PRESSURE 1 drops AT BEDTIME 1 drops AT BEDTIME (route: ophthalmic (eye)) Med Classific ation: Ophthalmi c Agents mecobalamin (vitamin B12) 1,000 mcg disintegrat ing tablet,subl ingual 2023-07 00:00: 00 Yes [id number] SUPPLEMENT 1 tablet ONCE DAILY 1 tablet ONCE DAILY (route: sublingual ) Med Classific ation: Electroly te Balance-N utritiona l Products melatonin 5 mg tablet 2023-07 00:00: 00 Yes [id number] DEMENTIA/SL EEP 1 tablet AT BEDTIME 1 tablet AT BEDTIME (route: oral) Med Classific ation: Central Nervous System Agents memantine 10 mg tablet 2023-07 00:00: 00 Yes [id number] DEMENTIA 1 tablet TWICE DAILY 1 tablet TWICE DAILY (route: oral) Med Classific ation: Cognitive Disorder Therapy montelukast 10 mg tablet 2023-07 00:00: 00 Yes [id number] ALLERGIES 1 tablet ONCE DAILY 1 tablet ONCE DAILY (route: oral) Med Classific ation: Respirato ry Therapy Agents spironolact one 50 mg tablet 2023-07 00:00: 00 Yes [id number] HYPERTENSIO N 1 tablet ONCE DAILY 1 tablet ONCE DAILY (route: oral) Med Classific ation: Cardiovas cular Therapy Agents Vitamin D3 50 mcg (2,000 unit) capsule 2023-07 00:00: 00 Yes [id number] SUPPLEMENT/ VITAMIN D DEF 1 capsule ONCE DAILY 1 capsule ONCE DAILY (route: oral) Med Classific ation: Electroly te Balance-N utritiona l Products silver sulfadiazin e 1 % topical cream 2023-07 00:00: 00 10-19 00:00 :00 No [id number] CELLULITIS WOUND TO LLE Per instruc tions ONCE DAILY Per instructio ns ONCE DAILY (route: topical) Med Classific ation: Dermatolo gical doxycycline monohydrate 100 mg capsule 08-24 00:00: 00 09-07 23:59 :00 No [id number] POSSIBLE INFECTION IN LEG WOUND 1 capsule TWICE DAILY 1 capsule TWICE DAILY (route: oral) Med Classific ation: Anti-Infe ctive Agents Immunizations Ordered Immunization Name Filled Immunization Name Date Status Comments Refusal Reason INFLUENZA, TIV (INACTIVATED) 2024-04-23 00:00:00 PNEUMOCOCCAL (PPV), PPV 2015-06-08 00:00:00 Vital Signs Vital Name Observation Time Observation Value Commen ts Temperature 2024-12-07 13:46:00.000 98 [degF] Temperature 2024-11-26 09:35:00.000 98.1 [degF] Temperature 2024-11-12 11:18:00.000 98 [degF] Temperature 2024-11-02 20:42:00.000 97.7 [degF] Pulse 2024-12-07 13:46:00.000 72 /min Pulse 2024-11-26 09:35:00.000 84 /min Pulse 2024-11-12 11:18:00.000 86 /min Pulse 2024-11-02 20:42:00.000 80 /min O2 Saturation (%) 2024-12-07 13:46:00.000 97 % O2 Saturation (%) 2024-11-26 09:35:00.000 98 % O2 Saturation (%) 2024-11-12 11:18:00.000 97 % O2 Saturation (%) 2024-11-02 20:42:00.000 98 % Respirations 2024-12-07 13:46:00.000 20 /min Respirations 2024-11-26 09:35:00.000 18 /min Respirations 2024-11-12 11:18:00.000 18 /min Respirations 2024-11-02 20:42:00.000 20 /min Weight (lbs) 2024-11-12 11:24:00.000 208.6 [lb_av] Systolic Blood Pressure 2024-12-07 13:46:00.000 118 mm [Hg] Systolic Blood Pressure 2024-11-26 09:35:00.000 138 mm [Hg] Systolic Blood Pressure 2024-11-12 11:18:00.000 125 mm [Hg] Systolic Blood Pressure 2024-11-02 20:42:00.000 136 mm [Hg] Diastolic Blood Pressure 2024-12-07 13:46:00.000 62 mm [Hg] Diastolic Blood Pressure 2024-11-26 09:35:00.000 80 mm [Hg] Diastolic Blood Pressure 2024-11-12 11:18:00.000 77 mm [Hg] Diastolic Blood Pressure 2024-11-02 20:42:00.000 78 mm [Hg] Plan of Treatment Planned Activity Planned Date Details Comments Future Scheduled Test SKILLED NU RSE TO INSTRUCT PATIENT/CAREGIVER ON WHAT IS HYPERTENSION, HOW TO CHECK HIS/HER BLOOD PRESSURE, AND STRATEGIES TO USE TO CONTROL BLOOD PRESSURE SUCH MONITORING BP, SMOKING CESSATION, MANAGING BLOOD GLUCOSE RESULTS TO AN ACCEPTABLE RANGE, MONITORING WEIGHTS, ENGAGING IN PHYSICAL ACTIVITY AIMING FOR 150 MINUTES SPREAD THROUGHOUT THE WEEK. [code = SKILLED NURSE TO INSTRUCT PATIENT/CAREGIVER ON WHAT IS HYPERTENSION, HOW TO CHECK HIS/HER BLOOD PRESSURE, AND STRATEGIES TO USE TO CONTROL BLOOD PRESSURE SUCH MONITORING BP, SMOKING CESSATION, MANAGING BLOOD GLUCOSE RESULTS TO AN ACCEPTABLE RANGE, MONITORING WEIGHTS, ENGAGING IN PHYSICAL ACTIVITY AIMING FOR 150 MINUTES SPREAD THROUGHOUT THE WEEK.] Future Scheduled Test THE CER TIFYING PHYSICIAN, ASSOCIATED PHYSICIAN, NPP OR PA WITHIN THE SAME GROUP MAY APPROVE AND SIGN THE ORDER (ON ANY PAGE) ATTESTING THAT THE COMPREHENSIVE OUTCOME ASSESSMENTS, EVALUATIONS, AND HOME HEALTH CERTIFICATION PLANS SUPPORT HOMEBOUND STATUS. HOME HEALTH WEB-PORTAL DOCUMENTATION ACCESSED BY THE PHYSICIAN MUST BE INCORPORATED INTO THE MEDICAL RECORD TO CORROBORATE THE PHYSICIAN, NPP, OR PAS F2F ENCOUNTER TO SUPPORT ELIGIBILITY FOR HOME HEALTH SERVICES. [code = THE HH CERTIFYING PHYSICIAN, ASSOCIATED PHYSICIAN, NPP OR PA WITHIN THE SAME GROUP MAY APPROVE AND SIGN THE ORDER (ON ANY PAGE) ATTESTING THAT THE COMPREHENSIVE OUTCOME ASSESSMENTS, EVALUATIONS, AND HOME HEALTH CERTIFICATION PLANS SUPPORT HOMEBOUND STATUS. HOME HEALTH WEB-PORTAL DOCUMENTATION ACCESSED BY THE PHYSICIAN MUST BE INCORPORATED INTO THE MEDICAL RECORD TO CORROBORATE THE PHYSICIAN, NPP, OR PAS F2F ENCOUNTER TO SUPPORT ELIGIBILITY FOR HOME HEALTH SERVICES.] Future Scheduled Test EACH ORDER ED IN-HOME OR TELEHEALTH VISIT, THE SKILLED NURSE WILL CONDUCT A COMPREHENSIVE ASSESSMENT INCLUDING VITAL SIGNS, PAIN, SAFETY, MENTAL/COGNITIVE/PSYCHOSOCIAL STATUS, MED MANAGEMENT, NUTRITION, SKIN INTEGRITY, PRESSURE ULCER PREVENTION, AND PATIENT/CAREGIVER ABILITY TO SUPPORT ORDERED CARE. SKILLED NURSE WILL INSTRUCT ON DISEASE PROCESS, MED MGMT., FALL PREVENTION AND SAFETY, INFECTION CONTROL AND PREVENTION, WARNING SIGNS, ADDRESS RESULTS OUTSIDE OF ORDERED PARAMETERS LISTED ON CARE PLAN, AND COORDINATE DISCHARGE WITH THE TREATING PROVIDER. MAY ACCEPT ORDERS FROM THE FOLLOWING PROVIDER(S) WHO WILL BE CONSULTING ON THE CERTIFIED CARE PLAN: DR SAEED [place], [facility] AND ANYONE COVERING IN THEIR ABSENCE. [code = EACH ORDERED IN-HOME OR TELEHEALTH VISIT, THE SKILLED NURSE WILL CONDUCT A COMPREHENSIVE ASSESSMENT INCLUDING VITAL SIGNS, PAIN, SAFETY, MENTAL/COGNITIVE/PSYCHOSOCIAL STATUS, MED MANAGEMENT, NUTRITION, SKIN INTEGRITY, PRESSURE ULCER PREVENTION, AND PATIENT/CAREGIVER ABILITY TO SUPPORT ORDERED CARE. SKILLED NURSE WILL INSTRUCT ON DISEASE PROCESS, MED MGMT., FALL PREVENTION AND SAFETY, INFECTION CONTROL AND PREVENTION, WARNING SIGNS, ADDRESS RESULTS OUTSIDE OF ORDERED PARAMETERS LISTED ON CARE PLAN, AND COORDINATE DISCHARGE WITH THE TREATING PROVIDER. MAY ACCEPT ORDERS FROM THE FOLLOWING PROVIDER(S) WHO WILL BE CONSULTING ON THE CERTIFIED CARE PLAN: DR SAEED [place], [facility] AND ANYONE COVERING IN THEIR ABSENCE.] Future Scheduled Test HOME HEALT H NURSE WILL INSTRUCT PATIENT/CAREGIVER ON TYPE 2 DIABETES DISEASE PROCESS, HOW TO CREATE A DIABETIC TOOLKIT TO MANAGE INVENTORY OF SUPPLIES, HOW TO PLAN FOR A SICK-DAY, AND WARNING SIGNS WHEN THE PATIENT EXPERIENCES LOW BLOOD SUGAR. [code = HOME HEALTH NURSE WILL INSTRUCT PATIENT/CAREGIVER ON TYPE 2 DIABETES DISEASE PROCESS, HOW TO CREATE A DIABETIC TOOLKIT TO MANAGE INVENTORY OF SUPPLIES, HOW TO PLAN FOR A SICK-DAY, AND WARNING SIGNS WHEN THE PATIENT EXPERIENCES LOW BLOOD SUGAR.] Future Scheduled Test HOME HEALT H NURSE WILL ASSESS FOR COMPLICATIONS RELATED TO ANTICOAGULATION/ANTIPLATELET USE AND INSTRUCT PATIENT/CAREGIVER ABOUT PRECAUTIONS TO FOLLOW AND SIGNS/SYMPTOMS TO REPORT. [code = HOME HEALTH NURSE WILL ASSESS FOR COMPLICATIONS RELATED TO ANTICOAGULATION/ANTIPLATELET USE AND INSTRUCT PATIENT/CAREGIVER ABOUT PRECAUTIONS TO FOLLOW AND SIGNS/SYMPTOMS TO REPORT.] Future Scheduled Test HOME HEALT H NURSE WILL INSTRUCT THE PATIENT/CAREGIVER ABOUT DEMENTIA INCLUDING CHARACTERISTICS OF DISEASE PROCESS, POSSIBLE COMPLICATIONS, AND SAFETY MEASURES ASSOCIATED WITH ALTERED MENTAL STATUS. [code = HOME HEALTH NURSE WILL INSTRUCT THE PATIENT/CAREGIVER ABOUT DEMENTIA INCLUDING CHARACTERISTICS OF DISEASE PROCESS, POSSIBLE COMPLICATIONS, AND SAFETY MEASURES ASSOCIATED WITH ALTERED MENTAL STATUS.] Future Scheduled Test HOME HEALT H NURSE TO INSTRUCT ON BENIGN PROSTATIC HYPEROPLASIA ITS COMPLICATIONS, AND WHEN TO CONTACT THE AGENCY, PHYSICIAN OR 911 [code = HOME HEALTH NURSE TO INSTRUCT ON BENIGN PROSTATIC HYPEROPLASIA ITS COMPLICATIONS, AND WHEN TO CONTACT THE AGENCY, PHYSICIAN OR 911] Future Scheduled Test SKILLED NU RSE TO INSTRUCT ON URINARY INCONTINENCE INCLUDING CAUSES AND MANAGEMENT STRATEGIES. [code = SKILLED NURSE TO INSTRUCT ON URINARY INCONTINENCE INCLUDING CAUSES AND MANAGEMENT STRATEGIES.] Goal 2024-08-21 Patient Goal - S OC 06/25/24: TO HEAL MY WOUND Goal 2024-10-19 Patient Goal - S OC 06/25/24: TO HEAL MY WOUND RECERT 08/21/23: TO HEAL WOUND Goal Patient Goal - S OC 06/25/24: TO HEAL MY WOUND RECERT 08/21/23: TO HEAL WOUND RECERT 10/19/24: TO STAY IN MY OWN HOME Goal Provider Goal - PATIENT/CAREGIVER WILL INDEPENDENTLY DEMONSTRATE HOW TO CHECK HIS/HER OWN BP AND VERBALIZE WHAT STRATEGIES CAN ASSIST TO CONTROL BLOOD PRESSURE. Goal Provider Goal - A PLAN OF CARE WILL BE ESTABLISHED THAT MEETS ALL PATIENT'S ASSISTED NEEDS AND COUNTER SIGNED BY PHYSICIAN. Goal Provider Goal - PATIENT WILL BE FREE OF FALLS AND HOSPITALIZATIONS THROUGHOUT EPISODE OF CARE. PATIENT/CAREGIVER WILL UNDERSTAND AND ADHERE TO ORDERED DIET. PATIENT/CAREGIVER WILL INDEPENDENTLY MANAGE MEDICATIONS, UNDERSTAND ANY CHANGES, SIDE EFFECTS TO REPORT BY EOE. PATIENT WILL BE FREE OF INFECTION AND UNDERSTAND MEASURES OF PREVENTION. PATIENT/CAREGIVER WILL COLLABORATE WITH SKILLED NURSE TO DEVELOP POC AT SOC AND ON AN ONGOING BASIS UPDATES ARE NEEDED. UNDERSTAND PROGRESS MADE/DISCHARGE PLANNING. ADDITIONAL ORDERS WILL BE RECEIVED FROM ALTERNATE PHYSICIANS IN A TIMELY MANNER. Goal Provider Goal - PATIENT/CAREGIVER WILL VERBALIZE UNDERSTANDING OF TYPE 2 DIABETES AND THE IMPORTANCE OF MANAGING THE BLOOD SUGAR WITHIN THE EXPECTED RANGE. PATIENT/CAREGIVER WILL ESTABLISH A DIABETIC TOOLKIT AND A SICK-DAY PLAN TO PREPARE FOR POTENTIAL CHANGES WITH BLOOD SUGARS RANGES. PATIENT/CAREGIVER WILL VERBALIZE WARNING SIGNS OF LOW BLOOD SUGAR AND WHAT ACTIONS TO TAKE. Goal Provider Goal - PATIENT/CAREGIVER WILL VERBALIZE UNDERSTANDING OF ANTICOAGULATION/ANTIPLATELET COMPLICATIONS TO REPORT AND PRECAUTIONS TO FOLLOW BY END OF HOME HEALTH SERVICES. Goal Provider Goal - PATIENT/CAREGIVER WILL DEMONSTRATE REDUCED SUBJECTIVE LEVELS OF STRESS AND DEMONSTRATE INCREASED SAFETY IN THE HOME WITH MAXIMAL FUNCTIONAL TASK ENGAGEMENT BY END OF EPISODE. Goal Provider Goal - PATIENT/CAREGIVER WILL INDEPENDENTLY VERBALIZE THE DEFINITIONS OF BPH, COMPLICATIONS, AND TREATMENTS OF THE DISEASE BY. PATIENT/CAREGIVER WILL INDEPENDENTLY VERBALIZE SYMPTOMS TO REPORT TO THE PHYSICIAN BY THE END OF HOME HEALTH SERVICES. Goal Provider Goal - PATIENT/CAREGIVER WILL INDEPENDENTLY DEMONSTRATE STRATEGIES TO MANAGE INCONTINENCE AND PROBLEMS THAT CAN DEVELOP FROM BEING INCONTINENT. Progress Notes Progress Notes <paragraph>[Visit Date: 2024 by VASYL MERCHANT LICENSED PRACTICAL NURSE]:</paragraph><paragraph>PTNT SITTING IN RECLINER WITH DAUGHTER PRESENT FOR VISIT. PTNT BEING SEEN FOR HYPERTENSION MANAGEMENT. PTNT DOES HAVE ACHING KNEE PAIN WHICH IS RELIEVED WITH REST AND REPOSITIONING. SN DONNED GLOVES AND ASSESSED BLE. NO OPEN AREAS NOTED THAT THIS TIME BUT DOES HAVE A HIGH POTENTIAL FOR OPEN AREAS. PTNT CONTINUES TO HAVE EDEMA TO BLE AND WEARS TUBIGRIP. INSTRUCETD ON KEEPING LEGS CLEAN AND DRY, BEGIN USING LYMPH PUMPS BID 45-60MIN, APPLY QUALITY MINERAL OIL LOTION AND KEEP THE DOG AWAY FROM SORES. NOTIFY WITH ANY CHANGES IN CONDITION OR OPEN AREAS. VS WNL, LUNGS CLEAR, DENIES CHEST PAIN, DIZZINESS, SOB, FEVERS, FALLS, HEADACHES, MEDICATION CHANGES. PTNT DENIES ANY S/S OF HYPERTENSION. INSTRUCETD ON GOOD SKIN CARE, FALL AND SAFETY PREVENTION, PAIN MANAGEMENT, PU PREVENTION AND ECP. PTNT AND DAUGHTER VOICED UNDERSTANDING TO ALL TOPICS. PATIENT HAD LABS DRAWN LAST WEEK 01/[address] HARRIS, STATES ALL LOOK GOOD. WAS TOLD THAT HE IS 'PRE-DIABETIC', [facility] DOES NOT KNOW WHICH LAB THEY ARE TALKING ABOUT IF IT WAS A GLUCOSE OR HGA1C. SHE WILL CALL AND FIND OUT. TC TO DR HARRIS OFFICE TO INQUIRE. LEFT MESSAGE FOR CALL BACK.</paragraph> Encounters Start Date/Time End Date/Time Encounter Type Admission Type Attending Clinicians Care Facility Care Department Encounter ID Discharge Date Discharge Status Discharge Condition Discharge Reason Percent Goals Met 2024-10-23 00:00:00 2024-12-21 00:00:00 Outpatient RECERTIFIC ATION [facility] [id number] 65.00
--- OUTSIDE RECORDS SUMMARY | 2024-12-08 16:33 | XMS_ITS ---
Author Organization [facility] Address [address] [place], [place] [id number] Care Team Providers Care Embedded Systems Designer Name Role Phone JUAN ALBERTO Fair Unavailable [phone] Cristobal Bryant Unavailable Unavailable TORIE ROB Unavailable [phone] REASON FOR VISIT *General care Medications Medication SIG (Take, Route, Frequency, Duration) Notes Start Date End Date Status ergocalciferol 1.25 MG Oral Capsule ORAL ergocalciferol 1.25 MG Oral CapsuleOriginal Medicationergocalciferol 1.25 MG Oral Capsule *Reorder from [employer] for eRx and Interaction Alerts* 0 Unknown aspirin 81 MG Delayed Release Oral Tablet ORAL aspirin 81 MG Delayed Release Oral TabletOriginal Medicationaspirin 81 MG Delayed Release Oral Tablet *Reorder from [employer] for eRx and Interaction Alerts* 0 Unknown Ammonium Lactate 12 % 1 application Externally Twice a day 3 Active terazosin 10 MG Oral Capsule ORAL terazosin 10 MG Oral CapsuleOriginal Medicationterazosin 10 MG Oral Capsule *Reorder from [employer] for eRx and Interaction Alerts* 0 Unknown Melatonin 3 MG Oral Capsule ORAL melatonin 3 MG Oral CapsuleOriginal Medicationmelatonin 3 MG Oral Capsule *Reorder from [employer] for eRx and Interaction Alerts* 0 Unknown Encounters Encounter Location Date Provider Diagnosis [address] [id number] 11/19/2024 TORIE ROB Assessments Encounter Date Diagnosis (ICD Code) Assessment Notes Treatment Notes Treatment Clinical Notes Section Notes 11/19/2024 Other Plan Of Treatment No Information Progress Notes * MANUELA FERRARI EDOB:1940 (84 yo M)Acc No.[id number]:11/19/2024 Patient: MANUELA GABRIEL Provider: Arun ROB :1940 A ge:84 Y S ex:Male Date:11/19/2024 Address:[address] [place] [address] Subjective: * Chief Complaints: * 1 . *General care. * Medical History: * Medications: T aking Ammonium Lactate 12 % Lotion 1 application Externally Twice a day , Unknown Melatonin 3 MG Oral Capsule ORAL , Notes to Pharmacist: melatonin 3 MG Oral CapsuleOriginal Medicationmelatonin 3 MG Oral Capsule *Reorder from [facility] for eRx and Interaction Alerts*, Unknown aspirin 81 MG Delayed Release Oral Tablet ORAL , Notes to Pharmacist: aspirin 81 MG Delayed Release Oral TabletOriginal Medicationaspirin 81 MG Delayed Release Oral Tablet *Reorder from [facility] for eRx and Interaction Alerts*, Unknown ergocalciferol 1.25 MG Oral Capsule ORAL , Notes to Pharmacist: ergocalciferol 1.25 MG Oral CapsuleOriginal Medicationergocalciferol 1.25 MG Oral Capsule *Reorder from [facility] for eRx and Interaction Alerts*, Unknown terazosin 10 MG Oral Capsule ORAL , Notes to Pharmacist: terazosin 10 MG Oral CapsuleOriginal Medicationterazosin 10 MG Oral Capsule *Reorder from [facility] for eRx and Interaction Alerts* Objective: * Vitals: Assessment: Plan: * Treatment: * Billing Information: * Visit Code: * Procedure Codes: * Electronic signature of BUBBA ROB DPM on 12/08/2024 at 04:32 PM CDT Sign off status: Pending * Provider: Arun ROB Date: 0 11/19/2024 Generated for [employer] ng/Fanikhilg/eTransmitting on: 0 12/08/2024 04:32 PM CDT History and Physical Notes * Examination Category Sub-Category Detail Notes Category Not es Vascular Posterior tibial pulse:
--- OUTSIDE RECORDS SUMMARY | 2024-12-08 16:33 | XMS_ITS | Clinical Summary ---
Author Organization Unknown Care Team Providers Care City Planning Engineer Name Role Phone SAEED HARRIS Unavailable Unavailable GIGI REGISTERED NURSE, JOSE M Unavailable Unavailable [place] PHYSICAL THERAPIST, JAIME Unavailabl e Unavailable [place] CNP, HERBERT Unavail able Unavailable LILLY SOL COUNSELOR, ARAM Unavailable Unavailable BEBETO REGISTERED NURSE, BONNY Unavailable Unavailable Payers Payer Name Policy Type Policy Number Effective Date Expira tion Date MEDICARE [employer] - EPISODIC [id number] Problems Condition Name Condition Details Condition Category [...] ALLERGIC RHINITIS, UNSPECIFIED Active 07-08 00:00: 00 LONGTERM (CURRENT) USE OF ANTICOAGULAN TS Active 07-08 [...] 180 mg tablet 2023-07 00:00: 00 Yes [id number] ALLERGIES 1 tablet ONCE DAILY 1 tablet ONCE DAILY (route: oral) Med Classific ation: Respirato ry Therapy Agents cefdinir 300 mg capsule 2023-07 00:00: 00 07-01 23:59 :00 No [id number] CELLULITIS TO LEFT LOWER EXTREMITY 1 capsule TWICE DAILY 1 capsule TWICE DAILY (route: oral) Med Classific ation: Anti-Infe ctive Agents docusate sodium 100 mg capsule 2023-07 00:00: 00 Yes [id number] CONSTIPATIO N 2 capsule TWICE DAILY 2 capsule TWICE DAILY (route: oral) Med Classific ation: Gastroint estinal Therapy Agents doxycycline monohydrate 100 mg capsule 2023-07 00:00: 00 07-01 23:59 :00 No [id number] CELLULITIS TO LEFT LOWER LEG 1 capsule TWICE DAILY 1 capsule TWICE DAILY (route: oral) Med Classific ation: Anti-Infe ctive Agents duloxetine 20 mg capsule,del ayed release 2023-07 00:00: 00 Yes [id number] LEG PAIN 1 capsule ONCE DAILY 1 capsule ONCE DAILY (route: oral) Med Classific ation: Central Nervous System Agents Eliquis 2.5 mg tablet 2023-07 00:00: 00 Yes [id number] BLOOD CLOT PREVENTION 1 tablet TWICE DAILY 1 tablet TWICE DAILY (route: oral) Med Classific ation: Hematolog ical Agents finasteride 5 mg tablet 2023-07 00:00: 00 Yes [id number] URINARY FLOW 1 tablet ONCE DAILY 1 tablet ONCE DAILY (route: oral) Med Classific ation: Genitouri nary Therapy Fish Oil 1,000 mg (120 mg-180 mg) capsule 2023-07 00:00: 00 Yes [id number] TRIGLYCERID E LOWER AGENT 1 capsule TWICE DAILY 1 capsule TWICE DAILY (route: oral) Med Classific ation: Cardiovas cular Therapy Agents furosemide 40 mg tablet 2023-07 00:00: 00 Yes [id number] FLUID RETENTION Per instruc tions TWICE DAILY Per instructio ns TWICE DAILY (route: oral) Med Classific ation: Cardiovas cular Therapy Agents gabapentin 100 mg capsule 2023-07 00:00: 00 Yes [id number] LEG PAIN Per instruc tions TWICE DAILY Per instructio ns TWICE DAILY (route: oral) Med Classific ation: Central Nervous System Agents I-Caps 280 mg-10 mg-2 mg capsule 2023-07 00:00: 00 Yes [id number] EYE HEALTH 1 capsule ONCE DAILY 1 capsule ONCE DAILY (route: oral) Med Classific ation: Electroly te Balance-N utritiona l Products latanoprost 0.005 % eye drops 2023-07 00:00: 00 Yes [id number] EYE PRESSURE 1 drops AT BEDTIME 1 drops AT BEDTIME (route: ophthalmic (eye)) Med Classific ation: Ophthalmi c Agents mecobalamin (vitamin B12) 1,000 mcg disintegrat ing tablet,subl ingual 2023-07 00:00: 00 Yes [id number] SUPPLEMENT 1 tablet ONCE DAILY 1 tablet ONCE DAILY (route: sublingual ) Med Classific ation: Electroly te Balance-N utritiona l Products melatonin 5 mg tablet 2023-07 00:00: 00 Yes [id number] DEMENTIA/SL EEP 1 tablet AT BEDTIME 1 tablet AT BEDTIME (route: oral) Med Classific ation: Central Nervous System Agents memantine 10 mg tablet 2023-07 00:00: 00 Yes [id number] DEMENTIA 1 tablet TWICE DAILY 1 tablet TWICE DAILY (route: oral) Med Classific ation: Cognitive Disorder Therapy montelukast 10 mg tablet 2023-07 00:00: 00 Yes [id number] ALLERGIES 1 tablet ONCE DAILY 1 tablet ONCE DAILY (route: oral) Med Classific ation: Respirato ry Therapy Agents spironolact one 50 mg tablet 2023-07 00:00: 00 Yes [id number] HYPERTENSIO N 1 tablet ONCE DAILY 1 tablet ONCE DAILY (route: oral) Med Classific ation: Cardiovas cular Therapy Agents Vitamin D3 50 mcg (2,000 unit) capsule 2023-07 00:00: 00 Yes [id number] SUPPLEMENT/ VITAMIN D DEF 1 capsule ONCE DAILY 1 capsule ONCE DAILY (route: oral) Med Classific ation: Electroly te Balance-N utritiona l Products silver sulfadiazin e 1 % topical cream 2023-07 00:00: 00 10-19 00:00 :00 No [id number] CELLULITIS WOUND TO LLE Per instruc tions ONCE DAILY Per instructio ns ONCE DAILY (route: topical) Med Classific ation: Dermatolo gical doxycycline monohydrate 100 mg capsule 08-24 00:00: 00 09-07 23:59 :00 No [id number] POSSIBLE INFECTION IN LEG WOUND 1 capsule [...] THE CERTIFIED CARE PLAN: DR SAEED [place], [facility] AND ANYONE COVERING IN THEIR ABSENCE. [code [...] THE CERTIFIED CARE PLAN: DR SAEED [place], [facility] AND ANYONE COVERING IN THEIR ABSENCE.] Future [...] WILL BE ESTABLISHED THAT MEETS ALL PATIENT'S LONG TERM NEEDS AND COUNTER SIGNED BY PHYSICIAN. Goal [...] 00:00:00 Outpatient RECERTIFIC ATION JOSE M YU [facility] [id number] 65.00
[2024-12-08 16:46] LABS: Hematocrit 44.8 % (37.0-46.0); Mean Corpuscular HGB Conc 33.5 g/dL (32-36); Mean Corpuscular Volume 92.6 fL (78.0-102.0); Mean Platelet Volume 9.6 fl (8.7-11.0); Platelet Count Result 305 K/mm3 (150-420); Red Blood Count 4.84 M/mm3 (4.70-6.10); Red Cell Distribution Width 12.8 % (11.6-14.4); White Blood Count 11.8 K/mm3 (4.8-10.8)
[2024-12-08 18:20] LABS: Albumin Level 4.5 g/dL (3.5-5.1); Anion Gap 10 mmol/L (4-12); Blood Urea Nitrogen 30 mg/dL (9-20); Carbon Dioxide 29 mmol/L (22-30); Chloride 97 mmol/L (98-107); Estimated Glomerular Filt Rate 44; Glucose 134 mg/dL (65-110); Osmolality Calculated 290 mOsm/kg (285-295); Phosphorus 4.8 mg/dL (2.5-4.5); Potassium 4.5 mmol/L (3.4-5.0); Sodium 136 mmol/L (137-145)
[2024-12-09 14:09] LABS: Parathyroid Intact 48 pg/mL (16-77)
== END 2024-12-08 16:30 | disposition home or self-care (01) ==
LOC: CHSLAB 16:30
PROVIDERS: PCP Internal Medicine; Visit Provider Internal Medicine Nephrology
DX: N18.31 Chronic kidney disease, stage 3a (principal); E21.1 Secondary hyperparathyroidism, not elsewhere classified
CPT/HCPCS: 36415; 80069; 82306; 83970; 85027

== ENCOUNTER 2024-12-12 15:53 | Outpatient (NON) | payer MEDICARE, SELFPAY ==
--- OUTSIDE RECORDS SUMMARY | 2024-12-12 15:57 | XMS_ITS | Referral Summary ---
Author Organization [facility] Address [address] [place] [address] Care Team Providers Care Safety Clothing And Equipment Developer Name Role Phone Bryant Jain MD Primary Care Provider [phone] Encounters Date Type Department Care Team Description 12/10/2024 Orders Only [place] Fax Machine Repairer [id number] [facility] [address] [place] [address] Twila Escobedo MA Paroxysmal atrial fibrillation (HCC) (Primary Dx); Cardiac pacemaker in situ; Pacemaker reprogramming/check 12/03/2024 Telephone [place] Fax Machine Repairer at [address] [place] [address] Opal Lemons MA from Last [...] on file 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
--- OUTSIDE RECORDS SUMMARY | 2024-12-12 15:57 | XMS_ITS ---
Author Organization [facility] Address [address] [place], [place] [id number] Care Team Providers Care Slab Miller Operator Name Role Phone JUAN ALBERTO Fair Unavailable [phone] Bryant Jain Unavailable Unavailable EVIE GALLEGOS Unavailable [phone] REASON FOR VISIT *General care Encounters Encounter Location Date Provider Diagnosis [address] [id number] 08/13/2024 EVIE GALLEGOS Plan Of Treatment No Information Progress Notes * MANUELA FERRARI EDOB:1940 (84 yo M)Acc No.[id number]:08/13/2024 Patient: MANUELA GABRIEL Provider: Meghan Gallegos DPM :1940 A ge:84 Y S ex:Male Date:08/13/2024 Address:[address] [place], [place] [id number] Subjective: * Chief Complaints: * 1 . *General care. * Medical History: Objective: * Vitals: Assessment: Plan: * Treatment: * Billing Information: * Visit Code: * Procedure Codes: * Electronic signature of EVIE GALLEGOS DPM on 12/12/2024 at 03:57 PM CDT Sign off status: Pending * Provider: Meghan Gallegos DPM Date: 0 08/13/2024 Generated for [employer] parr/Juan Carlos/eTransmitting on: 0 12/12/2024 03:57 PM CDT
--- OUTSIDE RECORDS SUMMARY | 2024-12-12 15:57 | XMS_ITS | Patient Health Record ---
Author Organization [facility] Address [address] [place], [place] [address] Care Team Providers Care Hazardous Material Specialist Name Role Phone JUAN ALBERTO Fair Unavailable [phone] CristobalNainBryant Unavailable Unavailable DESTINNikole EVIE Unavailable [phone] JUAN TONG Unavailable [phone] TORIE ROB Unavailable [phone] Allergies No Known Allergies Reason For Referral No Information Medications Medication SIG (Take, Route, Frequency, Duration) Notes Start Date End Date Status ergocalciferol 1.25 MG Oral Capsule ORAL ergocalciferol 1.25 MG Oral CapsuleOriginal Medicationergocalciferol 1.25 MG Oral Capsule *Reorder from [employer] for eRx and Interaction Alerts* 0 Unknown aspirin 81 MG Delayed Release Oral Tablet ORAL aspirin 81 MG Delayed Release Oral TabletOriginal Medicationaspirin 81 MG Delayed Release Oral Tablet *Reorder from [employer] for eRx and Interaction Alerts* 0 Unknown Ammonium Lactate 12 % 1 application Externally Twice a day 3 Active terazosin 10 MG Oral Capsule ORAL terazosin 10 MG Oral CapsuleOriginal Medicationterazosin 10 MG Oral Capsule *Reorder from [employer] for eRx and Interaction Alerts* 0 Unknown Melatonin 3 MG Oral Capsule ORAL melatonin 3 MG Oral CapsuleOriginal Medicationmelatonin 3 MG Oral Capsule *Reorder from [facility] for eRx and Interaction Alerts* 0 Unknown Immunizations Vaccine Route Administration Date Status Comme nts Influenza, high dose seasonal Unknown 04/15/2023 Admini stered Vital Signs Height-cm 177.80 cm 01/30/2024 Weight-kg 86.18 kg 01/30/2024 Height 70.00 in 01/30/2024 Weight 190 lbs 01/30/2024 BMI 27.26 kg/m2 01/30/2024 Encounters Encounter Location Date Provider Diagnosis [address] [id number] 01/30/2024 JUAN TONG Tinea unguium B35.1 ; Pain in right toe(s) M79.674 ; Pain in left toe(s) M79.675 ; 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, bilateral legs I70.203 and Xerosis cutis L85.[address] [address] [address] [place], [place] [id number] 04/09/2024 JUAN TONG Tinea unguium B35.1 ; Pain in right toe(s) M79.674 ; Pain in left toe(s) M79.675 ; 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, bilateral legs I70.203 and Xerosis cutis L85.[address] [id number] 06/11/2024 JUAN TONG Tinea unguium B35.1 ; Pain in right toe(s) M79.674 ; Pain in left toe(s) M79.675 ; 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, bilateral legs I70.203 and Xerosis cutis L85.[address] [id number] 08/27/2024 EVIEBEREKET GALLEGOS Tinea unguium B35.1 ; Pain in right toe(s) M79.674 ; Pain in left toe(s) M79.675 and 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, bilateral [...] (ICD-10 - M79.675) 01/30/2024 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, 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) Patient educated on risks and aggravating factors of PVD, including conservative treatment options such as a diet and exercise regimen to aid in slowing progression of vascular disease 04/09/2024 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, 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) Patient educated on risks and aggravating factors of PVD, including conservative treatment options such as a diet and exercise regimen to aid in slowing progression of vascular disease 06/11/2024 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, 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) Patient educated on risks and aggravating factors of PVD, including conservative treatment options such as a diet and exercise regimen to aid in slowing progression of vascular disease 08/27/2024 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
--- OUTSIDE RECORDS SUMMARY | 2024-12-12 15:57 | XMS_ITS | Clinical Summary ---
Author Organization [facility] Address [address] [place] [address] Care Team Providers Care Pet Sitting Name Role Phone Bryant Jain MD Primary Care Provider [phone] Daphne Auguste MD Unavailable [phone] Source Comments [facility],non-owned Affiliates and Associated Physician Practices is amultiple site organization consisting of ambulatory clinics and hospital sitesin [place], [place], [place] and [place]. This disclosure is being madepursuant to the Care Everywhere program and may not contain all information available regarding this patient. Last updated 18.[facility] Allergies Active Allergy Reactions Criticality Noted Date [...] tablet by mouth 2 times daily Active nsskd-8-[id number] ethyl esters (LOVAZA) 1 g capsule Take [...] Description 10/28/2024 8:00 AM CDT Clinical Support [facility] [address] [address] Daphne Auguste MD S/P placement of cardiac pacemaker ; Complete heart block (HCC) 10/28/2024 Travel 09/15/2024 9:00 AM CDT Clinical Support [facility] [address], [address] [address] Daphne Auguste MD Cardiac pacemaker in situ [...] 04/03/2023 10:45 AM CDT Plan of Treatment Health Maintenance Due Date Last Done Comments DTAP/TDAP/TD VACCINES (1 - Tdap) 1960 PNEUMOCOCCAL VACCINE 50+ (1 of 1 - PCV) 1991 ZOSTER VACCINE (1 of 2) 1991 Respiratory Syncytial Virus (RSV) Vaccine Pt: or over 60 yrs (1 - 1-dose 75+ series) 2016 COVID-19 VACCINE ( - season) 2024 DEPRESSION SCREENING 07/08/2024 INFLUENZA [...] 7:15 PM 11/10/2021 2:59 PM Care Teams Pet Sitting Relationship Specialty Start Date End Date Bryant Jain MD [address] [place] [address] PCP - General Internal Medicine 11/21/21 [place] [id number] [address] Cardiovascular Disease 12/19/21
--- OUTSIDE RECORDS SUMMARY | 2024-12-12 15:57 | XMS_ITS | Encounter Summary ---
Author Organization [facility] Address [address] [place] [address] Care Team Providers Care Steel Tester Name Role Phone Bryant Jain MD Primary Care Provider [phone] Reason for Referral * Cardiology (Routine) - Authorized Specialty Diagnoses / Procedures Referred By Contac t Referred To Contact Diagnoses Paroxysmal atrial fibrillation (HCC) Cardiac pacemaker in situ Procedures DEVICE CHECK - REMOTE Sonido Spence MD [address] [place] [address] [address] [place] [address] Phone: tel: fax: Referral ID Status Reason Start Date Expiration Date V isits Requested Visits Authorized [id number] Authorized 12/10/2024 06/11/2026 1 1 * Cardiology (Routine) - Authorized Specialty Diagnoses / Procedures Referred By Contac t Referred To Contact Diagnoses Paroxysmal atrial fibrillation (HCC) Cardiac pacemaker in situ Procedures DEVICE CHECK - REMOTE Sonido Spence MD [address] [place] [address] [address] [place] [address] Phone: tel: fax: Referral ID Status Reason Start Date Expiration Date V isits Requested Visits Authorized [id number] Authorized 12/10/2024 06/11/2026 1 1 * Cardiology (Routine) - Authorized Specialty Diagnoses / Procedures Referred By Contac t Referred To Contact Diagnoses Paroxysmal atrial fibrillation (HCC) Cardiac pacemaker in situ Procedures DEVICE CHECK - REMOTE Sonido Spence MD [address] [place] [address] Phone: tel: fax: [facility] Referral ID Status Reason Start Date Expiration Date V isits Requested Visits Authorized [id number] Authorized 12/10/2024 06/11/2026 1 1 * Cardiology (Routine) - Authorized Specialty Diagnoses / Procedures Referred By Contac t Referred To Contact Diagnoses Paroxysmal atrial fibrillation (HCC) Cardiac pacemaker in situ Procedures DEVICE CHECK - IN OFFICE Sonido Spence MD [address] [place] [address] Phone: tel: fax: Referral ID Status Reason Start Date Expiration Date V isits Requested Visits Authorized [id number] Authorized 12/10/2024 01/09/2026 1 1 Encounter Details Date Type Department Care Team (Late st Contact Info) Description 12/10/2024 Orders Only [place] Enrollment Management Coordinator [address] [place] [phone] Twila Escobedo MA Paroxysmal atrial fibrillation (HCC) (Primary Dx); Cardiac pacemaker in situ; Pacemaker reprogramming/check Social History Tobacco Use Types Packs/Day Years Used Date Smoking Tobacco: Never Personal Safety Answer Date Recorded Getting School Help Needed Not on file 03/05 Sex and Gender Information Value Date Recorded Sex Assigned at Not on file 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 Gender Identity Not on file Sexual Orientation Not on file documented as of this encounter Plan of Treatment Scheduled Orders Name Type Priority Associated Diagnoses Orde r Schedule DEVICE CHECK - IN OFFICE Cardiac Services Routine Paroxysmal atrial fibrillation (HCC) Cardiac pacemaker in situ Expected: 12/10/2025 (Approximate), Expires: 06/11/2026 DEVICE CHECK - REMOTE Cardiac Services Routine Paroxysmal atrial fibrillation (HCC) Cardiac pacemaker in situ Expected: 03/15/2025 (Approximate), Expires: 12/10/2025 DEVICE CHECK - REMOTE Cardiac Services Routine Paroxysmal atrial fibrillation (HCC) Cardiac pacemaker in situ Expected: 06/14/2025 (Approximate), Expires: 12/10/2025 DEVICE CHECK - REMOTE Cardiac Services Routine Paroxysmal atrial fibrillation (HCC) Cardiac pacemaker in situ Expected: 09/13/2025 (Approximate), Expires: 12/10/2025 documented as of this encounter Visit Diagnoses Diagnosis Paroxysmal atrial fibrillation (HCC)- Primary Atrial fibrillation Cardiac pacemaker in situ Pacemaker reprogramming/check Fitting and adjustment of cardiac pacemaker documented in this encounter Care Teams Steel Tester Relationship Specialty Start Date End Date Bryant Jain MD PCP - General Internal Medicine 03/05/24 documented as of this encounter
--- OUTSIDE RECORDS SUMMARY | 2024-12-12 15:57 | XMS_ITS | Clinical Summary ---
Author Organization Unknown Care Team Providers Care Special Events Assistant Name Role Phone SAEED HARRIS Unavailable Unavailable GIGI REGISTERED NURSEJOSE M Unavailable Unavailable Payers Payer Name Policy Type Policy Number Effective Date Expira tion Date MEDICARE [employer] - EPISODIC [id number] Problems Condition Name Condition Details Condition Category [...] ALLERGIC RHINITIS, UNSPECIFIED Active 07-08 00:00: 00 [facility] (CURRENT) USE OF ANTICOAGULAN TS Active 07-08 00:00: 00 HISTORY OF FALLING Active 07-08 00:00: 00 Allergies, Adverse Reactions, Alerts Allergy Name Allergy Type Status Severity Reaction(s) Onset Date Inactive Date Treating Clinician Comments DONEPEZIL Propensity to adverse reactions Active 2023-07 217 10:27: 24 Medications Ordered Medication Name Filled Medication Name Start Date Stop Date Current Medication? Ordering Clinician Indication Dosage Frequency Signature (SIG) Comments Components Allergy Relief (fexofenadi ne) 180 mg tablet 2023-07 00:00: 00 Yes [id number] ALLERGIES 1 tablet ONCE DAILY 1 tablet ONCE DAILY (route: oral) Med Classific ation: Respirato ry Therapy Agents cefdinir 300 mg capsule 2023-07 00:00: 00 07-01 23:59 :00 No [id number] CELLULITIS TO LEFT LOWER EXTREMITY 1 capsule TWICE DAILY 1 capsule TWICE DAILY (route: oral) Med Classific ation: Anti-Infe ctive Agents docusate sodium 100 mg capsule 2023-07 00:00: 00 Yes [id number] CONSTIPATIO N 2 capsule TWICE DAILY 2 capsule TWICE DAILY (route: oral) Med Classific ation: Gastroint estinal Therapy Agents doxycycline monohydrate 100 mg capsule 2023-07 00:00: 00 07-01 23:59 :00 No [id number] CELLULITIS TO LEFT LOWER LEG 1 capsule TWICE DAILY 1 capsule TWICE DAILY (route: oral) Med Classific ation: Anti-Infe ctive Agents duloxetine 20 mg capsule,del ayed release 2023-07 00:00: 00 Yes [id number] LEG PAIN 1 capsule ONCE DAILY 1 capsule ONCE DAILY (route: oral) Med Classific ation: Central Nervous System Agents Eliquis 2.5 mg tablet 2023-07 00:00: 00 Yes [id number] BLOOD CLOT PREVENTION 1 tablet TWICE DAILY 1 tablet TWICE DAILY (route: oral) Med Classific ation: Hematolog ical Agents finasteride 5 mg tablet 2023-07 00:00: 00 Yes [id number] URINARY FLOW 1 tablet ONCE DAILY 1 tablet ONCE DAILY (route: oral) Med Classific ation: Genitouri nary Therapy Fish Oil 1,000 mg (120 mg-180 mg) capsule 2023-07 00:00: 00 Yes [id number] TRIGLYCERID E LOWER AGENT 1 capsule TWICE DAILY 1 capsule TWICE DAILY (route: oral) Med Classific ation: Cardiovas cular Therapy Agents furosemide 40 mg tablet 2023-07 00:00: 00 Yes [id number] FLUID RETENTION Per instruc tions TWICE DAILY Per instructio ns TWICE DAILY (route: oral) Med Classific ation: Cardiovas cular Therapy Agents gabapentin 100 mg capsule 2023-07 00:00: 00 Yes [id number] LEG PAIN Per instruc tions TWICE DAILY Per instructio ns TWICE DAILY (route: oral) Med Classific ation: Central Nervous System Agents I-Caps 280 mg-10 mg-2 mg capsule 2023-07 00:00: 00 Yes [id number] EYE HEALTH 1 capsule ONCE DAILY 1 capsule ONCE DAILY (route: oral) Med Classific ation: Electroly te Balance-N utritiona l Products latanoprost 0.005 % eye drops 2023-07 00:00: 00 Yes [id number] EYE PRESSURE 1 drops AT BEDTIME 1 drops AT BEDTIME (route: ophthalmic (eye)) Med Classific ation: Ophthalmi c Agents mecobalamin (vitamin B12) 1,000 mcg disintegrat ing tablet,subl ingual 2023-07 00:00: 00 Yes [id number] SUPPLEMENT 1 tablet ONCE DAILY 1 tablet ONCE DAILY (route: sublingual ) Med Classific ation: Electroly te Balance-N utritiona l Products melatonin 5 mg tablet 2023-07 00:00: 00 Yes [id number] DEMENTIA/SL EEP 1 tablet AT BEDTIME 1 tablet AT BEDTIME (route: oral) Med Classific ation: Central Nervous System Agents memantine 10 mg tablet 2023-07 00:00: 00 Yes [id number] DEMENTIA 1 tablet TWICE DAILY 1 tablet TWICE DAILY (route: oral) Med Classific ation: Cognitive Disorder Therapy montelukast 10 mg tablet 2023-07 00:00: 00 Yes [id number] ALLERGIES 1 tablet ONCE DAILY 1 tablet ONCE DAILY (route: oral) Med Classific ation: Respirato ry Therapy Agents spironolact one 50 mg tablet 2023-07 00:00: 00 Yes [id number] HYPERTENSIO N 1 tablet ONCE DAILY 1 tablet ONCE DAILY (route: oral) Med Classific ation: Cardiovas cular Therapy Agents Vitamin D3 50 mcg (2,000 unit) capsule 2023-07 00:00: 00 Yes [id number] SUPPLEMENT/ VITAMIN D DEF 1 capsule ONCE DAILY 1 capsule ONCE DAILY (route: oral) Med Classific ation: Electroly te Balance-N utritiona l Products silver sulfadiazin e 1 % topical cream 2023-07 00:00: 00 10-19 00:00 :00 No [id number] CELLULITIS WOUND TO LLE Per instruc tions ONCE DAILY Per instructio ns ONCE DAILY (route: topical) Med Classific ation: Dermatolo gical doxycycline monohydrate 100 mg capsule 08-24 00:00: 00 09-07 23:59 :00 No [id number] POSSIBLE INFECTION IN LEG WOUND 1 capsule [...] FOR HOME HEALTH SERVICES. [code = THE CERTIFYING PHYSICIAN, ASSOCIATED PHYSICIAN, NPP OR PA [...] ON THE CERTIFIED CARE PLAN: DR SAEED ARANGOPCP, [facility] AND ANYONE COVERING IN THEIR ABSENCE. [...] THE CERTIFIED CARE PLAN: DR SAEED [place], [facility] AND ANYONE COVERING IN THEIR ABSENCE.] [...] WILL BE ESTABLISHED THAT MEETS ALL PATIENT'S DETENTION NEEDS AND COUNTER SIGNED BY PHYSICIAN. Goal [...] End Date/Time Encounter Type Admission Type Attending [facility] Care Department Encounter ID Discharge Date Discharge Status Discharge Condition Discharge Reason Percent Goals Met 2024-10-23 00:00:00 2024-12-21 00:00:00 Outpatient ADAMRTIFIC ATJOSE M VAL[facility] [id number] 65.00
--- OUTSIDE RECORDS SUMMARY | 2024-12-12 15:57 | XMS_ITS | Clinical Summary ---
Author Organization [facility] Thalia nicole Address [address] [place] [address] Phone Care Team Providers Care Grocery Associate Name Role Phone Bryant Jain MD Primary Care Provider [phone] Allergies Active Allergy Reactions Criticality Noted Date [...] Comments Blood Pressure 128/80 06/11/2022 1:37 PM SENIOR LOAN OFFICER Pulse 60 06/11/2022 1:37 PM SENIOR LOAN OFFICER Temperature 36.2 C (97.2 F) 06/11/2022 1:37 PM SENIOR LOAN OFFICER Respiratory Rate - - Oxygen Saturation - - Inhaled Oxygen Concentration - - Weight 103 kg (226 lb) 06/11/2022 1:37 PM SENIOR LOAN OFFICER Height 180.3 cm (5' 11) 06/11/2022 1:37 PM SENIOR LOAN OFFICER Body Mass Index 31.52 06/11/2022 1:37 PM SENIOR LOAN OFFICER Plan of Treatment Health Maintenance Due Date Last Done Comments Pneumococcal PPSV23/PCV13 65 + Years / High and Highest Risk (2 of 4 - PPSV23) 08/03/2015 06/08/2015 Influenza Vaccine (Season Ended) 2025 04/21/2022, 03/21/2018, 04/04/2017, Additional history exists Insurance MEDICARE [facility] Care Teams Grocery Associate Relationship Specialty Start Date End Date Bryant Jain MD [address] [place] [address] PCP - General Internal Medicine 11/23/21
--- OUTSIDE RECORDS SUMMARY | 2024-12-12 15:57 | XMS_ITS | Clinical Summary ---
Author Organization [facility] Address [address] [place] [id number] Care Team Providers Care Power Mule Operator Name Role Phone Bryant Jain MD Primary Care Provider [phone] Allergies Active Allergy Reactions Criticality Noted Date [...] Department Care Team Description 12/10/2024 Orders Only [place] [facility] [address] [facility] [address] [place] [address] Twila Escobedo MA Paroxysmal atrial fibrillation (HCC) (Primary Dx); Cardiac pacemaker in situ; Pacemaker reprogramming/check 12/03/2024 Telephone [place] [facility] at [address] [place] [address] Opal Lemons MA from Last 3 Months Social History Tobacco Use Types Packs/Day Years Used Date Smoking Tobacco: Never Tobacco Cessation:Counseling Given: Not Answered Personal Safety Answer Date Recorded Getting School Help Needed Not on file 03/05 Sex and Gender Information Value Date Recorded Sex Assigned at Not on file 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
--- OUTSIDE RECORDS SUMMARY | 2024-12-12 15:58 | XMS_ITS ---
Author Organization [facility] Address [address] [place], [place] [id number] Care Team Providers Care Assistant Director Name Role Phone JUAN ALBERTO Fair Unavailable [phone] Cristobal Bryant Unavailable Unavailable TORIE ROB Unavailable [phone] REASON FOR VISIT *General care Medications Medication SIG (Take, Route, Frequency, Duration) Notes Start Date End Date Status ergocalciferol 1.25 MG Oral Capsule ORAL ergocalciferol 1.25 MG Oral CapsuleOriginal Medicationergocalciferol 1.25 MG Oral Capsule *Reorder from [employer] for eRx and Interaction Alerts* 0 Unknown aspirin 81 MG Delayed Release Oral Tablet ORAL aspirin 81 MG Delayed Release Oral TabletOriginal Medicationaspirin 81 MG Delayed Release Oral Tablet *Reorder from [facility] for eRx and Interaction Alerts* 0 Unknown Ammonium Lactate 12 % 1 application Externally Twice a day 3 Active terazosin 10 MG Oral Capsule ORAL terazosin 10 MG Oral CapsuleOriginal Medicationterazosin 10 MG Oral Capsule *Reorder from [employer] for eRx and Interaction Alerts* 0 Unknown Melatonin 3 MG Oral Capsule ORAL melatonin 3 MG Oral CapsuleOriginal Medicationmelatonin 3 MG Oral Capsule *Reorder from [facility] for eRx and Interaction Alerts* 0 Unknown Encounters Encounter Location Date Provider Diagnosis [address] [id number] 11/19/2024 TORIE ROB Assessments Encounter Date Diagnosis (ICD Code) Assessment Notes Treatment Notes Treatment Clinical Notes Section Notes 11/19/2024 Other Plan Of Treatment No Information Progress Notes * MANUELA FERRARI EDOB:1940 (84 yo M)Acc No.[id number]:11/19/2024 Patient: MANUELA GABRIEL Provider: Arun ROB :1940 A ge:84 Y S ex:Male Date:11/19/2024 Address:[address] [place] [address] Subjective: * Chief Complaints: * 1 . *General care. * Medical History: * Medications: T aking Ammonium Lactate 12 % Lotion 1 application Externally Twice a day , Unknown Melatonin 3 MG Oral Capsule ORAL , Notes to Pharmacist: melatonin 3 MG Oral CapsuleOriginal Medicationmelatonin 3 MG Oral Capsule *Reorder from [facility] for eRx and Interaction Alerts*, Unknown aspirin 81 MG Delayed Release Oral Tablet ORAL , Notes to Pharmacist: aspirin 81 MG Delayed Release Oral TabletOriginal Medicationaspirin 81 MG Delayed Release Oral Tablet *Reorder from [facility] for eRx and Interaction Alerts*, Unknown ergocalciferol 1.25 MG Oral Capsule ORAL , Notes to Pharmacist: ergocalciferol 1.25 MG Oral CapsuleOriginal Medicationergocalciferol 1.25 MG Oral Capsule *Reorder from [facility] for eRx and Interaction Alerts*, Unknown terazosin 10 MG Oral Capsule ORAL , Notes to Pharmacist: terazosin 10 MG Oral CapsuleOriginal Medicationterazosin 10 MG Oral Capsule *Reorder from [facility] for eRx and Interaction Alerts* Objective: * Vitals: Assessment: Plan: * Treatment: * Billing Information: * Visit Code: * Procedure Codes: * Electronic signature of BUBBA ROB DPM on 12/12/2024 at 03:57 PM CDT Sign off status: Pending * Provider: Arun ROB Date: 0 11/19/2024 Generated for Ascenc[employer] ng/Fanikhilg/eTransmitting on: 0 12/12/2024 03:57 PM CDT History and Physical Notes * Examination Category Sub-Category Detail Notes Category Not es Vascular Posterior tibial pulse:
--- OUTSIDE RECORDS SUMMARY | 2024-12-12 15:58 | XMS_ITS | Clinical Summary ---
Author Organization Unknown Care Team Providers Care Cafe Assistant Name Role Phone SAEED HARRIS Unavailable Unavailable GIGI REGISTERED NURSEJOSE M Unavailable Unavailable Payers Payer Name Policy Type Policy Number Effective Date Expira tion Date MEDICARE [employer] - EPISODIC [id number] Problems Condition Name Condition Details Condition Category [...] ALLERGIC RHINITIS, UNSPECIFIED Active 07-08 00:00: 00 [facility] (CURRENT) USE OF ANTICOAGULAN TS Active 07-08 [...] 180 mg tablet 2023-07 00:00: 00 Yes [id number] ALLERGIES 1 tablet ONCE DAILY 1 tablet ONCE DAILY (route: oral) Med Classific ation: Respirato ry Therapy Agents cefdinir 300 mg capsule 2023-07 00:00: 00 07-01 23:59 :00 No [id number] CELLULITIS TO LEFT LOWER EXTREMITY 1 capsule TWICE DAILY 1 capsule TWICE DAILY (route: oral) Med Classific ation: Anti-Infe ctive Agents docusate sodium 100 mg capsule 2023-07 00:00: 00 Yes [id number] CONSTIPATIO N 2 capsule TWICE DAILY 2 capsule TWICE DAILY (route: oral) Med Classific ation: Gastroint estinal Therapy Agents doxycycline monohydrate 100 mg capsule 2023-07 00:00: 00 07-01 23:59 :00 No [id number] CELLULITIS TO LEFT LOWER LEG 1 capsule TWICE DAILY 1 capsule TWICE DAILY (route: oral) Med Classific ation: Anti-Infe ctive Agents duloxetine 20 mg capsule,del ayed release 2023-07 00:00: 00 Yes [id number] LEG PAIN 1 capsule ONCE DAILY 1 capsule ONCE DAILY (route: oral) Med Classific ation: Central Nervous System Agents Eliquis 2.5 mg tablet 2023-07 00:00: 00 Yes [id number] BLOOD CLOT PREVENTION 1 tablet TWICE DAILY 1 tablet TWICE DAILY (route: oral) Med Classific ation: Hematolog ical Agents finasteride 5 mg tablet 2023-07 00:00: 00 Yes [id number] URINARY FLOW 1 tablet ONCE DAILY 1 tablet ONCE DAILY (route: oral) Med Classific ation: Genitouri nary Therapy Fish Oil 1,000 mg (120 mg-180 mg) capsule 2023-07 00:00: 00 Yes [id number] TRIGLYCERID E LOWER AGENT 1 capsule TWICE DAILY 1 capsule TWICE DAILY (route: oral) Med Classific ation: Cardiovas cular Therapy Agents furosemide 40 mg tablet 2023-07 00:00: 00 Yes [id number] FLUID RETENTION Per instruc tions TWICE DAILY Per instructio ns TWICE DAILY (route: oral) Med Classific ation: Cardiovas cular Therapy Agents gabapentin 100 mg capsule 2023-07 00:00: 00 Yes [id number] LEG PAIN Per instruc tions TWICE DAILY Per instructio ns TWICE DAILY (route: oral) Med Classific ation: Central Nervous System Agents I-Caps 280 mg-10 mg-2 mg capsule 2023-07 00:00: 00 Yes [id number] EYE HEALTH 1 capsule ONCE DAILY 1 capsule ONCE DAILY (route: oral) Med Classific ation: Electroly te Balance-N utritiona l Products latanoprost 0.005 % eye drops 2023-07 00:00: 00 Yes [id number] EYE PRESSURE 1 drops AT BEDTIME 1 drops AT BEDTIME (route: ophthalmic (eye)) Med Classific ation: Ophthalmi c Agents mecobalamin (vitamin B12) 1,000 mcg disintegrat ing tablet,subl ingual 2023-07 00:00: 00 Yes [id number] SUPPLEMENT 1 tablet ONCE DAILY 1 tablet ONCE DAILY (route: sublingual ) Med Classific ation: Electroly te Balance-N utritiona l Products melatonin 5 mg tablet 2023-07 00:00: 00 Yes [id number] DEMENTIA/SL EEP 1 tablet AT BEDTIME 1 tablet AT BEDTIME (route: oral) Med Classific ation: Central Nervous System Agents memantine 10 mg tablet 2023-07 00:00: 00 Yes [id number] DEMENTIA 1 tablet TWICE DAILY 1 tablet TWICE DAILY (route: oral) Med Classific ation: Cognitive Disorder Therapy montelukast 10 mg tablet 2023-07 00:00: 00 Yes [id number] ALLERGIES 1 tablet ONCE DAILY 1 tablet ONCE DAILY (route: oral) Med Classific ation: Respirato ry Therapy Agents spironolact one 50 mg tablet 2023-07 00:00: 00 Yes [id number] HYPERTENSIO N 1 tablet ONCE DAILY 1 tablet ONCE DAILY (route: oral) Med Classific ation: Cardiovas cular Therapy Agents Vitamin D3 50 mcg (2,000 unit) capsule 2023-07 00:00: 00 Yes [id number] SUPPLEMENT/ VITAMIN D DEF 1 capsule ONCE DAILY 1 capsule ONCE DAILY (route: oral) Med Classific ation: Electroly te Balance-N utritiona l Products silver sulfadiazin e 1 % topical cream 2023-07 00:00: 00 10-19 00:00 :00 No [id number] CELLULITIS WOUND TO LLE Per instruc tions ONCE DAILY Per instructio ns ONCE DAILY (route: topical) Med Classific ation: Dermatolo gical doxycycline monohydrate 100 mg capsule 08-24 00:00: 00 09-07 23:59 :00 No [id number] POSSIBLE INFECTION IN LEG WOUND 1 capsule [...] THE CERTIFIED CARE PLAN: DR SAEED ARANGOPCP, [facility] AND ANYONE COVERING IN THEIR ABSENCE. [code [...] THE CERTIFIED CARE PLAN: DR SAEED [place], [facility] AND ANYONE COVERING IN THEIR ABSENCE.] Future [...] WILL BE ESTABLISHED THAT MEETS ALL PATIENT'S [facility] NEEDS AND COUNTER SIGNED BY PHYSICIAN. Goal [...] End Date/Time Encounter Type Admission Type Attending [facility] Facility Care Department Encounter ID Discharge Date Discharge Status Discharge Condition Discharge Reason Percent Goals Met 2024-10-23 00:00:00 2024-12-21 00:00:00 Outpatient ADAMRTIFIC ATJOSE M [facility] [id number] 65.00
[2024-12-12 16:31] LABS: Creatinine Urine 77.4 mg/dL; Total Protein Urine Random 13 mg/dL; Ur Ttl Prot Creatinine Ratio 0.17 mg/mg (0-0.20)
== END 2024-12-12 15:54 | disposition home or self-care (01) ==
PROVIDERS: PCP Internal Medicine; Visit Provider Internal Medicine Nephrology
DX: N18.31 Chronic kidney disease, stage 3a (principal); E21.1 Secondary hyperparathyroidism, not elsewhere classified
CPT/HCPCS: 82570; 84156

== ENCOUNTER 2025-05-11 16:03 | Outpatient (CLI) | payer MEDICARE, SELFPAY ==
--- OUTSIDE RECORDS SUMMARY | 2024-11-19 03:50 | XMS_ITS ---
Author Organization [facility] Address [address] [place], [place] [address] Care Team Providers Care Residential Fee Appraiser Name Role Phone TORIE ROB Unavailable [phone] Bryant Jain Unavailable Unavailable REASON FOR VISIT *General care Medications Medication SIG (Take, Route, Frequency, Duration) Notes Start Date End Date Status ergocalciferol 1.25 MG Oral Capsule ORAL ergocalciferol 1.25 MG Oral CapsuleOriginal Medicationergocalciferol 1.25 MG Oral Capsule *Reorder from [employer] for eRx and Interaction Alerts* 0 Unknown aspirin 81 MG Delayed Release Oral Tablet ORAL aspirin 81 MG Delayed Release Oral TabletOriginal Medicationaspirin 81 MG Delayed Release Oral Tablet *Reorder from [employer] for eRx and Interaction Alerts* 0 Unknown Ammonium Lactate 12 % Lotion 1 application Externally Twice a day 3 Active terazosin 10 MG Oral Capsule ORAL terazosin 10 MG Oral CapsuleOriginal Medicationterazosin 10 MG Oral Capsule *Reorder from [employer] for eRx and Interaction Alerts* 0 Unknown Melatonin 3 MG Oral Capsule ORAL melatonin 3 MG Oral CapsuleOriginal Medicationmelatonin 3 MG Oral Capsule *Reorder from [employer] for eRx and Interaction Alerts* 0 Unknown Encounters Encounter Location Date Provider Diagnosis [address] [id number] 11/19/2024 TORIE ROB Plan Of Treatment Next Appt Details Provider Name:TORIE DEWITT, 05/13/2025 12:30:00 PM, [address] [place], [place], [id number], History and Physical Notes * Examination Category Sub-Category Detail Notes Category Not es Vascular Posterior tibial pulse: Progress Notes * OLGAMANUELA CRUZ EDOB:1940 (84 yo M)Acc No.[id number]:11/19/2024 Patient: MANUELA GABRIEL Provider: Arun ROB :1940 A ge:84 Y S ex:Male Date:11/19/2024 Address:[address] [place], [place] [id number] Subjective: * Chief Complaints: * * General care * Medications: T akingAmmonium Lactate 12 % Lotion 1 application Externally Twice a day Taking Ammonium Lactate 12 % Lotion 1 application Externally Twice a day UnknownMelatonin 3 MG Oral Capsule ORAL , Notes to Pharmacist: melatonin 3 MG Oral CapsuleOriginal Medicationmelatonin 3 MG Oral Capsule *Reorder from [facility] for eRx and Interaction Alerts*aspirin 81 MG Delayed Release Oral Tablet ORAL , Notes to Pharmacist: aspirin 81 MG Delayed Release Oral TabletOriginal Medicationaspirin 81 MG Delayed Release Oral Tablet *Reorder from [facility] for eRx and Interaction Alerts*ergocalciferol 1.25 MG Oral Capsule ORAL , Notes to Pharmacist: ergocalciferol 1.25 MG Oral CapsuleOriginal Medicationergocalciferol 1.25 MG Oral Capsule *Reorder from [facility] for eRx and Interaction Alerts*terazosin 10 MG Oral Capsule ORAL , Notes to Pharmacist: terazosin 10 MG Oral CapsuleOriginal Medicationterazosin 10 MG Oral Capsule *Reorder from [facility] for eRx and Interaction Alerts*Unknown Melatonin 3 MG Oral Capsule ORAL , Notes to Pharmacist: melatonin 3 MG Oral CapsuleOriginal Medicationmelatonin 3 MG Oral Capsule *Reorder from [facility] for eRx and Interaction Alerts*Unknown aspirin 81 MG Delayed Release Oral Tablet ORAL , Notes to Pharmacist: aspirin 81 MG Delayed Release Oral TabletOriginal Medicationaspirin 81 MG Delayed Release Oral Tablet *Reorder from [facility] for eRx and Interaction Alerts*Unknown ergocalciferol [...] Electronic signature of BUBBA ROB DPM on 05/11/2025 at 04:51 PM SATURATION DIVER Sign off status: Pending * Provider: Arun ROB Date: 0 11/19/2024 Generated for [employer] parr/Juan Carlos/Buffy on: 1 07/11/2024 04:51 PM SATURATION DIVER
--- OUTSIDE RECORDS SUMMARY | 2025-03-04 08:40 | XMS_ITS ---
Author Organization [facility] Address [address] [place], [place] [id number] Care Team Providers Care Water Resource Agent Name Role Phone TORIE ROB Unavailable [phone] Bryant Jain Unavailable Unavailable Allergies No Known Allergies REASON FOR VISIT *General care Medications Medication SIG (Take, Route, Frequency, Duration) Notes Start Date End Date Status ergocalciferol 1.25 MG Oral Capsule ORAL ergocalciferol 1.25 MG Oral CapsuleOriginal Medicationergocalciferol 1.25 MG Oral Capsule *Reorder from [employer] for eRx and Interaction Alerts* 0 Unknown aspirin 81 MG Delayed Release Oral Tablet ORAL aspirin 81 MG Delayed Release Oral TabletOriginal Medicationaspirin 81 MG Delayed Release Oral Tablet *Reorder from [employer] [facility] for eRx and Interaction Alerts* 0 Unknown terazosin 10 MG Oral Capsule ORAL terazosin 10 MG Oral CapsuleOriginal Medicationterazosin 10 MG Oral Capsule *Reorder from [facility] for eRx and Interaction Alerts* 0 Unknown Melatonin 3 MG Oral Capsule ORAL melatonin 3 MG Oral CapsuleOriginal Medicationmelatonin 3 MG Oral Capsule *Reorder from [employer] [facility] for eRx and Interaction Alerts* 0 [...] 03/04/2025 Encounters Encounter Location Date Provider Diagnosis [address] [id number] 03/04/2025 TORIE ROB Tinea unguium B35.1 ; Pain in right toe(s) M79.674 ; Pain in left toe(s) M79.675 and Atherosclerosis of [place] arteries of extremities with intermittent claudication, bilateral [...] toe(s) (ICD-10 - M79.675) 03/04/2025 Atherosclerosis of [place] arteries of extremities with intermittent claudication, bilateral [...] sooner if problems arise Provider Name:TORIE DEWITT, 05/13/2025 12:30:00 PM, [address] [place] [address], [id number], History and Physical Notes * HPI (History [...] * MANUELA FERRARI EDOB:1940 (84 yo M)Acc No.[id number]:03/04/2025 Patient: MANUELA GABRIEL Provider: Arun ROB :1940 A ge:84 Y S ex:Male Date:03/04/2025 Address:[address] [place] [address] Subjective: * Chief Complaints: * * General [...] Patient denies c hest pain, history of [place], irregular heartbeat. M usculoskeletal: Patient denies a [...] Medicationmelatonin 3 MG Oral Capsule *Reorder from [facility] for eRx and Interaction Alerts*aspirin 81 MG Delayed Release Oral Tablet ORAL , Notes to Pharmacist: aspirin 81 MG Delayed Release Oral TabletOriginal Medicationaspirin 81 MG Delayed Release Oral Tablet *Reorder from [facility] for eRx and Interaction Alerts*ergocalciferol 1.25 MG Oral Capsule ORAL , Notes to Pharmacist: ergocalciferol 1.25 MG Oral CapsuleOriginal Medicationergocalciferol 1.25 MG Oral Capsule *Reorder from [facility] for eRx and Interaction Alerts*terazosin 10 MG Oral Capsule ORAL , Notes to Pharmacist: terazosin 10 MG Oral CapsuleOriginal Medicationterazosin 10 MG Oral Capsule *Reorder from [facility] for eRx and Interaction Alerts*Medication List reviewed and reconciled with the patientUnknown Melatonin 3 MG Oral Capsule ORAL , Notes to Pharmacist: melatonin 3 MG Oral CapsuleOriginal Medicationmelatonin 3 MG Oral Capsule *Reorder from [facility] for eRx and Interaction Alerts*Unknown aspirin 81 MG Delayed Release Oral Tablet ORAL , Notes to Pharmacist: aspirin 81 MG Delayed Release Oral TabletOriginal Medicationaspirin 81 MG Delayed Release Oral Tablet *Reorder from [facility] for eRx and Interaction Alerts*Unknown ergocalciferol 1.25 MG Oral Capsule ORAL , Notes to Pharmacist: ergocalciferol 1.25 MG Oral CapsuleOriginal Medicationergocalciferol 1.25 MG Oral Capsule *Reorder from [facility] for eRx and Interaction Alerts*Unknown terazosin 10 MG Oral Capsule ORAL , Notes to Pharmacist: terazosin 10 MG Oral CapsuleOriginal Medicationterazosin 10 MG Oral Capsule *Reorder from [facility] for eRx and Interaction Alerts*Medication List [...] - M79.675 4 . A therosclerosis of [place] arteries of extremities with intermittent claudication, bilateral legs - I70.213 Plan: * Treatment: * Follow Up: 1 0-12 Weeks (Reason: At Risk Foot care, sooner if problems arise) Billing Information: * Visit Code: 52229 Office Visit, Est Pt., Level 3. * Procedure Codes: * Electronic signature of BUBBA ROB DPM on 05/11/2025 at 04:50 PM MARINE MACHINIST Sign off status: Pending * Provider: Arun ROB Date: 0 03/04/2025 Generated for [employer] parr/Juan Carlos/Buffy on: 07/11/2024 04:50 PM MARINE MACHINIST
--- NOTE | 2025-05-11 16:08 | ECHO_ITS ---
Patient Info Name: Damion Soni Age: 84 years : 1940 Gender: Male Ht: 71 in Wt: 211 lbs BSA: 2.21 m2 HR: 91 bpm BP: 142 / 73 mmHg Technical Quality: Poor Exam Date: 05/11/2025 4:12 PM Patient Status: unknown Admit Date: 05/11/2025 Exam Type: CA echo dop color flow w con Complete two-dimensional, color flow and Doppler transthoracic echocardiogram is performed with contrast to opacify the left ventricle and to improve the deliniation of the left ventricle endocardial borders. Planning Aide: Chirag Bob III Attending Provider: Sonido Spence Contrast/Agitated Saline Contrast/Ag. Saline: Definity Amount: 2.00 ml Administered By: Chirag Bob III Existing IV Access: No IV Access Condition: patent with no signs of infiltration New IV Access: Left Site Condition: IV removed Reason for Poor Study: poor echocardiographic windows Summary 1. Definity contrast administered improved wall motion interpretation. 2. Left ventricular chamber dimension is normal. 3. Left ventricular systolic function is mildly globally reduced, estimated at 45-50. 4. Left ventricular septal wall motion is abnormal with septal motion related to pacing. 5. The left ventricular diastolic function is grade I diastolic dysfunction. 6. E/e' 12 is mildly elevated. 7. Linear artifact in right ventricle suggestive of catheter(s), pacemaker lead(s), or ICD lead(s). 8. Left atrial chamber dimension is mildly enlarged. 9. Right atrial chamber dimension is mildly enlarged. 10. Linear artifact in the right atrium suggestive of catheter(s), pacemaker lead(s), or ICD lead(s). 11. The aortic valve is not well visualized. Cannot determine number of aortic valve leaflets. 12. No pulmonary hypertension, estimated pulmonary arterial systolic pressure is 36 mmHg. Left Ventricle Definity contrast administered improved wall motion interpretation. Left ventricular chamber dimension is normal. Left ventricular systolic function is mildly globally reduced, estimated at 45-50. Left ventricular septal wall motion is abnormal with septal motion related to pacing. The left ventricular diastolic function is grade I diastolic dysfunction. E/e' 12 is mildly elevated. Right Ventricle Right ventricular chamber dimension is normal. Right ventricular systolic function is normal. Linear artifact in right ventricle suggestive of catheter(s), pacemaker lead(s), or ICD lead(s). Left Atria Left atrial chamber dimension is mildly enlarged. Right Atria Right atrial chamber dimension is mildly enlarged. Linear artifact in the right atrium suggestive of catheter(s), pacemaker lead(s), or ICD lead(s). Aortic Valve The aortic valve is not well visualized. Cannot determine number of aortic valve leaflets. There is no aortic valve stenosis. There is no aortic valve regurgitation. Pulmonic Valve There is no pulmonic regurgitation. Mitral Valve There is no mitral valve stenosis. There is no mitral valve regurgitation. Tricuspid Valve There is no tricuspid valve regurgitation. No pulmonary hypertension, estimated pulmonary arterial systolic pressure is 36 mmHg. Pericardium/Pleural There is no pericardial effusion. Inferior Vena Cava Normal inferior vena cava with >50% collapse upon inspiration consistent with normal right atrial pressure, 5 mmHg. Aorta The aortic root size at the sinus of Valsalva is normal. Left Ventricular Outflow Tract Name Value Normal LVOT 2D LVOT Diameter 2.1 cm LVOT Doppler LVOT Peak Velocity 96 cm/s LVOT Peak Gradient 4 mmHg LVOT Mean Gradient 2 mmHg LVOT VTI 19 cm LVOT VTI/AV VTI Ratio 0.8 LVOT Stroke Volume 65 ml LVOT CO 5.4 l/min LVOT CI 2.4 l/min/m2 Pulmonic Valve Name Value Normal PV Doppler PV Peak Velocity 77 cm/s PV Peak Gradient 2 mmHg PV Mean Gradient 1 mmHg Mitral Valve Name Value Normal MV Doppler MV Peak Gradient 4 mmHg MV Mean Gradient 2 mmHg MV Area (Cont Eq VTI) 2.3 cm2 MV Diastolic Function MV E Peak Velocity 80 cm/s MV A Peak Velocity 102 cm/s MV E/A 0.8 MV Decel Time (PW) 266 ms MV Annular TDI MV E/e' (Septal) 13.6 MV E/e' (Lateral) 11.2 MV E/e' (Average) 12.4 Tricuspid Valve Name Value Normal TV Regurgitation Doppler TR Peak Velocity 280 cm/s TR Peak Gradient 31 mmHg Estimated PAP/RSVP RA Pressure 5 mmHg <=5 PA Systolic Pressure 36 mmHg <36 RV Systolic Pressure 36 mmHg <36 Aortic Valve Name Value Normal AV Doppler AV Peak Velocity 124 cm/s AV Peak Gradient 6 mmHg AV Mean Gradient 3 mmHg AV VTI 23 cm AV Area (Cont Eq VTI) 2.9 cm2 >=3.0 AV Area (Cont Eq Eloy) 2.7 cm2 AV DI (Eloy) 0.77 AV Regurgitation 2D LVOT Area 3.5 cm2 Ventricles Name Value Normal LV Dimensions 2D/MM LVOT Diameter 2.1 cm LV Fractional Shortening/Ejection Fraction 2D/MM LV Diastolic Volume (4C MOD) 105 ml LV EF (4C MOD) 45 % LV Diastolic Volume (2C MOD) 95 ml LV EF (2C MOD) 53 % LV Diastolic Volume (BP MOD) 103 ml 62-150 LV Diastolic Volume Index (BP MOD) 46 ml/m2 34-74 LV Systolic Volume (BP MOD) 53 ml 21-61 LV Systolic Volume Index (BP MOD) 24 ml/m2 11-31 LV EF (BP MOD) 49 % 52-72 LV Diastolic Length (4C) 8.1 cm LV Systolic Length (4C) 8.1 cm LV Stroke Volume (4C MOD) 47 ml Atria Name Value Normal LA Dimensions LA Volume (4C A-L) 73 ml LA Volume (BP A-L) 63 ml RA Dimensions RA Systolic Major [place] Length (4C) 5.7 cm 2.1-2.7 RA Area (4C) 22.7 cm2 <=18.0 Report Signatures
--- OUTSIDE RECORDS SUMMARY | 2025-05-11 16:51 | XMS_ITS | Encounter Summary ---
Author Organization [facility] Address [facility] [place] [address] Care Team Providers Care Mulling Machine Operator Name Role Phone Bryant Jain MD Primary Care Provider [phone] Jose Casas MD Unavailable [phone] Encounter Details Date Type Department Care Team (Late st Contact Info) Description 09/03/2016 Abstract [facility] [address] [place] [address] Jose Casas MD [address] [place] [address] Social History Tobacco Use Types Packs/Day Years Used Date Smoking Tobacco: Never Alcohol Use Standard Drinks/Week Comments No 0 (1 standard drink = 0.6 oz pur e alcohol) Sex and Gender Information Value Date Recorded Sex Assigned at Male 09/02/2024 12:52 PM SUPERVISOR [employer] Legal Sex Male 10:25 PM CDT Gender Identity Not on file Sexual Orientation Not on file Occupation Industry Job Start Date Job End Date retired Not on file Not on file Not on file documented as of this encounter Plan of Treatment Not on file documented as of this encounter Procedures Procedure Name Priority Date/Time Associated Diagnosis Comments BASIC METABOLIC PANEL Routine 09/03/2016 documented in this encounter Results * BASIC METABOLIC PANEL (09/03/2016) SODIUM S/P/B 139 POTASSIUM S/P/B 3.9 CO2 27 CHLORIDE S/P/B 104 GLUCOSE 129 CALCIUM S/P/B 8.6 BUN 20 CREATININE S/P/B 1.16 0.7 - 1.3 MAGNESIUM 2.1 B TYPE NATRIURETIC PEPTIDE 48 09/03/2016 us Doc [facility] LABORATORY Final Result documented in this encounter Visit Diagnoses Not on filedocumented in this encounter Care Teams Mulling Machine Operator Relationship Specialty Start Date End Date Bryant Jain MD [address] [place] [address] PCP - General INTERNAL MEDICINE 07/25/16 Jose Casas MD [address] [place] [address] CARDIOVASCULAR DISEASE 07/25/16 documented as of this encounter
--- OUTSIDE RECORDS SUMMARY | 2025-05-11 16:51 | XMS_ITS | Clinical Summary ---
Author Organization [facility] Address [address] [place] [address] Care Team Providers Care Data Virtualization Consultant Name Role Phone Bryant Jain MD Primary Care Provider [phone] Allergies Active Allergy Reactions Criticality Noted Date [...] (two) times a day 60 tablet 11 Active loratadine (CLARITIN) 10 mg tablet Take 1 tablet (10 mg total) by mouth daily Active Active Problems No known active problems Encounters Date Type Department Care Team Description 04/13/2025 12:45 PM CDT Ancillary Procedure [facility] at [address] [address] Pacemaker 04/13/2025 12:45 PM CDT Office Visit [facility] at [address] [address] Sonido Spence MD Paroxysmal A-fib (HCC) (Primary Dx); Pacemaker from Last 3 Months Social History Tobacco Use Types Packs/Day Years Used Date Smoking Tobacco: Never Tobacco Cessation:Counseling Given: Not Answered Sex and Gender Information Value Date Recorded Sex Assigned at Not on file Legal Sex 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 Gender Identity Not on file Sexual Orientation Not on file Last Filed Vital Signs Vital Sign Reading Time Taken Comments Blood Pressure 162/75 04/13/2025 1:04 PM CDT Pulse 78 04/13/2025 1:04 PM CDT Temperature - - Respiratory Rate - - Oxygen Saturation - - Inhaled Oxygen Concentration - - Weight 92.5 kg (204 lb) 04/13/2025 1:04 PM CDT Height 180.3 cm (5' 11) 04/13/2025 1:04 PM CDT Body Mass Index 28.45 04/13/2025 1:04 PM CDT Plan of Treatment Health Maintenance Due Date Last Done Comments Depression Screening 1941 Fall Risk Assessment 1940 Hepatitis B Screening 1959 Zoster Vaccine (1 of 2) 1991 DTaP/Tdap/Td Vaccine (1 - Tdap) 07/31/2006 7 Well Visit 65+ 2006 Covid-19 Vaccine (2024-2 6 season) 2025 04/01/2023, 09/30/2022, 07/14/2021, Additional history exists Influenza Vaccine (#1) 2025 , 04/21/2022, 03/07/2022, Additional history exists Pneumococcal vaccine 65+ Completed 06/08/2015, 05/09 Procedures Procedure Name Priority Date/Time Associated Diagnosis Comments DEVICE CHECK - IN OFFICE Routine 04/13/2025 2:17 PM CDT Pacemaker from Last 3 Months Results * DEVICE CHECK - IN OFFICE (04/13/2025 2:17 PM CDT) Anatomical Region Laterality Modality Other Narrative 04/15/2025 5:26 PM CDT Images from the original result were not included. 04/13/2025 [facility] in-office device check The complete report is attached to this Result Text in Card Decorator 04/13/2025 [facility] in-office tablet check Sonido Spence MD [facility] PROCEDU RES Final Result from Last 3 Months Insurance MEDICARE [facility] MEDICARE SUPPLEMENT Care Teams Data Virtualization Consultant Relationship Specialty Start Date End Date Bryant Jain MD PCP - General Internal Medicine 03/05/24
--- OUTSIDE RECORDS SUMMARY | 2025-05-11 16:51 | XMS_ITS | Patient Health Record ---
Author Organization [facility] Address [address] [place], [place] [address] Care Team Providers Care Junk Removal Specialist Name Role Phone TORIE ROB Unavailable [phone] Bryant Jain Unavailable Unavailable EVIE GALLEGOS Unavailable [phone] JUAN TONG Unavailable [phone] Allergies No Known Allergies Reason For Referral No Information Medications Medication SIG (Take, Route, Frequency, Duration) Notes Start Date End Date Status ergocalciferol 1.25 MG Oral Capsule ORAL ergocalciferol 1.25 MG Oral CapsuleOriginal Medicationergocalciferol 1.25 MG Oral Capsule *Reorder from [facility] for eRx and Interaction Alerts* 0 Unknown aspirin 81 MG Delayed Release Oral Tablet ORAL aspirin 81 MG Delayed Release Oral TabletOriginal Medicationaspirin 81 MG Delayed Release Oral Tablet *Reorder from [facility] for eRx and Interaction Alerts* 0 Unknown terazosin 10 MG Oral Capsule ORAL terazosin 10 MG Oral CapsuleOriginal Medicationterazosin 10 MG Oral Capsule *Reorder from [facility] for eRx and Interaction Alerts* 0 Unknown Melatonin 3 MG Oral Capsule ORAL melatonin 3 MG Oral CapsuleOriginal Medicationmelatonin 3 MG Oral Capsule *Reorder from [facility] for eRx and Interaction Alerts* 0 Unknown Ammonium Lactate 12 % Lotion 1 application Externally Twice a day 3 Active Immunizations Vaccine Route Administration Date Status Comme nts Influenza, high dose seasonal Unknown 04/15/2023 Admini stered Social History Social History Additional Details Category Social Info Options Details Migrated Social History Migrated Social History History of tobacco use : , Smoking Status : Never smoked Vital Signs Height-cm 177.80 cm 03/04/2025 Weight-kg 86.18 kg 03/04/2025 Height 70.00 in 03/04/2025 Weight 190 lbs 03/04/2025 BMI 27.26 kg/m2 03/04/2025 Encounters Encounter Location Date Provider Diagnosis [address] [id number] 03/04/2025 TORIE ROB Tinea unguium B35.1 ; Pain in right toe(s) M79.674 ; Pain in left toe(s) M79.675 and Atherosclerosis of [place] arteries of extremities with intermittent claudication, bilateral legs I70.[address] [id number] 06/11/2024 JUAN TONG Tinea unguium B35.1 ; Pain in right toe(s) M79.674 ; Pain in left toe(s) M79.675 ; Unspecified atherosclerosis of [place] arteries of extremities, bilateral legs I70.203 and Xerosis cutis L85.[address] [id number] 08/27/2024 EVIE GALLEGOS Tinea unguium B35.1 ; Pain in right toe(s) M79.674 ; Pain in left toe(s) M79.675 and Atherosclerosis of [place] arteries of extremities with intermittent claudication, bilateral legs I70.213 Assessments Encounter Date Diagnosis (ICD Code) Assessment Notes Treatment Notes Treatment Clinical Notes Section Notes 06/11/2024 Tinea unguium (ICD-10 - B35.1) Aseptic [...] in right toe(s) (ICD-10 - M79.674) 03/04/2025 Tinea unguium (ICD-10 - B35.1) FUNGAL [...] Pain in left toe(s) (ICD-10 - M79.675) 08/27/2024 Pain in left toe(s) (ICD-10 - M79.675) 06/11/2024 Pain in left toe(s) (ICD-10 - M79.675) 06/11/2024 Unspecified atherosclerosis of tun[place] arteries of extremities, 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) Patient educated on risks and aggravating factors of PVD, including conservative treatment options such as a diet and exercise regimen to aid in slowing progression of vascular disease 08/27/2024 Atherosclerosis of [place] arteries of extremities with intermittent claudication, bilateral legs (ICD-10 - I70.213) 03/04/2025 Atherosclerosis of tun[place] arteries of extremities with intermittent claudication, bilateral legs (ICD-10 - I70.213) 06/11/2024 Xerosis cutis (ICD-10 - L85.3) The patient was educated regarding proper hydration of their feet/ankles and the patient was given several recommendations for proper creams to protect/hydrate and keep the area healthy. Continue with use of lotion to be applied to feet daily. Plan Of Treatment Next Appt Details Provider Name:TORIE WHITT ESDRAS, 05/13/2025 12:30:00 PM, [address] [place] [address], [id number], Insurance Providers Payer Name Payer Address Payer Phone Subscriber Number Group Number Insured Name Patient Relationship to Insured Coverage Start Date Coverage End Date Medicare Part B [place] [address] [place] [address] [id number] MANUELA FERRARI Self - patient is the insured [facility] ([facility]) ATTN CLAIMS [address] [place] [address] [id number] MANUELA FERRARI Self - patient is the insured
--- OUTSIDE RECORDS SUMMARY | 2025-05-11 16:51 | XMS_ITS | Clinical Summary ---
Author Organization [facility] [employer] Address [address] [place] [address] Care Team Providers Care Turbine Engineer Name Role Phone Bryant Jain MD Primary Care Provider [phone] Daphne Auguste MD Unavailable [phone] Source Comments [facility] [employer],non-owned Affiliates and Associated Physician Practices is amultiple site organization consisting of ambulatory clinics and hospital sitesin [place], [place], [place] and [place]. This disclosure is being madepursuant to the Care Everywhere program and may not contain all information available regarding this patient. Last updated 18.[facility] [employer] Allergies Active Allergy Reactions Criticality Noted Date [...] tablet by mouth 2 times daily Active lfoop-1-efyr ethyl esters (LOVAZA) 1 g capsule Take [...] 05/05/2018 04/03/2023 History of snoring 08/28/2016 04/03/2023 Social History Tobacco Use Types Packs/Day Years [...] yrs (1 - 1-dose 75+ series) 2016 DEPRESSION SCREENING 07/08/2024 COVID-19 VACCINE (1 - season) 2025 INFLUENZA VACCINE (#1) 2025 3, 04/21/2022, 03/21/2018, Additional history exists HEPATITIS B [...] on patient's age to complete this topic Advance Directives * Full Code (Latest Code Status on File) Date Activated Date Inactivated Comments 11/08/2021 7:15 PM 11/10/2021 2:59 PM Care Teams Turbine Engineer Relationship Specialty Start Date End Date Bryant Jain MD [address] [place], [place] [id number] PCP - General Internal Medicine 11/21/21 [place] [address] [address] [place] [id number] Cardiovascular Disease 12/19/21
--- OUTSIDE RECORDS SUMMARY | 2025-05-11 16:51 | XMS_ITS | Clinical Summary ---
Author Organization [facility] Address [address] [place] [address] Care Team Providers Care Rn Clinical Name Role Phone Bryant Jain MD Primary Care Provider [phone] Jose Casas MD Unavailable [phone] Allergies Active Allergy Reactions Criticality Noted Date Comments Donepezil Unknown 07/07/2018 Medications finasteride 5 MG tablet Take 5 mg by mouth daily. Active spironolactone 50 MG tablet Take 50 mg by mouth daily. Active Terazosin HCl 10 MG Cap Take 1 capsule by mouth nightly at bedtime. at bedtime. Active latanoprost 0.005 % ophthalmic solution 1 drop nightly at bedtime. Active Cholecalciferol (VITAMIN D) 1000 UNIT tablet Take 1,000 Units by mouth daily. Active aspirin EC (ASPIRIN) 81 MG EC tablet Take 81 mg by mouth daily. Active furosemide 20 MG tablet Take 2 tablets (40 mg total) by mouth daily. 180 tablet 3 7 Active Additional Information Patient taking differently: 20 mgOral Daily, Reported on 05/05/2018 omega-3 fatty acid 1000 MG capsule Take 1,000 mg by mouth 3 (three) times daily. Active vitamin B-12 1000 MCG tablet Take 1,000 mcg by mouth daily. Active melatonin 3 MG tablet Take 1 tablet (3 mg total) by mouth nightly as needed. 30 tablet 8 Active fluorometholone 0.1 % ophthalmic suspension 9 Active neomycin-polymyx in-dexamethasone 3.5-19306-3.1 Ointment 9 Active memantine 10 MG tabletIndication s:Dementia without behavioral disturbance, unspecified dementia type (CMS/HCC) Take 1 tablet (10 mg total) by mouth 2 (two) times daily. 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, limited to breakdown of skin Non-pressure chronic ulcer o f right calf, limited to breakdown of skin Immunizations Immunization Administration Dates Next Due Influenza (Generic) 05/20/2012 Influenza Adult (Generic) 03/21/2018,,03/23/2016,04/25/2015,1 ,05/06/2013,04/20/2011 Pneumococcal (Pneumovax 23) 05/29/2013 Pneumococcal (Prevnar 13) 06/08/2015 Td (Tenivac) preservative free 07/30/2006 Family History Medical History Relation Comments Heart Disease Brother Cancer Father Sudden Mother Relation Status Comments Brother Father Mother Social History Tobacco Use Types Packs/Day Years Used Date Smoking Tobacco: Former Smokeless Tobacco: Never Alcohol Use Standard Drinks/Week Comments No 0 (1 standard drink = 0.6 oz pur e alcohol) Sex and Gender Information Value Date Recorded Sex Assigned at Male 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 Legal Sex Male 10:25 PM CDT Gender Identity Not on file Sexual Orientation Not on file Occupation Industry Job Start Date Job End Date retired Not on file Not on file Not on file Last Filed Vital Signs Vital Sign Reading Time Taken Comments Blood Pressure 128/70 12/31/2019 12:59 PM CDT Pulse 73 12/31/2019 12:59 PM CDT Temperature 36.5 C (97.7 F) 05/07/2018 8:18 AM CDT Respiratory Rate 20 05/07/2018 4:58 AM CDT Oxygen Saturation 97% 12/31/2019 12: 59 PM CDT Inhaled Oxygen Concentration - - Weight 101.5 kg (223 lb 12.8 oz) 2019 12:59 PM CDT Height 180.3 cm (5' 11) 12/31/2019 12: 59 PM CDT Body Mass Index 31.21 12/31/2019 12:59 PM CDT Plan of Treatment Health Maintenance Due Date Last Done Comments Zoster Vaccines (1 of 2) 1991 DTaP, Tdap and Td Vaccines (1 - Tdap) 07/31/2006 07/30/2006 Annual Medicare Wellness Visit 2006 RSV Immunization or 60+ Years (1 - 1-dose 75+ series) 2016 COVID-19 Vaccine (1 - season) 2025 Influenza Adult (#1) 2025 04/15/2023, 04/21/2022, 03/21/2018, Additional history exists Pneumococcal Vaccine: 50+ Years Completed 06/08/2015, 05/29/2013 Hepatitis A Vaccines Aged Out No long er eligible based on patient's age to complete this topic Meningococcal B Vaccine Aged Out No l onger eligible based on patient's age to complete this topic Meningococcal Vaccine Aged Out No rocío cullen eligible based on patient's age to complete this topic RSV Immunizations Under 20 Months Aged Out No longer eligible based on patient's age to complete this topic Insurance MEDICARE MEDICARE [facility] Advance Directives * Full Code (Latest Code Status on File) Date Activated Date Inactivated Comments 05/05/2018 3:33 AM 05/07/2018 3:41 PM Care Teams Rn Clinical Relationship Specialty Start Date End Date Bryant Jain MD [address] [place] [address] PCP - General INTERNAL MEDICINE 07/25/16 Jose Casas MD [address] [place] [address] CARDIOVASCULAR DISEASE 07/25/16
--- OUTSIDE RECORDS SUMMARY | 2025-05-11 16:51 | XMS_ITS | Encounter Summary ---
Author Organization [facility] Address [facility] [place] [address] Care Team Providers Care Bullet Assembly Press Operator Name Role Phone Bryant Jain MD Primary Care Provider [phone] Jose Casas MD Unavailable Encounter Details Date Type Department Care Team (Late st Contact Info) Description 07/22/2016 Abstract [facility] [address] [place] [address] Jose Casas MD [address] [place] [address] Social History Tobacco Use Types Packs/Day Years Used Date Smoking Tobacco: Never Sex and Gender Information Value Date Recorded Sex Assigned at Male 09/02/2024 12:52 PM 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 Legal Sex Male 10:25 PM CDT Gender Identity Not on file Sexual Orientation Not on file Occupation Industry Job Start Date Job End Date retired Not on file Not on file Not on file documented as of this encounter Plan of Treatment Not on file documented as of this encounter Visit Diagnoses Not on filedocumented in this encounter Care Teams Bullet Assembly Press Operator Relationship Specialty Start Date End Date Bryant Jain MD [address] [place] [phone] PCP - General INTERNAL MEDICINE 07/25/16 Joes Casas MD [address] [place] [phone] CARDIOVASCULAR DISEASE 07/25/16 documented as of this encounter
--- OUTSIDE RECORDS SUMMARY | 2025-05-11 16:51 | XMS_ITS | Clinical Summary ---
Author Organization [facility] Address [address] [place] [address] Phone Care Team Providers Care Soa Engineer Name Role Phone Bryant Jain MD Primary Care Provider [phone] Allergies Active Allergy Reactions Criticality Noted Date [...] Comments Blood Pressure 128/80 06/11/2022 1:37 PM ASSISTANT FRONT OFFICE MANAGER Pulse 60 06/11/2022 1:37 PM ASSISTANT FRONT OFFICE MANAGER Temperature 36.2 C (97.2 F) 06/11/2022 1:37 PM ASSISTANT FRONT OFFICE MANAGER Respiratory Rate - - Oxygen Saturation - - Inhaled Oxygen Concentration - - Weight 103 kg (226 lb) 06/11/2022 1:37 PM ASSISTANT FRONT OFFICE MANAGER Height 180.3 cm (5' 11) 06/11/2022 1:37 PM ASSISTANT FRONT OFFICE MANAGER Body Mass Index 31.52 06/11/2022 1:37 PM ASSISTANT FRONT OFFICE MANAGER Plan of Treatment Health Maintenance Due Date Last Done Comments Pneumococcal PPSV23/PCV13 65 + Years / Low and Medium Risk (2 of 3 - PCV20 or PCV21) 06/08/2016 06/08/2015 Influenza Vaccine (#1) 2025 2, 03/21/2018, 04/04/2017, Additional history exists Insurance MEDICARE [facility] Care Teams Soa Engineer Relationship Specialty Start Date End Date Bryant Jain MD [address] [place] [address] PCP - General Internal Medicine 11/23/21
--- NOTE | 2025-05-11 17:57 | IVDEFINITY ---
Prior to administration of IV Definity the patient was educated on the risks and benefits of the imaging enhancing agent including potential adverse side effects. The patient verbalized understanding. Allergies were verified. No exclusion criteria were identified and at least one of the following inclusion criteria were met: 1) physician request, 2) patient technically difficult to image (per the [place] [employer] Echocardi[employer] guidelines of two or more segments not discernable within the apical view), or 3) questionable left ventricular function. ?
--- OUTSIDE RECORDS SUMMARY | 2025-06-18 18:00 | XMS_ITS | Clinical Summary ---
Author Organization Unknown Care Team Providers Care Bilingual Speech Language Pathologist Name Role Phone SAEED HARRIS Unavailable Unavailable KAROL REGISTERED NURSE CONSTRUCTION SUPERINTENDENT, PURNIMA jeffery Unavailable Payers Payer Name Policy Type Policy Number Effective Date Expira tion Date MEDICARE [place] - EPISODIC [id number] Problems Condition Name Condition Details Condition Category Status Onset Date Resolution Date Last Treatment Date Treating Clinician Comments LACERATION WITHOUT FOREIGN BODY, LEFT LOWER LEG, SUBS ENCNTR Active 07-08 00:00: 00 ESSENTIAL (PRIMARY) HYPERTENSION Active 07-08 00:00: 00 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 S Active 07-08 00:00: 00 DEFICIENCY OF OTHER SPECIFIED B GROUP VITAMINS Active 07-08 00:00: 00 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, UNSP SEV, WITH OTH BEH DISTRB Active 07-08 00:00: 00 ATRIOVENTRIC ULAR BLOCK, [...] ALLERGIC RHINITIS, UNSPECIFIED Active 07-08 00:00: 00 ALF (CURRENT) USE OF ANTICOAGULAN TS Active 07-08 [...] 180 mg tablet 2023-07 00:00: 00 Yes [id number] ALLERGIES 1 tablet ONCE DAILY 1 tablet ONCE DAILY (route: oral) Med Classific ation: Respirato ry Therapy Agents cefdinir 300 mg capsule 2023-07 00:00: 00 07-01 23:59 :00 No [id number] CELLULITIS TO LEFT LOWER EXTREMITY 1 capsule TWICE DAILY 1 capsule TWICE DAILY (route: oral) Med Classific ation: Anti-Infe ctive Agents docusate sodium 100 mg capsule 2023-07 00:00: 00 Yes [id number] CONSTIPATIO N 2 capsule TWICE DAILY 2 capsule TWICE DAILY (route: oral) Med Classific ation: Gastroint estinal Therapy Agents doxycycline monohydrate 100 mg capsule 2023-07 00:00: 00 07-01 23:59 :00 No [id number] CELLULITIS TO LEFT LOWER LEG 1 capsule TWICE DAILY 1 capsule TWICE DAILY (route: oral) Med Classific ation: Anti-Infe ctive Agents duloxetine 20 mg capsule,del ayed release 2023-07 00:00: 00 Yes [id number] LEG PAIN 1 capsule ONCE DAILY 1 capsule ONCE DAILY (route: oral) Med Classific ation: Central Nervous System Agents Eliquis 2.5 mg tablet 2023-07 00:00: 00 Yes [id number] BLOOD CLOT PREVENTION 1 tablet TWICE DAILY 1 tablet TWICE DAILY (route: oral) Med Classific ation: Hematolog ical Agents finasteride 5 mg tablet 2023-07 00:00: 00 Yes [id number] URINARY FLOW 1 tablet ONCE DAILY 1 tablet ONCE DAILY (route: oral) Med Classific ation: Genitouri nary Therapy Fish Oil 1,000 mg (120 mg-180 mg) capsule 2023-07 00:00: 00 Yes [id number] TRIGLYCERID E LOWER AGENT 1 capsule TWICE DAILY 1 capsule TWICE DAILY (route: oral) Med Classific ation: Cardiovas cular Therapy Agents furosemide 40 mg tablet 2023-07 00:00: 00 Yes [id number] FLUID RETENTION Per instruc tions TWICE DAILY Per instructio ns TWICE DAILY (route: oral) Med Classific ation: Cardiovas cular Therapy Agents gabapentin 100 mg capsule 2023-07 00:00: 00 02-17 23:59 :00 No [id number] LEG PAIN Per instruc tions TWICE DAILY Per instructio ns TWICE DAILY (route: oral) Med Classific ation: Central Nervous System Agents I-Caps 280 mg-10 mg-2 mg capsule 2023-07 00:00: 00 Yes [id number] EYE HEALTH 1 capsule ONCE DAILY 1 capsule ONCE DAILY (route: oral) Med Classific ation: Electroly te Balance-N utritiona l Products latanoprost 0.005 % eye drops 2023-07 00:00: 00 Yes [id number] EYE PRESSURE 1 drops AT BEDTIME 1 drops AT BEDTIME (route: ophthalmic (eye)) Med Classific ation: Ophthalmi c Agents mecobalamin (vitamin B12) 1,000 mcg disintegrat ing tablet,subl ingual 2023-07 00:00: 00 Yes [id number] SUPPLEMENT 1 tablet ONCE DAILY 1 tablet ONCE DAILY (route: sublingual ) Med Classific ation: Electroly te Balance-N utritiona l Products melatonin 5 mg tablet 2023-07 00:00: 00 Yes [id number] DEMENTIA/SL EEP 1 tablet AT BEDTIME 1 tablet AT BEDTIME (route: oral) Med Classific ation: Central Nervous System Agents memantine 10 mg tablet 2023-07 00:00: 00 Yes [id number] DEMENTIA 1 tablet TWICE DAILY 1 tablet TWICE DAILY (route: oral) Med Classific ation: Cognitive Disorder Therapy montelukast 10 mg tablet 2023-07 00:00: 00 Yes [id number] ALLERGIES 1 tablet ONCE DAILY 1 tablet ONCE DAILY (route: oral) Med Classific ation: Respirato ry Therapy Agents spironolact one 50 mg tablet 2023-07 00:00: 00 Yes [id number] HYPERTENSIO N 1 tablet ONCE DAILY 1 tablet ONCE DAILY (route: oral) Med Classific ation: Cardiovas cular Therapy Agents Vitamin D3 50 mcg (2,000 unit) capsule 2023-07 00:00: 00 Yes [id number] SUPPLEMENT/ VITAMIN D DEF 1 capsule ONCE DAILY 1 capsule ONCE DAILY (route: oral) Med Classific ation: Electroly te Balance-N utritiona l Products silver sulfadiazin e 1 % topical cream 2023-07 00:00: 00 10-19 00:00 :00 No [id number] CELLULITIS WOUND TO LLE Per instruc tions ONCE DAILY Per instructio ns ONCE DAILY (route: topical) Med Classific ation: Dermatolo gical doxycycline monohydrate 100 mg capsule 08-24 00:00: 00 09-07 23:59 :00 No [id number] POSSIBLE INFECTION IN LEG WOUND 1 capsule TWICE DAILY 1 capsule TWICE DAILY (route: oral) Med Classific ation: Anti-Infe ctive Agents gabapentin 100 mg capsule 2023-07 00:00: 00 04-21 23:59 :00 No [id number] LEG PAIN Per instruc tions TWICE DAILY Per instructio ns TWICE DAILY (route: oral) Med Classific ation: Central Nervous System Agents silver sulfadiazin e 1 % topical cream 03-02 00:00: 00 Yes [id number] BLE WOUNDS 1 cm ONCE DAILY 1 cm ON CE DAILY (route: topical) Med Classific ation: Dermatolo gical gabapentin 100 mg capsule 2023-07 00:00: 00 Yes [id number] LEG PAIN Per instruc tions TWICE DAILY Per instructio ns TWICE DAILY (route: oral) Med Classific ation: Central Nervous System Agents Immunizations Ordered Immunization Name Filled Immunization Name Date Status Comments Refusal Reason INFLUENZA, TIV (INACTIVATED) 2024-04-23 00:00:00 PNEUMOCOCCAL (PPV), PPV 2015-06-08 00:00:00 Vital Signs Vital Name Observation Time Observation Value Commen ts Temperature 2025-05-11 12:21:00.000 97.7 [degF] Temperature 2025-05-07 15:44:00.000 97.8 [degF] Temperature 2025-04-30 12:26:00.000 97.3 [degF] Pulse 2025-05-11 12:21:00.000 61 /min Pulse 2025-05-07 15:44:00.000 62 /min Pulse 2025-04-30 12:26:00.000 69 /min O2 Saturation (%) 2025-05-11 12:21:00.000 96 % O2 Saturation (%) 2025-05-07 15:44:00.000 99 % O2 Saturation (%) 2025-04-30 12:26:00.000 97 % Respirations 2025-05-11 12:21:00.000 18 /min Respirations 2025-05-07 15:44:00.000 18 /min Respirations 2025-04-30 12:26:00.000 17 /min Systolic Blood Pressure 2025-05-11 12:21:00.000 140 mm [Hg] Systolic Blood Pressure 2025-05-07 15:44:00.000 124 mm [Hg] Systolic Blood Pressure 2025-04-30 12:26:00.000 130 mm [Hg] Diastolic Blood Pressure 2025-05-11 12:21:00.000 60 mm [Hg] Diastolic Blood Pressure 2025-05-07 15:44:00.000 72 mm [Hg] Diastolic Blood Pressure 2025-04-30 12:26:00.000 84 mm [Hg] Plan of Treatment Planned Activity Planned Date Details Comments Future Scheduled Test SKILLED NU RSE/THERAPY TO ADMINISTER AND INSTRUCT PATIENT/CAREGIVER ON WOUND CARE TO BLE SKIN TEARS PER CLEAN/ASEPTIC TECHNIQUE. REMOVE OLD DRESSING. CLEANSE WITH NORMAL SALINE OR WOUND CLEANSER OR SOAP AND WATER. PAT DRY WITH GAUZE OR ALLOW TO AIR DRY. APPLY SILVER CREAM TO WOUND BED, COVER WITH NONADHERENT PAD, WRAP WITH ROLLED GAUZE AND SECURE WITH TAPE. WOUND CARE TO BE PERFORMED EVERY DAY AND PRN FOR SOILAGE OR DISLODGEMENT. DISCONTINUE WOUND CARE, ASSESSMENT, AND SUPPLIES WHEN WOUND HEALS. PATIENT/CAREGIVER TO PERFORM WOUND CARE IN AGENCY ABSENCE AFTER APPROPRIATE RETURN DEMONSTRATION. SKILLED NURSE MAY ADD TWO PRN VISITS FOR ASSESSMENT AND MANAGEMENT OF WOUND OR DRESSING COMPLICATIONS [code = SKILLED NURSE/THERAPY TO ADMINISTER AND INSTRUCT PATIENT/CAREGIVER ON WOUND CARE TO BLE SKIN TEARS PER CLEAN/ASEPTIC TECHNIQUE. REMOVE OLD DRESSING. CLEANSE WITH NORMAL SALINE OR WOUND CLEANSER OR SOAP AND WATER. PAT DRY WITH GAUZE OR ALLOW TO AIR DRY. APPLY SILVER CREAM TO WOUND BED, COVER WITH NONADHERENT PAD, WRAP WITH ROLLED GAUZE AND SECURE WITH TAPE. WOUND CARE TO BE PERFORMED EVERY DAY AND PRN FOR SOILAGE OR DISLODGEMENT. DISCONTINUE WOUND CARE, ASSESSMENT, AND SUPPLIES WHEN WOUND HEALS. PATIENT/CAREGIVER TO PERFORM WOUND CARE IN AGENCY ABSENCE AFTER APPROPRIATE RETURN DEMONSTRATION. SKILLED NURSE MAY ADD TWO PRN VISITS FOR ASSESSMENT AND MANAGEMENT OF WOUND OR DRESSING COMPLICATIONS] Future Scheduled Test SKILLED NU RSE TO INSTRUCT PATIENT/CAREGIVER ON WHAT IS HYPERTENSION, HOW TO CHECK HIS/HER BLOOD PRESSURE, AND STRATEGIES TO USE TO CONTROL BLOOD PRESSURE SUCH MONITORING BP, ENGAGING IN PHYSICAL ACTIVITY AIMING FOR 150 MINUTES SPREAD THROUGHOUT THE WEEK. [code = SKILLED NURSE TO INSTRUCT PATIENT/CAREGIVER ON WHAT IS HYPERTENSION, HOW TO CHECK HIS/HER BLOOD PRESSURE, AND STRATEGIES TO USE TO CONTROL BLOOD PRESSURE SUCH MONITORING BP, ENGAGING IN PHYSICAL ACTIVITY AIMING FOR 150 MINUTES SPREAD THROUGHOUT THE WEEK.] Future Scheduled Test HOME HEALT H NURSE WILL INSTRUCT THE PATIENT/CAREGIVER ABOUT DEMENTIA INCLUDING CHARACTERISTICS OF DISEASE PROCESS, POSSIBLE COMPLICATIONS, AND SAFETY MEASURES ASSOCIATED WITH ALTERED MENTAL STATUS. [code = HOME HEALTH NURSE WILL INSTRUCT THE PATIENT/CAREGIVER ABOUT DEMENTIA INCLUDING CHARACTERISTICS OF DISEASE PROCESS, POSSIBLE COMPLICATIONS, AND SAFETY MEASURES ASSOCIATED WITH ALTERED MENTAL STATUS.] Future Scheduled Test SKILLED NU RSE TO INSTRUCT ON URINARY INCONTINENCE INCLUDING CAUSES AND MANAGEMENT STRATEGIES. [code = SKILLED NURSE TO INSTRUCT ON URINARY INCONTINENCE INCLUDING CAUSES AND MANAGEMENT STRATEGIES.] Future Scheduled Test THE CER TIFYING PHYSICIAN, ASSOCIATED PHYSICIAN, NPP OR PA WITHIN THE SAME GROUP MAY APPROVE AND SIGN THE ORDER (ON ANY PAGE) ATTESTING THAT THE COMPREHENSIVE OUTCOME ASSESSMENTS, EVALUATIONS, AND HOME HEALTH CERTIFICATION PLANS SUPPORT HOMEBOUND STATUS. HOME HEALTH WEB-PORTAL DOCUMENTATION ACCESSED BY THE PHYSICIAN MUST BE INCORPORATED INTO THE MEDICAL RECORD TO CORROBORATE THE PHYSICIAN, NPP, OR PA S F2F ENCOUNTER TO SUPPORT ELIGIBILITY FOR HOME [...] RECORD TO CORROBORATE THE PHYSICIAN, NPP, OR PA S F2F ENCOUNTER TO SUPPORT ELIGIBILITY FOR HOME [...] BE CONSULTING ON THE CERTIFIED CARE PLAN: DR. SAEED HARRIS AND ANYONE COVERING IN THEIR ABSENCE [code = EACH ORDERED IN-HOME OR TELEHEALTH [...] BE CONSULTING ON THE CERTIFIED CARE PLAN: DR. SAEED HARRIS AND ANYONE COVERING IN THEIR ABSENCE] Goal 2024-08-21 Patient Goal - S OC 06/25/24: TO HEAL MY WOUND Goal 2025-02-16 Patient Goal - S OC 06/25/24: TO HEAL MY WOUND RECERT 08/21/23: TO HEAL WOUND RECERT 10/19/24: TO STAY IN MY OWN HOME RECERT 12/21/24: TO KEEP MY LEGS HEALED Goal 2024-12-21 Patient Goal - S OC 06/25/24: TO HEAL MY WOUND RECERT 08/21/23: TO HEAL WOUND RECERT 10/19/24: TO STAY IN MY OWN HOME Goal 2024-10-19 Patient Goal - S OC 06/25/24: TO HEAL MY WOUND RECERT 08/21/23: TO HEAL WOUND Goal Patient Goal - S OC 06/25/24: TO HEAL MY WOUND RECERT 08/21/23: TO HEAL WOUND RECERT 10/19/24: TO STAY IN MY OWN HOME RECERT 12/21/24: TO KEEP MY LEGS HEALED RECERT 02/16/25: NO UPDATES RECERT 04/20/25: TO HEAL WOUNDS TO LEGS Goal 2025-04-20 Patient Goal - S OC 06/25/24: TO HEAL MY WOUND RECERT 08/21/23: TO HEAL WOUND RECERT 10/19/24: TO STAY IN MY OWN HOME RECERT 12/21/24: TO KEEP MY LEGS HEALED RECERT 02/16/25: NO UPDATES Goal Provider Goal - PATIENT/CAREGIVER WILL TEACH BACK/VERBALIZE WOUND CARE. WOUND STATUS WILL IMPROVE EVIDENCED BY DECREASE IN SIZE / DRAINAGE OF WOUND, NO SIGNS AND SYMPTOMS OF INFECTION/ DECREASED PAIN/HEALING PROGRESS BY EOE. Goal Provider Goal - PATIENT/CAREGIVER WILL INDEPENDENTLY DEMONSTRATE HOW TO CHECK HIS/HER OWN BP AND VERBALIZE WHAT STRATEGIES CAN ASSIST TO CONTROL BLOOD PRESSURE. Goal Provider Goal - PATIENT/CAREGIVER WILL DEMONSTRATE REDUCED SUBJECTIVE LEVELS OF STRESS AND DEMONSTRATE INCREASED SAFETY IN THE HOME WITH MAXIMAL FUNCTIONAL TASK ENGAGEMENT BY END OF EPISODE. Goal Provider Goal - PATIENT/CAREGIVER WILL INDEPENDENTLY DEMONSTRATE STRATEGIES TO MANAGE INCONTINENCE AND PROBLEMS THAT CAN DEVELOP FROM BEING INCONTINENT. Goal Provider Goal - A PLAN OF CARE WILL BE ESTABLISHED THAT MEETS ALL PATIENT'S LONG-TERM NEEDS AND COUNTER SIGNED BY PHYSICIAN. Goal [...] FROM ALTERNATE PHYSICIANS IN A TIMELY MANNER. Encounters Start Date/Time End Date/Time Encounter Type Admission Type Attending [facility] Care Department Encounter ID Discharge Date Discharge Status Discharge Condition Discharge Reason Percent Goals Met 2025-04-21 00:00:00 2025-06-19 00:00:00 Outpatient RECERTIFIC FIORELLA NINOMEGHANPURNIMA [facility] [id number] 50.00
== END 2025-05-11 16:04 | disposition home or self-care (01) ==
LOC: CHSIMG 16:04
PROVIDERS: PCP Internal Medicine; Visit Provider Internal Medicine Interventional Cardiology
DX: I48.0 Paroxysmal atrial fibrillation (principal); Z95.0 Presence of cardiac pacemaker; I50.30 Unspecified diastolic (congestive) heart failure; R93.1 Abnormal findings on diagnostic imaging of heart and coronary circulation
CPT/HCPCS: C8929

== ENCOUNTER 2025-06-14 14:20 | Outpatient (CLI) | payer MEDICARE, SELFPAY ==
[2025-06-14 14:53] LABS: Hematocrit 42.8 % (37.0-46.0); Hemoglobin 14.3 g/dL (12.4-15.3); Mean Corpuscular HGB Conc 33.4 g/dL (32-36); Mean Corpuscular Hemoglobin 31.2 pg (27.0-31.0); Mean Corpuscular Volume 93.2 fL (78.0-102.0); Platelet Count Result 270 K/mm3 (150-420); Red Blood Count 4.59 M/mm3 (4.70-6.10); White Blood Count 9.4 K/mm3 (4.8-10.8)
[2025-06-14 15:13] LABS: Albumin Level 4.6 g/dL (3.5-5.1); Anion Gap 13 mmol/L (4-12); Blood Urea Nitrogen 26 mg/dL (9-20); Calcium 9.8 mg/dL (8.4-10.2); Carbon Dioxide 26 mmol/L (22-30); Chloride 97 mmol/L (98-107); Estimated Glomerular Filt Rate 41; Glucose 133 mg/dL (65-110); Osmolality Calculated 288 mOsm/kg (285-295); Potassium 4.3 mmol/L (3.4-5.0); Sodium 136 mmol/L (137-145)
[2025-06-15 07:34] LABS: Parathyroid Intact 52.9 pg/mL (14.5-75.2)
== END 2025-06-14 14:21 | disposition home or self-care (01) ==
LOC: CHSLAB 14:22
PROVIDERS: PCP Internal Medicine; Visit Provider Internal Medicine Nephrology
DX: N18.31 Chronic kidney disease, stage 3a (principal)
CPT/HCPCS: 36415; 80069; 83970; 85027

== ENCOUNTER 2025-06-25 12:30 | Emergency (ER) | payer MEDICARE, SELFPAY ==
--- OUTSIDE RECORDS SUMMARY | 2024-11-19 03:50 | XMS_ITS ---
Author Organization [facility] Address [address] [place], [place] [id number] Care Team Providers Care Skein Inspector Name Role Phone TORIE ROB Unavailable [phone] Bryant Jain Unavailable Unavailable REASON FOR VISIT *General care Medications Medication SIG (Take, Route, Frequency, Duration) Notes Start Date End Date Status ergocalciferol 1.25 MG Oral Capsule ORAL ergocalciferol 1.25 MG Oral CapsuleOriginal Medicationergocalciferol 1.25 MG Oral Capsule *Reorder from [employer] for eRx and Interaction Alerts* 0 Unknown aspirin 81 MG Delayed Release Oral Tablet ORAL aspirin 81 MG Delayed Release Oral TabletOriginal Medicationaspirin 81 MG Delayed Release Oral Tablet *Reorder from [employer] for eRx and Interaction Alerts* 0 Unknown Ammonium Lactate 12 % Lotion 1 application Externally Twice a day 3 Active terazosin 10 MG Oral Capsule ORAL terazosin 10 MG Oral CapsuleOriginal Medicationterazosin 10 MG Oral Capsule *Reorder from [employer] for eRx and Interaction Alerts* 0 Unknown Melatonin 3 MG Oral Capsule ORAL melatonin 3 MG Oral CapsuleOriginal Medicationmelatonin 3 MG Oral Capsule *Reorder from [employer] for eRx and Interaction Alerts* 0 Unknown Encounters Encounter Location Date Provider Diagnosis [address] [id number] 11/19/2024 TORIE ROB Plan Of Treatment Next Appt Details Provider Name:TORIE DEWITT, 07/22/2025 01:10:00 PM, [address] [place], [place], [id number], History and Physical Notes * Examination Category Sub-Category Detail Notes Category Not es Vascular Posterior tibial pulse: Progress Notes * OLGAMANUELA CRUZ EDOB:1940 (84 yo M)Acc No.[id number]:11/19/2024 Patient: MANUELA GABRIEL Provider: Arun ROB :1940 A ge:84 Y S ex:Male Date:11/19/2024 Address:[address] [place], [place] [id number] Subjective: * Chief Complaints: * * General care * Medications: T akingAmmonium Lactate 12 % Lotion 1 application Externally Twice a day Taking Ammonium Lactate 12 % Lotion 1 application Externally Twice a day UnknownMelatonin 3 MG Oral Capsule ORAL , Notes to Pharmacist: melatonin 3 MG Oral CapsuleOriginal Medicationmelatonin 3 MG Oral Capsule *Reorder from [facility] for eRx and Interaction Alerts*aspirin 81 MG Delayed Release Oral Tablet ORAL , Notes to Pharmacist: aspirin 81 MG Delayed Release Oral TabletOriginal Medicationaspirin 81 MG Delayed Release Oral Tablet *Reorder from [facility] for eRx and Interaction Alerts*ergocalciferol 1.25 MG Oral Capsule ORAL , Notes to Pharmacist: ergocalciferol 1.25 MG Oral CapsuleOriginal Medicationergocalciferol 1.25 MG Oral Capsule *Reorder from [facility] for eRx and Interaction Alerts*terazosin 10 MG Oral Capsule ORAL , Notes to Pharmacist: terazosin 10 MG Oral CapsuleOriginal Medicationterazosin 10 MG Oral Capsule *Reorder from [facility] for eRx and Interaction Alerts*Unknown Melatonin 3 MG Oral Capsule ORAL , Notes to Pharmacist: melatonin 3 MG Oral CapsuleOriginal Medicationmelatonin 3 MG Oral Capsule *Reorder from [facility] for eRx and Interaction Alerts*Unknown aspirin 81 MG Delayed Release Oral Tablet ORAL , Notes to Pharmacist: aspirin 81 MG Delayed Release Oral TabletOriginal Medicationaspirin 81 MG Delayed Release Oral Tablet *Reorder from [facility] for eRx and Interaction Alerts*Unknown ergocalciferol 1.25 MG Oral Capsule ORAL , Notes to Pharmacist: ergocalciferol 1.25 MG Oral CapsuleOriginal Medicationergocalciferol 1.25 MG Oral Capsule *Reorder from [employer] for eRx and Interaction Alerts*Unknown terazosin 10 MG Oral Capsule ORAL , Notes to Pharmacist: terazosin 10 MG Oral CapsuleOriginal Medicationterazosin 10 MG Oral Capsule *Reorder from [employer] for eRx and Interaction Alerts* * Electronic signature of BUBBA ROB DPM on 06/25/2025 at 12:32 PM TAX EXAMINING TECHNICIAN Sign off status: Pending * Provider: Arun ROB Date: 0 11/19/2024 Generated for Ascencion parr/Juan Carlos/Buffy on: 1 08/26/2024 12:32 PM TAX EXAMINING TECHNICIAN
--- OUTSIDE RECORDS SUMMARY | 2025-03-04 08:40 | XMS_ITS ---
Author Organization [facility] Address [address] [place], [place] [id number] Care Team Providers Care Teacher Music Name Role Phone TORIE ROB Unavailable [phone] Bryant Jain Unavailable Unavailable Allergies No Known Allergies REASON FOR VISIT *General care Medications Medication SIG (Take, Route, Frequency, Duration) Notes Start Date End Date Status ergocalciferol 1.25 MG Oral Capsule ORAL ergocalciferol 1.25 MG Oral CapsuleOriginal Medicationergocalciferol 1.25 MG Oral Capsule *Reorder from [employer] for eRx and Interaction Alerts* 0 Unknown aspirin 81 MG Delayed Release Oral Tablet ORAL aspirin 81 MG Delayed Release Oral TabletOriginal Medicationaspirin 81 MG Delayed Release Oral Tablet *Reorder from [employer] for eRx and Interaction Alerts* 0 Unknown terazosin 10 MG Oral Capsule ORAL terazosin 10 MG Oral CapsuleOriginal Medicationterazosin 10 MG Oral Capsule *[facility] and Interaction Alert[facility]* 0 Unknown Melatonin 3 MG Oral Capsule ORAL melatonin 3 MG Oral CapsuleOriginal Medicationmelatonin 3 MG Oral Capsule *Reorder from [employer] for eRx and Interaction Alerts* 0 Unknown Ammonium Lactate 12 % Lotion 1 application Externally Twice a day 3 Active Social History Social History Additional Details Category Social Info Options Details Migrated Social History Migrated Social History History of tobacco use : , Smoking Status : Never smoked Vital Signs Height 70.00 in 03/04/2025 Weight 190 lbs 03/04/2025 BMI 27.26 kg/m2 03/04/2025 Height-cm 177.80 cm 03/04/2025 Weight-kg 86.18 kg 03/04/2025 Encounters Encounter Location Date Provider Diagnosis [address] [id number] 03/04/2025 TORIE ROB Tinea unguium B35.1 ; Pain in right toe(s) M79.674 ; Pain in left toe(s) M79.675 and Atherosclerosis of chil[place] arteries of extremities with intermittent claudication, bilateral legs I70.213 Assessments Encounter Date Diagnosis (ICD Code) Assessment Notes Treatment Notes Treatment Clinical Notes Section Notes 03/04/2025 Tinea unguium (ICD-10 - B35.1) FUNGAL TOENAILS: Discussed various treatment options for fungal toenails including debridement, topical antifungals, oral antifungals, toenail avulsion, or toenail matrixectomy. 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 NAIL DEBRIDEMENT: Nails 1-5 Bilateral were debrided extensively with nail nippers and emery board, reducing length and girth to pink healthy tissue with any subungual debris and necrotic tissue removed Next Appt Details Follow Up: 10-12 Weeks, Reas on: At Risk Foot care, sooner if problems arise Provider Name:TORIE DEWITT, 07/22/2025 01:10:00 PM, [address] [place] [address], [id number], History and Physical Notes * HPI (History of Present Illness) Category Sub-Category Detail Notes Category Not es HPI General care Patient presents to the office for at risk foot care. Patient states that their nails are thickened, elongated and painful. Patient states that it is aggravated by shoe gear. Onset is gradual. Patient denies being diabetic., Patient denies taking blood thinners., Date last seen by Dr. Jain was 01/2025., Initials nd Examination Category Sub-Category Detail Notes Category Not es Dermatologic Skin findings: Skin is thin, at rophic and lacking pedal hair Nail pathology: Nails 1, 2, 3, 4, an d 5 bilateral are elongated, thick, discolored, and dystrophic with subungual debris. They are painful to palpation Neurologic Gross sensation Gross sensation is intact to light touch Vascular Dorsalis pedis pulse: 1/4 bilateral Edema: No edema, bilateral Capillary refill: greater than 3 secon ds Posterior tibial pulse: 0/4 bilateral Musculoskeletal Muscle Strength Muscle strength is 5/5 in regards to dorsiflexion, plantarflexion, inversion, and eversion in bilateral lower extremities Constitutional Constitutional The patient is a wake, alert, well developed, well groomed and well nourished Progress Notes * MANUELA FERRARI EDOB:1940 (84 yo M)Acc No.[id number]:03/04/2025 Patient: MANUELA GABRIEL Provider: Arun ROB :1940 A ge:84 Y S ex:Male Date:03/04/2025 Address:[address] [place] [address] Subjective: * Chief Complaints: * * General care * HPI: H PI: General care P atient presents to the office for at risk foot care. Patient states that their nails are thickened, elongated and painful. Patient states that it is aggravated by shoe gear. Onset is gradual. Patient denies being diabetic., Patient denies taking blood thinners., Date last seen by Dr. Jain was 01/2025., Initials nd. * ROS: G eneral / Constitutional: Patient denies w eakness. R espiratory: Patient denies c hronic cough, shortness of breath, sputum production. C ardiovascular: Patient denies c hest pain, history of [place], irregular heartbeat. M usculoskeletal: Patient denies a rthritis, joint stiffness. ? P eripheral Vascular: Patient denies b lanching of skin, cold extremities, decreased sensation in extremities. S kin: Patient complains of d ry skin, fungal nails, nail changes.? N eurologic: Patient denies d izziness, gait abnormality, headache. * Medical History: Denies Past Medical History No Medical History Documented Medical History Verified * Surgical History: Denies Past Surgical History. Surgical History verified. * Hospitalization/Major Diagno stic Procedure: Denies Past Hospitalization. Hospitalization Verified. * Family History: F ather: PRN - Father: . M other: PRN - Mother: :: Arthritis,,known absent , :: CHF,,known absent , :: Diabetes,,known absent , :: Hypertension,,known absent . B rother: SIB - Brother: :: CHF,,known absent . S ister: SIB - Sister: , :: CHF,,known absent , :: Cancer,,known absent .?Family History Verified.. * Social History: M igrated Social History: M igrated Social History: History of tobacco use : , Smoking Status : Never smoked. Social History Verified. * Medications: T akingAmmonium Lactate 12 % Lotion 1 application Externally Twice a day Taking Ammonium Lactate 12 % Lotion 1 application Externally Twice a day UnknownMelatonin 3 MG Oral Capsule ORAL , Notes to Pharmacist: melatonin 3 MG Oral CapsuleOriginal Medicationmelatonin 3 MG Oral Capsule *Reorder from [facility] for eRx and Interaction Alerts*aspirin 81 MG Delayed Release Oral Tablet ORAL , Notes to Pharmacist: aspirin 81 MG Delayed Release Oral TabletOriginal Medicationaspirin 81 MG Delayed Release Oral Tablet *Reorder from [facility] for eRx and Interaction Alerts*ergocalciferol 1.25 MG Oral Capsule ORAL , Notes to Pharmacist: ergocalciferol 1.25 MG Oral CapsuleOriginal Medicationergocalciferol 1.25 MG Oral Capsule *Reorder from [facility] for eRx and Interaction Alerts*terazosin 10 MG Oral Capsule ORAL , Notes to Pharmacist: terazosin 10 MG Oral CapsuleOriginal Medicationterazosin 10 MG Oral Capsule *Reorder from [facility] for eRx and Interaction Alerts*Medication List reviewed and reconciled with the patientUnknown Melatonin 3 MG Oral Capsule ORAL , Notes to Pharmacist: melatonin 3 MG Oral CapsuleOriginal Medicationmelatonin 3 MG Oral Capsule *Reorder from [facility] for eRx and Interaction Alerts*Unknown aspirin 81 MG Delayed Release Oral Tablet ORAL , Notes to Pharmacist: aspirin 81 MG Delayed Release Oral TabletOriginal Medicationaspirin 81 MG Delayed Release Oral Tablet *Reorder from [facility] for eRx and Interaction Alerts*Unknown ergocalciferol 1.25 MG Oral Capsule ORAL , Notes to Pharmacist: ergocalciferol 1.25 MG Oral CapsuleOriginal Medicationergocalciferol 1.25 MG Oral Capsule *Reorder from [facility] for eRx and Interaction Alerts*Unknown terazosin 10 MG Oral Capsule ORAL , Notes to Pharmacist: terazosin 10 MG Oral CapsuleOriginal Medicationterazosin 10 MG Oral Capsule *Reorder from [facility] for eRx and Interaction Alerts*Medication List reviewed and reconciled with the patient * Allergies: N .K.D.AradhaAllergies Verified. Objective: * Vitals: W t: 190 lbs, Wt-k.18 kg, Ht: 70.00 in, Ht-cm: 177.80 cm, BMI: 27.26 Index, Body Surface Area: 2.06. * Examination: C onstitutional: Constitutional T he patient is awake, alert, well developed, well groomed and well nourished. D ermatologic: Skin findings: S kin is thin, atrophic and lacking pedal hair. Nail pathology: N ails 1, 2, 3, 4, and 5 bilateral are elongated, thick, discolored, and dystrophic with subungual debris. They are painful to palpation. ? V ascular: Dorsalis pedis pulse: 1 /4 b ilateral. Posterior tibial pulse: 0 /4 b ilateral. Capillary refill: g reater than 3 seconds. Edema: N o edema, bilateral. N eurologic: Gross sensation G ross sensation is intact to light touch.? M usculoskeletal: Muscle Strength M uscle strength is 5/5 in regards to dorsiflexion, plantarflexion, inversion, and eversion in bilateral lower extremities. ? Assessment: * Assessment: 1. 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 P ain in right toe(s) - M79.674? 3. P ain in left toe(s) - M79.675 4 . 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 * Procedure Codes: * Electronic signature of BUBBA ROB DPM on 06/25/2025 at 12:31 PM REAL ESTATE EXECUTIVE ASSISTANT Sign off status: Pending * Provider: Arun ROB Date: 0 03/04/2025 Generated for [employer] parr/Juan Carlos/Buffy on: 1 08/26/2024 12:31 PM REAL ESTATE EXECUTIVE ASSISTANT
--- OUTSIDE RECORDS SUMMARY | 2025-05-13 06:30 | XMS_ITS ---
Author Organization [facility] Address [address] [place], [place] [id number] Care Team Providers Care Service Learning Coordinator Name Role Phone TORIE ROB Unavailable [phone] Bryant Jain Unavailable Unavailable Allergies No Known Allergies REASON FOR VISIT *General care Medications Medication SIG (Take, Route, Frequency, Duration) Notes Start Date End Date Status Ammonium Lactate 12 % Lotion 1 application Externally Twice a day 3 Active Melatonin 3 MG Oral Capsule ORAL melatonin 3 MG Oral CapsuleOriginal Medicationmelatonin 3 MG Oral Capsule *Reorder from [employer] for eRx and Interaction Alerts* 0 Unknown terazosin 10 MG Oral Capsule ORAL terazosin 10 MG Oral CapsuleOriginal Medicationterazosin 10 MG Oral Capsule *Reorder from [employer] for eRx and Interaction Alerts* 0 Unknown aspirin 81 MG Delayed Release Oral Tablet ORAL aspirin 81 MG Delayed Release Oral TabletOriginal Medicationaspirin 81 MG Delayed Release Oral Tablet *Reorder from [employer] for eRx and Interaction Alerts* 0 Unknown ergocalciferol 1.25 MG Oral Capsule ORAL ergocalciferol 1.25 MG Oral CapsuleOriginal Medicationergocalciferol 1.25 MG Oral Capsule *Reorder from [employer] for eRx and Interaction Alerts* 0 Unknown Social History Social History Additional Details Category Social Info Options Details Migrated Social History Migrated Social History History of tobacco use : , Smoking Status : Never smoked Vital Signs Height 70.00 in 05/13/2025 Weight 211 lbs 05/13/2025 BMI 30.27 kg/m2 05/13/2025 Height-cm 177.8 cm 05/13/2025 Weight-kg 95.71 kg 05/13/2025 Encounters Encounter Location Date Provider Diagnosis [address] [id number] 05/13/2025 TORIE ROB Tinea unguium B35.1 ; Pain in right toe(s) M79.674 ; Pain in left toe(s) M79.675 ; 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 Check and protect LE bilateral daily. Call if any changes or concerns. 05/13/2025 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, limited to breakdown of skin (ICD-10 - L97.511) Plan Of Treatment Treatment Notes Assessment Notes Tinea unguium FUNGAL TOENAILS: Discussed various treatment options for fungal toenails including debridement, topical antifungals, oral antifungals, toenail avulsion, or toenail matrixectomy. NAIL DEBRIDEMENT: Nails 1-5 Bilateral were debrided extensively with nail nippers and emery board, reducing length and girth to pink healthy tissue with any subungual debris and necrotic tissue removed Atherosclerosis of pauma ar teries of extremities with intermittent claudication, bilateral legs Patient educated on risks and aggravatin g factors of PVD, including conservative treatment options such as a diet and exercise regimen to aid in slowing progression of vascular disease. Check and protect LE bilateral daily. Call if any changes or concerns. Next Appt Details Follow Up: 10-12 Weeks, Reas on: At Risk Foot care, sooner if problems arise Provider Name:TORIE DEWITT, 07/22/2025 01:10:00 PM, [address] [place] [address], [phone], History and Physical Notes * HPI (History of Present Illness) Category Sub-Category Detail Notes Category Not es HPI General care Patient presents to the office for at risk foot care. Patient states that their nails are thickened, elongated and painful. Patient states that it is aggravated by shoe gear. Onset is gradual. Patient denies being diabetic., Patient is taking prescription blood thinners., Date last seen by Dr. Jain was 04/2025., Initials nd Examination Category Sub-Category Detail Notes [...] * MANUELA FERRARI EDOB:1940 (84 yo M)Acc No.[id number]:05/13/2025 Patient: MANUELA GABRIEL Provider: Arun ROB :1940 A ge:84 Y S ex:Male Date:05/13/2025 Address:[address] [place] [address] Subjective: * Chief Complaints: * * General care * HPI: H PI: General care P baron presents to the office for at risk foot care. Patient states that their nails are thickened, elongated and painful. Patient states that it is aggravated by shoe gear. Onset is gradual. Patient denies being diabetic., Patient is taking prescription blood thinners., Date last seen by Dr. Jain was 04/2025., Initials nd. * ROS: G eneral / Constitutional: Patient denies w eakness. R espiratory: Patient denies c hronic cough, shortness of breath, sputum production. C ardiovascular: Patient denies c hest pain, history of AK, irregular heartbeat. M usculoskeletal: Patient denies a [...] Medicationmelatonin 3 MG Oral Capsule *Reorder from [facility] for eRx and Interaction Alerts*aspirin 81 MG Delayed Release Oral Tablet ORAL , Notes to Pharmacist: aspirin 81 MG Delayed Release Oral TabletOriginal Medicationaspirin 81 MG Delayed Release Oral Tablet *Reorder from [facility] for eRx and Interaction Alerts*ergocalciferol 1.25 MG Oral Capsule ORAL , Notes to Pharmacist: ergocalciferol 1.25 MG Oral CapsuleOriginal Medicationergocalciferol 1.25 MG Oral Capsule *Reorder from [facility] for eRx and Interaction Alerts*terazosin 10 MG Oral Capsule ORAL , Notes to Pharmacist: terazosin 10 MG Oral CapsuleOriginal Medicationterazosin 10 MG Oral Capsule *Reorder from [facility] for eRx and Interaction Alerts*Medication List reviewed and reconciled with the patientUnknown Melatonin 3 MG Oral Capsule ORAL , Notes to Pharmacist: melatonin 3 MG Oral CapsuleOriginal Medicationmelatonin 3 MG Oral Capsule *Reorder from [facility] for eRx and Interaction Alerts*Unknown aspirin 81 MG Delayed Release Oral Tablet ORAL , Notes to Pharmacist: aspirin 81 MG Delayed Release Oral TabletOriginal Medicationaspirin 81 MG Delayed Release Oral Tablet *Reorder from [facility] for eRx and Interaction Alerts*Unknown ergocalciferol 1.25 MG Oral Capsule ORAL , Notes to Pharmacist: ergocalciferol 1.25 MG Oral CapsuleOriginal Medicationergocalciferol 1.25 MG Oral Capsule *Reorder from [facility] for eRx and Interaction Alerts*Unknown terazosin 10 MG Oral Capsule ORAL , Notes to Pharmacist: terazosin 10 MG Oral CapsuleOriginal Medicationterazosin 10 MG Oral Capsule *Reorder from [facility] for eRx and Interaction Alerts*Medication List reviewed and reconciled with the patient * Allergies: N .K.D.A.yesAllergies Verified. Objective: * Vitals: S hoe Size: 12, Wt: 211 lbs, Wt-k.71 kg, Ht: 70.00 in, Ht-cm: 177.8 cm, BMI: 30.27 Index, Body Surface Area: 2.17. * Examination: C onstitutional: Constitutional T he [...] extremities. ? Assessment: * Assessment: 1. T inea unguium - B35.1 (Primary) 2 . P ain in right toe(s) - M79.674? 3. P ain in left toe(s) - M79.675 4 . A therosclerosis of pauma arteries of extremities with intermittent claudication, bilateral legs - I70.213 5 . C hronic ulcer of great toe of right foot, limited to breakdown of skin - L97.511 Plan: * Treatment: 2. A therosclerosis of pauma arteries of extremities with intermittent claudication, bilateral legs Notes: Patient educated on risks and aggravating factors of PVD, including conservative treatment options such as a diet and exercise regimen to aid in slowing progression of vascular disease. Check and protect LE bilateral daily. Call if any changes or concerns. * Procedure Codes: 1 1721 DEBRIDE NAIL, 6 OR MORE, Modifiers: Q8 * Follow Up: 1 0-12 Weeks (Reason: At Risk Foot care, sooner if problems arise) Billing Information: * Visit Code: 83260 Office Visit, Est Pt., Level 3. Modifiers: 25 * Procedure Codes: 01368 DEBRIDE NAIL, 6 OR MORE. Modifiers: Q8 * Electronic signature of BUBBA ROB DPM on 06/25/2025 at 12:32 PM CUSTOMER ADVOCATE Sign off status: Pending * Provider: Arun ROB Date: 07/13/2024 Generated for [employer] parr/Juan Carlos/Ninoitting on: 08/26/2024 12:32 PM CUSTOMER ADVOCATE
--- NOTE | ~2025-06-25 | CT_ITS ---
CT HEAD NON-CONTRAST CT C-SPINE Clinical History: fall, possible head injury/ AMS Comparison: None Technique: Unenhanced axial images skull base to vertex. Coronal, sagittal reformats. Axial images thoracic inlet to skull base. Sagittal and coronal reformats. CT images acquired with automatic exposure control for dose reduction DLP: 681 mGy-cm Findings: Head: Age-related atrophy. Chronic white matter microvascular ischemic changes. Chronic infarct right basal ganglia. Sulci, ventricles: Unremarkable. No intracerebral hemorrhage. No evidence acute territorial infarct. No mass effect, midline shift, intra-/extra-axial fluid collection. Bony calvarium intact. Visualized paranasal sinuses: Clear. Mastoid air cells: Clear. C-spine: No acute fracture Grade 1 anterolisthesis C4 on 5, C7 on T1. Straightening of normal cervical lordosis. Moderate degenerative changes. Multilevel disc disease. Prevertebral soft tissues within normal limits. Visualized lung apices: Clear. Visualized thyroid: Unremarkable. No enlarged cervical nodes. IMPRESSION: HEAD: 1. No acute intracranial findings. C-SPINE: 1. No acute fracture. Reviewed, dictated and finalized at location R. ICE OFFICER IMPRESSION: HEAD: 1. No acute intracranial findings. C-SPINE: 1. No acute fracture.
--- OUTSIDE RECORDS SUMMARY | 2025-06-25 12:32 | XMS_ITS | Clinical Summary ---
Author Organization [facility] A Address [address] [place] [address] Care Team Providers Care Review Scheduling Coordinator Name Role Phone Bryant Jain MD Primary Care Provider [phone] Allergies Active Allergy Reactions Criticality Noted Date Comments Donepezil Agitation High 03/31/2024 Medications brimonidine (ALPHAGAN) 0.2 % ophthalmic solution Administer 1 drop into both eyes 2 (two) times a day Active cholecalcifero l 25 mcg (1,000 unit) tablet Take 1 tablet (1,000 Units total) by mouth daily Active cyanocobalamin (Vitamin B-12) 1,000 mcg tablet Take 1 tablet (1,000 mcg total) by mouth daily Active docusate sodium (COLACE) 100 mg capsule Take 1 capsule (100 mg total) by mouth 2 (two) times a day 02/26/[address] (CYMBALTA) 20 mg capsule Take 1 capsule (20 mg total) by mouth daily 01/19/20 24 Active fexofenadine (SLIM) 180 mg tablet Take 1 tablet (180 mg total) by mouth daily Active finasteride (PROSCAR) 5 mg tablet Take 1 tablet (5 mg total) by mouth daily Active furosemide (LASIX) 40 mg tablet Take 1 tablet (40 mg total) by mouth 2 (two) times a day 2 in the am and 1 in pm 03/29/20 24 Active memantine (NAMENDA) 10 mg tablet Take 1 tablet (10 mg total) by mouth 2 (two) times a day Active melatonin tablet Take 1 tablet (3 mg total) by mouth nightly 05/07/20 18 Active latanoprost (XALATAN) 0.005 % ophthalmic solution Administer 1 drop into both eyes nightly Active montelukast (SINGULAIR) 10 mg tablet Take 1 tablet (10 mg total) by mouth every evening 01/30/20 24 Active spironolactone (ALDACTONE) 50 mg tablet Take 1 tablet (50 mg total) by mouth every morning Active loratadine (CLARITIN) 10 mg tablet Take 1 tablet (10 mg total) by mouth daily Active Eliquis 2.5 mg tablet TAKE 1 TABLET BY MOUTH TWICE A DAY 60 tablet 11 06/14/20 25 Active Eliquis 2.5 mg tablet Take 1 tablet (2.5 mg total) by mouth 2 (two) times a day 60 tablet 11 04/10/20 24 025 Discontinued Active Problems No known active problems Encounters Date Type Department Care Team Description 06/14/2025 Telephone [place] [employer] Machine Operator [address] [place] [phone] Twila Escobedo MA disconnected monitor 04/13/2025 12:45 PM CDT Ancillary Procedure [facility] Operator at [address] [place] [address] Pacemaker 04/13/2025 12:45 PM CDT Office Visit [facility] Machine Operator at [address] [address] Sonido Spence MD Paroxysmal A-fib (HCC) (Primary Dx); Pacemaker from Last 3 Months Social History Tobacco Use Types Packs/Day Years Used Date Smoking Tobacco: Never Tobacco Cessation:Counseling Given: Not Answered Sex and Gender Information Value Date Recorded Sex Assigned at Not on file 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
--- OUTSIDE RECORDS SUMMARY | 2025-06-25 12:32 | XMS_ITS | Patient Health Record ---
Author Organization [facility] Address [address] [place], [place] [address] Care Team Providers Care Ham Clerk Name Role Phone TORIE ROB Unavailable [phone] Bryant Jain Unavailable Unavailable RODRIGONikole EVIE Unavailable [phone] Allergies No Known Allergies Reason For Referral No Information Medications Medication SIG (Take, Route, Frequency, Duration) Notes Start Date End Date Status Ammonium Lactate 12 % Lotion 1 application Externally Twice a day 3 Active Melatonin 3 MG Oral Capsule ORAL melatonin 3 MG Oral CapsuleOriginal Medicationmelatonin 3 MG Oral Capsule *Reorder from [facility] for eRx and Interaction Alerts* 0 Unknown terazosin 10 MG Oral Capsule ORAL terazosin 10 MG Oral CapsuleOriginal Medicationterazosin 10 MG Oral Capsule *Reorder from [facility] for eRx and Interaction Alerts* 0 Unknown aspirin 81 MG Delayed Release Oral Tablet ORAL aspirin 81 MG Delayed Release Oral TabletOriginal Medicationaspirin 81 MG Delayed Release Oral Tablet *Reorder from [facility] [facility] for eRx and Interaction Alerts* 0 Unknown ergocalciferol 1.25 MG Oral Capsule ORAL ergocalciferol 1.25 MG Oral CapsuleOriginal Medicationergocalciferol 1.25 MG Oral Capsule *[facility] and Interaction Alerts* 0 Unknown Immunizations Vaccine Route Administration Date Status Comme nts Influenza, high dose seasonal Unknown 04/15/2023 Admini stered Social History Social History Additional Details Category Social Info Options Details Migrated Social History Migrated Social History History of tobacco use : , Smoking Status : Never smoked Vital Signs Height-cm 177.8 cm 05/13/2025 Weight-kg 95.71 kg 05/13/2025 Height 70.00 in 05/13/2025 Weight 211 lbs 05/13/2025 BMI 30.27 kg/m2 05/13/2025 Encounters Encounter Location Date Provider Diagnosis [address] [id number] 03/04/2025 TORIE LIANE Tinea unguium B35.1 ; Pain in right toe(s) M79.674 ; Pain in left toe(s) M79.675 and Atherosclerosis of [place] arteries of extremities with intermittent claudication, bilateral legs I70.[address] [id number] 05/13/2025 TORIE LIANE Tinea unguium B35.1 ; Pain in right toe(s) M79.674 ; Pain in left toe(s) M79.675 ; Atherosclerosis of [place] arteries of extremities with intermittent claudication, bilateral legs I70.213 and 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, limited to breakdown of skin L97.[address] [id number] 08/27/2024 EVIE GALLEGOS Tinea unguium B35.1 ; Pain in right toe(s) M79.674 ; Pain in left toe(s) M79.675 and Atherosclerosis of [place] arteries of extremities with intermittent claudication, bilateral legs I70.213 Assessments Encounter Date Diagnosis (ICD Code) Assessment Notes Treatment Notes Treatment Clinical Notes Section Notes 08/27/2024 Tinea unguium (ICD-10 - B35.1) FUNGAL [...] in right toe(s) (ICD-10 - M79.674) 05/13/2025 Tinea unguium (ICD-10 - B35.1) FUNGAL [...] in left toe(s) (ICD-10 - M79.675) 03/04/2025 Pain in left toe(s) (ICD-10 - M79.675) 08/27/2024 Pain in left toe(s) (ICD-10 - M79.675) 08/27/2024 Atherosclerosis of [place] arteries of extremities with intermittent claudication, bilateral legs (ICD-10 - I70.213) 03/04/2025 Atherosclerosis of [place] arteries of extremities with intermittent claudication, bilateral legs (ICD-10 - I70.213) 05/13/2025 Atherosclerosis of [place] arteries of extremities with intermittent claudication, bilateral [...] skin (ICD-10 - L97.511) Plan Of Treatment Next Appt Details Provider Name:TORIE DEWITT, 07/22/2025 01:10:00 PM, [address] [place], [place], [id number], Insurance Providers Payer Name Payer Address Payer Phone Subscriber Number Group Number Insured Name Patient Relationship to Insured Coverage Start Date Coverage End Date Medicare Part B [place] [address] [place] [phone] [id number] MANUELA FERRARI Self - patient is the insured [facility] ([facility]) ATTN CLAIMS [address] [place] [address] [id number] MANUELA FERRARI Self - patient is the insured
--- OUTSIDE RECORDS SUMMARY | 2025-06-25 12:32 | XMS_ITS | Encounter Summary ---
Author Organization [facility] Address [facility] [place] [address] Care Team Providers Care Cable Installation Technician Name Role Phone Bryant Jain MD Primary Care Provider [phone] Jose Casas MD Unavailable [phone] Encounter Details Date Type Department Care Team (Late st Contact Info) Description 07/22/2016 Abstract [facility] [address] [place] [address] Jose Casas MD [address] [place] [address] Social History Tobacco Use Types Packs/Day Years Used Date Smoking Tobacco: Never Sex and Gender Information Value Date Recorded Sex Assigned at Male 09/02/2024 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 Legal Sex Male 10:25 PM CDT Gender Identity Not on file Sexual Orientation Not on file Occupation Industry Job Start Date Job End Date retired Not on file Not on file Not on file documented as of this encounter Plan of Treatment Not on file documented as of this encounter Visit Diagnoses Not on filedocumented in this encounter Care Teams Cable Installation Technician Relationship Specialty Start Date End Date Bryant Jain MD [address] [place] [phone] PCP - General INTERNAL MEDICINE 07/25/16 Jose Casas MD [address] [place] [phone] CARDIOVASCULAR DISEASE 07/25/16 documented as of this encounter
--- OUTSIDE RECORDS SUMMARY | 2025-06-25 12:32 | XMS_ITS | Clinical Summary ---
Author Organization [facility] Address [address] [place] [address] Phone Care Team Providers Care Boring Mill Operator Name Role Phone Bryant Jain MD Primary Care Provider [phone] Allergies Active Allergy Reactions Criticality Noted Date [...] Comments Blood Pressure 128/80 06/11/2022 1:37 PM MULTIGRAPHER Pulse 60 06/11/2022 1:37 PM MULTIGRAPHER Temperature 36.2 C (97.2 F) 06/11/2022 1:37 PM MULTIGRAPHER Respiratory Rate - - Oxygen Saturation - - Inhaled Oxygen Concentration - - Weight 103 kg (226 lb) 06/11/2022 1:37 PM MULTIGRAPHER Height 180.3 cm (5' 11) 06/11/2022 1:37 PM MULTIGRAPHER Body Mass Index 31.52 06/11/2022 1:37 PM MULTIGRAPHER Plan of Treatment Health Maintenance Due Date Last Done Comments Pneumococcal PPSV23/PCV13 65 + Years / Low and Medium Risk (2 of 3 - PCV20 or PCV21) 06/08/2016 06/08/2015 Influenza Vaccine (#1) 2025 2, 03/21/2018, 04/04/2017, Additional history exists Insurance MEDICARE [facility] Care Teams Boring Mill Operator Relationship Specialty Start Date End Date Bryant Jain MD [address] [place] [address] PCP - General Internal Medicine 11/23/21
--- OUTSIDE RECORDS SUMMARY | 2025-06-25 12:32 | XMS_ITS | Clinical Summary ---
Author Organization [facility] Address [address] [place] [address] Care Team Providers Care Smoking Tobacco Packer Hand Name Role Phone Bryant Jain MD Primary Care Provider [phone] Daphne Auguste MD Unavailable [phone] Source Comments [facility],non-owned Affiliates and Associated Physician Practices is amultiple site organization consisting of ambulatory clinics and hospital sitesin [place], [place], [place] and [place]. This disclosure is being madepursuant to the Care Everywhere program and may not contain all information available regarding this patient. Last updated 18.[facility] Allergies Active Allergy Reactions Criticality Noted Date [...] tablet by mouth 2 times daily Active dieco-4-jjwe ethyl esters (LOVAZA) 1 g capsule Take [...] 7:15 PM 11/10/2021 2:59 PM Care Teams Smoking Tobacco Packer Hand Relationship Specialty Start Date End Date Bryant Jain MD [address] [place], [place] [phone] PCP - General Internal Medicine 11/21/21 [place] [address] [address] [place] [id number] Cardiovascular Disease 12/19/21
--- OUTSIDE RECORDS SUMMARY | 2025-06-25 12:32 | XMS_ITS | Clinical Summary ---
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
--- OUTSIDE RECORDS SUMMARY | 2025-06-25 12:32 | XMS_ITS | Encounter Summary ---
Author Organization [facility] Address [facility] [place] [address] Care Team Providers Care Evaluation Advisor Name Role Phone Bryant Jain MD Primary Care Provider [phone] Jose Casas MD Unavailable [phone] Encounter Details Date Type Department Care Team (Late st Contact Info) Description 09/03/2016 Abstract [facility] [address] [place] [address] Jose Casas MD [address] [place] [address] Social History Tobacco Use Types Packs/Day Years Used Date Smoking Tobacco: Never Alcohol Use Standard Drinks/Week Comments No 0 (1 standard drink = 0.6 oz pur e alcohol) Sex and Gender Information Value Date Recorded Sex Assigned at Male 09/02/2024 12:52 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
[2025-06-25 12:44] VITALS: BP 147/76; PULSE 72; RESP 20; TEMP 36.7; O2SAT 100
--- OUTSIDE RECORDS SUMMARY | 2025-06-25 13:05 | XMS_ITS | Clinical Summary ---
Author Organization [facility] Address [address] [place] [address] Care Team Providers Care Chief Power Dispatcher Name Role Phone Bryant Jain MD Primary Care Provider [phone] Daphne Auguste MD Unavailable Source Comments [facility],non-owned Affiliates and Associated Physician Practices is amultiple site organization consisting of ambulatory clinics and hospital sitesin [place], [place], [place] and [place]. This disclosure is being madepursuant to the Care Everywhere program and may not contain all information available regarding this patient. Last updated 18.[facility] Allergies Active Allergy Reactions Criticality Noted Date [...] tablet by mouth 2 times daily Active pvhoy-1-vnla ethyl esters (LOVAZA) 1 g capsule Take [...] 7:15 PM 11/10/2021 2:59 PM Care Teams Chief Power Dispatcher Relationship Specialty Start Date End Date Bryant Jain MD [address] [place], [place] [phone] PCP - General Internal Medicine 11/21/21 [place] [address] [address] [place] [phone] Cardiovascular Disease 12/19/21
--- OUTSIDE RECORDS SUMMARY | 2025-06-25 13:05 | XMS_ITS | Encounter Summary ---
Author Organization [facility] Address [address] [place] [address] Care Team Providers Care Recovery Unit Operator Name Role Phone Bryant Jain MD Primary Care Provider [phone] Reason for Visit * Reason Onset Date Comments RE: remote monitor-[facility] 06/25/2025 Encounter Details Date Type Department Care Team (Late st Contact Info) Description 06/25/2025 Telephone [facility] Gasket Maker [address] [place] [phone] Twila Escobedo MA RE: remote monitor-[facility] Social History Tobacco Use Types Packs/Day Years Used Date Smoking Tobacco: Never Sex and Gender Information Value Date Recorded Sex Assigned at Not on file 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
--- OUTSIDE RECORDS SUMMARY | 2025-06-25 13:06 | XMS_ITS | Clinical Summary ---
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
--- OUTSIDE RECORDS SUMMARY | 2025-06-25 13:06 | XMS_ITS | Clinical Summary ---
Author Organization [facility] Address [address] [place] [address] Care Team Providers Care Smelter Charger Name Role Phone Bryant Jain MD Primary Care Provider [phone] Allergies Active Allergy Reactions Criticality Noted Date [...] Encounters Date Type Department Care Team Description 06/25/2025 Telephone [place] Social Media Intern [address] [place] [phone] Twila Escobedo MA RE: remote monitor-[employer] [facility] 06/14/2025 Telephone [place] [facility] Intern [address] [place] [phone] Twila Escobedo MA disconnected monitor 04/13/2025 12:45 PM CDT Ancillary Procedure [place] Social [facility] Intern at [address] [address] Pacemaker 04/13/2025 12:45 PM CDT Office Visit [place] Social [facility] Intern at [address] [address] Sonido Spence MD Paroxysmal A-fib (HCC) (Primary Dx); Pacemaker from Last 3 Months Social History Tobacco Use Types Packs/Day Years Used Date Smoking Tobacco: Never Tobacco Cessation:Counseling Given: Not Answered Sex and Gender Information Value Date Recorded Sex Assigned at Not on file Legal Sex Male 7:37 PM REAMER HAND Gender Identity Not on file Sexual [...] is attached to this Result Text in Flooring Mechanic 04/13/2025 [employer] [facility] in-office tablet check Sonido Spence MD CV CARDIAC SERVICES PROCEDU RES Final Result from Last 3 Months Insurance [facility]ARE [facility] MEDICARE SUPPLEMENT Member Subscriber Plan / Payer (Ef fective 2019-Present) Name:Damion Soni Relation to Subscriber:Self Name:Damion Soni Payer ID:[id number] Group ID:[id number] Type:COMMERCIAL Address: [address] [place] [id number] Care Teams Smelter Charger Relationship Specialty Start Date End Date Bryant Jain MD PCP - General Internal Medicine 03/05/24
--- OUTSIDE RECORDS SUMMARY | 2025-06-25 13:06 | XMS_ITS | Clinical Summary ---
Author Organization [facility] Address [address] [place] [address] Phone Care Team Providers Care Litharge Mill Operator Name Role Phone Bryant Jain MD Primary Care Provider [phone] Allergies Active Allergy Reactions Criticality Noted Date [...] Comments Blood Pressure 128/80 06/11/2022 1:37 PM THREADING MACHINE TENDER Pulse 60 06/11/2022 1:37 PM THREADING MACHINE TENDER Temperature 36.2 C (97.2 F) 06/11/2022 1:37 PM THREADING MACHINE TENDER Respiratory Rate - - Oxygen Saturation - - Inhaled Oxygen Concentration - - Weight 103 kg (226 lb) 06/11/2022 1:37 PM THREADING MACHINE TENDER Height 180.3 cm (5' 11) 06/11/2022 1:37 PM THREADING MACHINE TENDER Body Mass Index 31.52 06/11/2022 1:37 PM THREADING MACHINE TENDER Plan of Treatment Health Maintenance Due Date Last Done Comments Pneumococcal PPSV23/PCV13 65 + Years / Low and Medium Risk (2 of 3 - PCV20 or PCV21) 06/08/2016 06/08/2015 Influenza Vaccine (#1) 2025 2, 03/21/2018, 04/04/2017, Additional history exists [facility] Care Teams Litharge Mill Operator Relationship Specialty Start Date End Date Bryant Jain MD [address] [place] [address] PCP - General Internal Medicine 11/23/21
--- OUTSIDE RECORDS SUMMARY | 2025-06-25 13:06 | XMS_ITS | Encounter Summary ---
Author Organization [facility] Address [facility] [place] [address] Care Team Providers Care Access Analyst Name Role Phone Bryant Jain MD Primary Care Provider Jose Casas MD Unavailable [phone] Encounter Details Date Type Department Care Team (Late st Contact Info) Description 09/03/2016 Abstract [facility] [address] [place] [address] Jose Casas MD [address] [place] [address] Social History Tobacco Use Types Packs/Day Years Used Date Smoking Tobacco: Never Alcohol Use Standard Drinks/Week Comments No 0 (1 standard drink = 0.6 oz pur e alcohol) Sex and Gender Information Value Date Recorded Sex Assigned at Male 09/02/2024 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
--- OUTSIDE RECORDS SUMMARY | 2025-06-25 13:06 | XMS_ITS | Encounter Summary ---
Author Organization [facility] Address [facility] [place] [address] Care Team Providers Care Senior Technical Trainer Name Role Phone Bryant Jain MD Primary Care Provider [phone] Jose Casas MD Unavailable Encounter Details Date Type Department Care Team (Late st Contact Info) Description 07/22/2016 Abstract [facility] [address] [place] [address] Jose Casas MD [address] [place] [address] Social History Tobacco Use Types Packs/Day Years Used Date Smoking Tobacco: Never Sex and Gender Information Value Date Recorded Sex Assigned at Male 09/02/2024 12:52 PM SLD EDUCATIONAL AIDE Legal Sex Male 10:25 PM CDT Gender Identity Not on file Sexual Orientation Not on file Occupation Industry Job Start Date Job End Date retired Not on file Not on file Not on file documented as of this encounter Plan of Treatment Not on file documented as of this encounter Visit Diagnoses Not on filedocumented in this encounter Care Teams Senior Technical Trainer Relationship Specialty Start Date End Date Bryant Jain MD [address] [place] [phone] PCP - General INTERNAL MEDICINE 07/25/16 Jose Casas MD [address] [place] [address] CARDIOVASCULAR DISEASE 07/25/16 documented as of this encounter
--- NOTE | 2025-06-25 13:40 | ED.FALL ---
HPI - Fall General Chief Complaint: Fall Stated Complaint: fall Time Seen by Provider: 06/25/25 12:41 History of Present Illness HPI Narrative: 84-year-old white male history of chronic atrial fibrillation, benign prostatic hypertrophy, depression, dementia, currently on Eliquis, was in his usual health out on the back deck playing with his dog when he got tangled up with a dog and fell backwards striking the back of his head either on a piece of furniture or the Grout. No apparent shortness of breath, however did have an abrasion and a swollen area to the back with scalp, and when she contacted his physician he referred her in for evaluation since he is on Eliquis. He denies any current headache, neck pain, back pain, chest pain, abdominal pain, denies any difficulty breathing. Related Data Home Medications ?Medication ?Instructions ?Recorded ?Confirmed ?Last Taken ?Type finasteride 5 mg tablet 5 mg PO DAILY 11/08/21 07/01/24 Unknown History memantine 10 mg tablet 10 mg PO BID 11/08/21 07/01/24 Unknown History spironolactone 50 mg tablet 50 mg PO DAILY 11/08/21 07/01/24 Unknown History apixaban 2.5 mg tablet (Eliquis) 2.5 mg PO BID 12/12/22 07/01/24 Unknown History duloxetine 20 mg capsule,delayed 20 mg PO .pm 12/12/22 07/01/24 Unknown History release mecobalamin (vitamin B12) 1,000 1,000 mcg PO DAILY 12/12/22 07/01/24 Unknown History mcg chewable tablet omega-3 fatty acids 1,000 mg 1,000 mg PO DAILY 12/12/22 07/01/24 Unknown History capsule cholecalciferol (vitamin D3) 25 50 mcg PO DAILY 06/24/23 07/01/24 Unknown History mcg (1,000 unit) capsule latanoprost 0.005 % eye drops 1 drp EACH EYE QPM 12/25/23 07/01/24 Unknown History montelukast 10 mg tablet 10 mg PO QHS 12/25/23 07/01/24 Unknown History acetaminophen 500 mg capsule 1,000 mg PO BID 06/25/25 Unknown History brimonidine 0.2 % eye drops 1 drp EACH EYE DAILY 06/25/25 Unknown History fexofenadine 180 mg tablet 180 mg PO DAILY 06/25/25 Unknown History (Kayleen Allergy) melatonin 5 mg capsule mg PO .bedtime 06/25/25 Unknown History omega 5-vie-ozj-vitamin E 500 1 cap PO DAILY 06/25/25 Unknown History mg-139 mg-264 mg-5 unit capsule Allergies Allergy/AdvReac Type Severity Reaction Status Date / Time donepezil Allergy Hallucinati Verified 06/25/25 12:37 ng Review of Systems Review of Systems: ROS is negative except as in HPI ON LICENSE OF [facility] Past Medical History Medical History Leg swelling BPH (benign prostatic hyperplasia) Spinal stenosis Social History Social History Smoking status: Never smoker Alcohol intake: unknown Substance use: unknown Lack of Transportation: No Lack of Food: Never True Current Housing: I Have Housing Concerned About Future Housing: No Difficulty Paying Gas/Electric Bills: No Difficulty Paying for Meds: No Currently Unemployed: No Education: High School Diploma/GED Difficulty w/ Childcare or Family Care: No Living arrangements: with family Gender identity (if verbalized by the patient): Male Exam Narrative: pleasant, well-appearing, appropriately interactive, no acute distress, oriented to name, age, Hospital Has a C-collar in place, no evidence of facial trauma, there is an area of tenderness swelling on the mid superior central occipital area, with a central abrasion, somewhat of a starburst pattern, however no full-thickness laceration, no surrounding deformity, step-off, or crepitance. There is no cervical tenderness or back tenderness No shoulder, upper extremity, hip or lower extremity tenderness No chest or abdominal tenderness No other abrasions or lacerations seen Const: General: cooperative, healthy appearing, comfortable, no acute distress, well developed, alert, awake and Physically active Orientation/consciousness: patient oriented x3 (Oriented to name, age, Hospital) HENMT: Head: normal to inspection and normocephalic Ears: hearing grossly normal bilaterally and external ears normal Face/Nose/Sinus: Normal external nose present, Normal nares present, Normal nasal mucous membranes and turbinates present and normal facial exam Face and sinus: normal facial exam Mouth: Yes Normal oral and palatal mucosa present, Yes lip normal, Yes tongue normal, Yes oropharynx normal and Yes moist mucous membranes Teeth and gingiva: dentition normal Throat: posterior oropharynx normal and tonsils normal ( erythematous) Eyes: General: appearance normal, both eyes and all related structures Alignment and Position: alignment normal and position normal Periorbital: periorbital findings normal Eyelids: eyelids normal Conjunctivae: conjunctivae normal Sclera: sclerae normal Cornea: corneas normal Pupils: Equal, round and reactive pupils present EOM: EOMs intact bilaterally Neck: Neck: normal visual inspection, full ROM and no lymphadenopathy Chest: Chest palpation & inspection: normal inspection of the chest Resp: Effort & Inspection: normal respiratory effort, able to speak in complete sentences, no audible wheezes, no respiratory distress and no use of accessory muscles Auscultation: clear to auscultation bilaterally Cardio: Jugular venous distension: no JVD Rate: regular rate Rhythm: regular rhythm GI: Inspection: normal to inspection GI Palp: No abdominal tenderness, No Tenderness to palpation present (GI), No Guarding due to palpation present (GI), No No hepatosplenomegaly present, No Palpable mass present and No Rebound tenderness present Skin: General skin exam: normal color, elasticity normal and turgor normal Other: As noted above Neuro: General: No patient oriented x3 (As noted above), gait normal, tone normal and moves all extremities Cranial nerves: Yes CN's II-XII intact bilaterally, Yes Equal, round and reactive pupils present and Yes Bilaterally intact EOM present Speech: normal speech Motor exam (neuro): 5/5 motor strength present throughout and Normal motor muscle tone present throughout Sensory Exam: normal sensation Extrem: General: normal to inspection, normal exam except as noted and no pedal edema Psych: Appearance: grossly normal and well kempt Mental Status: mental status grossly normal Speech and movement: Normal speech and movement present Affect: normal affect Attitude: cooperative Thought process: Normal thought process present Course Course Emergency Course: Differential diagnosis includes but is not limited to scalp contusion, scalp abrasion, intracerebral bleed, skull fracture, neck injury Fall was mechanical and that he got tangled up with his dog, there is no weakness, fever, chills, nausea or vomiting, or other concerns or complaints He is on Eliquis, we will get a CT of the head, he is elderly will CT of the neck CT of the head shows extensive age related changes but no acute bleed or evidence of chronic bleed\ See to the neck shows degenerative disc disease, some spondylolisthesis, but no evidence of acute fracture or dislocation Of the patient and his daughter the workup results, discussed fall prevention, and close follow-up with his primary care and returning here for any head injury type precautions. Medical decision making complexity and risk moderate with review of CT of the head and CT of the neck an evaluation of a ground level fall Vital Signs Vital signs: Vital Signs Temperature 36.7 C 06/25/25 12:44 Pulse Rate 72 06/25/25 12:44 Respiratory Rate 20 06/25/25 12:44 Blood Pressure 147/76 H 06/25/25 12:44 Pulse Oximetry 100 06/25/25 12:44 Oxygen Delivery Room Air 06/25/25 12:44 Temperature 36.7 C 06/25/25 13:45 Pulse Rate 80 06/25/25 13:45 Respiratory Rate 20 06/25/25 13:45 Blood Pressure 164/62 H 06/25/25 13:45 Pulse Oximetry 100 06/25/25 13:45 Oxygen Delivery Room Air 06/25/25 13:45 MDM Differential Diagnosis Differential Diagnosis: Head injury, scalp abrasion, contusion, skull fracture, intracerebral or intracranial bleed, cervical spine injury Imaging Data Radiologist's impression: ITS Impressions Cervical Spine CT 06/25/25 13:06 IMPRESSION: HEAD: 1. No acute intracranial findings. C-SPINE: 1. No acute fracture. Head CT 06/25/25 13:06 IMPRESSION: HEAD: 1. No acute intracranial findings. C-SPINE: 1. No acute fracture. Discharge Plan Discharge Clinical Impression: Anticoagulation adequate, History of atrial fibrillation Accidental fall Qualifiers: Encounter type: initial encounter Qualified Code(s): W19.XXXA - Unspecified fall, initial encounter Head injury Qualifiers: Encounter type: initial encounter Qualified Code(s): S09.90XA - Unspecified injury of head, initial encounter Patient Disposition: Home Condition: Stable Instructions: Fall Prevention for Older Adults (ED), Head Injury (ED), Abrasion (ED) Additional Instructions: Shampoo your scalp on today, and apply thrush antibiotic ointment to the abrasion 3 times a day Take precautions to lower your risk of falling when your dog is out and about with you. It is extremely important when you are on a blood thinner to avoid falls. Use a cane or walker if needed for stability Follow-up with your primary care physician and consider physical therapy for improving strength and balance Return to the emergency department for any concern of head injury such as confusion, headache, nausea or vomiting, difficulty with coordination, loss of strength, or other concerns Patient Language: Mohawk Prescriptions: No Action brimonidine 0.2 % drops 1 drp EACH EYE DAILY melatonin 5 mg capsule PO .bedtime acetaminophen 500 mg capsule 1,000 mg PO BID fexofenadine [Kayleen Allergy] 180 mg tablet 180 mg PO DAILY omega 1-ewl-xmn-vitamin E [phone] yp-kw-ih-unit capsule 1 cap PO DAILY finasteride 5 mg Tablet 5 mg PO DAILY spironolactone 50 mg tablet 50 mg PO DAILY memantine 10 mg Tablet 10 mg PO BID mecobalamin (vitamin B12) 1,000 mcg tablet,chewable 1,000 mcg PO DAILY duloxetine 20 mg capsule,delayed release(DR/EC) 20 mg PO .pm omega-3 fatty acids 1,000 mg capsule 1,000 mg PO DAILY Eliquis 2.5 mg tablet 2.5 mg PO BID montelukast 10 mg tablet 10 mg PO QHS latanoprost 0.005 % drops 1 drp EACH EYE QPM cholecalciferol (vitamin D3) 25 mcg (1,000 unit) capsule 50 mcg PO DAILY furosemide 40 mg tablet See Rx Instructions .ROUTE .COMPLEX Qty: 270 3RF Dose Instruction: TAKE 2 TABLETS IN THE MORNING AND 1 TABLET IN THE EVENING Rx Instructions: TAKE 2 TABLETS IN THE MORNING AND 1 TABLET IN THE EVENING Follow-up/Referrals: Bryant Jain MD [Primary Care Provider, Internal Medicine]
[2025-06-25] MEDS: TETANUS,DIPHTHERIA,AC PERTUSSIS ADULT 0.5 ML (ADACEL) IM (13:50)
[2025-06-25 13:55] VITALS: BP 164/62; PULSE 80; RESP 20; TEMP 36.7; O2SAT 100
--- OUTSIDE RECORDS SUMMARY | 2025-08-17 18:00 | XMS_ITS | Clinical Summary ---
Author Organization Unknown Care Team Providers Care Pharmacy Assistant Name Role Phone STEVENSAEED LORA Unavailable Unavailable LESLIE REGISTERED NURSETONI Unavailable Unavailable Payers Payer Name Policy Type Policy Number Effective Date Expira tion Date MEDICARE [place] - EPISODIC [id number] Problems Condition Name Condition Details Condition Category [...] ALLERGIC RHINITIS, UNSPECIFIED Active 07-08 00:00: 00 HALF-WAY (CURRENT) USE OF ANTICOAGULAN TS Active 07-08 [...] 180 mg tablet 2023-07 00:00: 00 Yes [id number] ALLERGIES 1 tablet ONCE DAILY 1 tablet ONCE DAILY (route: oral) Med Classific ation: Respirato ry Therapy Agents cefdinir 300 mg capsule 2023-07 00:00: 00 07-01 23:59 :00 No [id number] CELLULITIS TO LEFT LOWER EXTREMITY 1 capsule TWICE DAILY 1 capsule TWICE DAILY (route: oral) Med Classific ation: Anti-Infe ctive Agents docusate sodium 100 mg capsule 2023-07 00:00: 00 Yes [id number] CONSTIPATIO N 2 capsule TWICE DAILY 2 capsule TWICE DAILY (route: oral) Med Classific ation: Gastroint estinal Therapy Agents doxycycline monohydrate 100 mg capsule 2023-07 00:00: 00 07-01 23:59 :00 No [id number] CELLULITIS TO LEFT LOWER LEG 1 capsule TWICE DAILY 1 capsule TWICE DAILY (route: oral) Med Classific ation: Anti-Infe ctive Agents duloxetine 20 mg capsule,del ayed release 2023-07 00:00: 00 Yes [id number] LEG PAIN 1 capsule ONCE DAILY 1 capsule ONCE DAILY (route: oral) Med Classific ation: Central Nervous System Agents Eliquis 2.5 mg tablet 2023-07 00:00: 00 Yes [id number] BLOOD CLOT PREVENTION 1 tablet TWICE DAILY 1 tablet TWICE DAILY (route: oral) Med Classific ation: Hematolog ical Agents finasteride 5 mg tablet 2023-07 00:00: 00 Yes [id number] URINARY FLOW 1 tablet ONCE DAILY 1 tablet ONCE DAILY (route: oral) Med Classific ation: Genitouri nary Therapy Fish Oil 1,000 mg (120 mg-180 mg) capsule 2023-07 00:00: 00 Yes [id number] TRIGLYCERID E LOWER AGENT 1 capsule TWICE DAILY 1 capsule TWICE DAILY (route: oral) Med Classific ation: Cardiovas cular Therapy Agents furosemide 40 mg tablet 2023-07 00:00: 00 Yes [id number] FLUID RETENTION Per instruc tions TWICE DAILY Per instructio ns TWICE DAILY (route: oral) Med Classific ation: Cardiovas cular Therapy Agents gabapentin 100 mg capsule 2023-07 00:00: 00 02-17 23:59 :00 No [id number] LEG PAIN Per instruc tions TWICE DAILY Per instructio ns TWICE DAILY (route: oral) Med Classific ation: Central Nervous System Agents I-Caps 280 mg-10 mg-2 mg capsule 2023-07 00:00: 00 Yes [id number] EYE HEALTH 1 capsule ONCE DAILY 1 capsule ONCE DAILY (route: oral) Med Classific ation: Electroly te Balance-N utritiona l Products latanoprost 0.005 % eye drops 2023-07 00:00: 00 Yes [id number] EYE PRESSURE 1 drops AT BEDTIME 1 drops AT BEDTIME (route: ophthalmic (eye)) Med Classific ation: Ophthalmi c Agents mecobalamin (vitamin B12) 1,000 mcg disintegrat ing tablet,subl ingual 2023-07 00:00: 00 Yes [id number] SUPPLEMENT 1 tablet ONCE DAILY 1 tablet ONCE DAILY (route: sublingual ) Med Classific ation: Electroly te Balance-N utritiona l Products melatonin 5 mg tablet 2023-07 00:00: 00 Yes [id number] DEMENTIA/SL EEP 1 tablet AT BEDTIME 1 tablet AT BEDTIME (route: oral) Med Classific ation: Central Nervous System Agents memantine 10 mg tablet 2023-07 00:00: 00 Yes [id number] DEMENTIA 1 tablet TWICE DAILY 1 tablet TWICE DAILY (route: oral) Med Classific ation: Cognitive Disorder Therapy montelukast 10 mg tablet 2023-07 00:00: 00 Yes [id number] ALLERGIES 1 tablet ONCE DAILY 1 tablet ONCE DAILY (route: oral) Med Classific ation: Respirato ry Therapy Agents spironolact one 50 mg tablet 2023-07 00:00: 00 Yes [id number] HYPERTENSIO N 1 tablet ONCE DAILY 1 tablet ONCE DAILY (route: oral) Med Classific ation: Cardiovas cular Therapy Agents Vitamin D3 50 mcg (2,000 unit) capsule 2023-07 00:00: 00 Yes [id number] SUPPLEMENT/ VITAMIN D DEF 1 capsule ONCE DAILY 1 capsule ONCE DAILY (route: oral) Med Classific ation: Electroly te Balance-N utritiona l Products silver sulfadiazin e 1 % topical cream 2023-07 00:00: 00 10-19 00:00 :00 No [id number] CELLULITIS WOUND TO LLE Per instruc tions ONCE DAILY Per instructio ns ONCE DAILY (route: topical) Med Classific ation: Dermatolo gical doxycycline monohydrate 100 mg capsule 08-24 00:00: 00 09-07 23:59 :00 No [id number] POSSIBLE INFECTION IN LEG WOUND 1 capsule TWICE DAILY 1 capsule TWICE DAILY (route: oral) Med Classific ation: Anti-Infe ctive Agents gabapentin 100 mg capsule 2023-07 00:00: 00 04-21 23:59 :00 No [id number] LEG PAIN Per instruc tions TWICE DAILY Per instructio ns TWICE DAILY (route: oral) Med Classific ation: Central Nervous System Agents silver sulfadiazin e 1 % topical cream 03-02 00:00: 00 Yes [id number] BLE WOUNDS 1 cm ONCE DAILY 1 cm ON CE DAILY (route: topical) Med Classific ation: Dermatolo gical gabapentin 100 mg capsule 2023-07 00:00: 00 Yes [id number] LEG PAIN Per instruc tions TWICE DAILY Per instructio ns TWICE DAILY (route: oral) Med Classific ation: Central Nervous System Agents Immunizations Ordered Immunization Name Filled Immunization Name Date Status Comments Refusal Reason INFLUENZA, TIV (INACTIVATED) 2024-04-23 00:00:00 PNEUMOCOCCAL (PPV), PPV 2015-06-08 00:00:00 Vital Signs Vital Name Observation Time Observation Value Commen ts Temperature 2025-06-21 11:38:00.000 97.2 [degF] Pulse 2025-06-21 11:38:00.000 86 /min O2 Saturation (%) 2025-06-21 11:38:00.000 97 % Respirations 2025-06-21 11:38:00.000 18 /min Systolic Blood Pressure 2025-06-21 11:38:00.000 118 mm [Hg] Diastolic Blood Pressure 2025-06-21 11:38:00.000 70 mm [Hg] Plan of Treatment Planned Activity [...] THROUGHOUT THE WEEK.] Future Scheduled Test [facility], ASSOCIATED PHYSICIAN, NPP OR PA WITHIN [...] CONSULTING ON THE CERTIFIED CARE PLAN: DR. HARRIS [code = EACH ORDERED IN-HOME OR TELEHEALTH [...] CONSULTING ON THE CERTIFIED CARE PLAN: DR. HARRIS] Future Scheduled Test HOME HEALT H NURSE [...] NURSE WILL ASSESS FOR COMPLICATIONS RELATED TO ANTICOAGULATIONUSE AND INSTRUCT PATIENT/CAREGIVER ABOUT PRECAUTIONS TO FOLLOW AND SIGNS/SYMPTOMS TO REPORT. [code = HOME HEALTH NURSE WILL ASSESS FOR COMPLICATIONS RELATED TO ANTICOAGULATIONUSE AND INSTRUCT PATIENT/CAREGIVER ABOUT PRECAUTIONS TO FOLLOW AND SIGNS/SYMPTOMS TO REPORT.] Future Scheduled Test SKILLED NU RSE TO INSTRUCT ON URINARY INCONTINENCE INCLUDING CAUSES AND MANAGEMENT STRATEGIES. [code = SKILLED NURSE TO INSTRUCT ON URINARY INCONTINENCE INCLUDING CAUSES AND MANAGEMENT STRATEGIES.] Future Scheduled Test HOME HEALT H NURSE WILL INSTRUCT THE PATIENT/CAREGIVER ABOUT DEMENTIA INCLUDING CHARACTERISTICS OF DISEASE PROCESS, POSSIBLE COMPLICATIONS, AND SAFETY MEASURES ASSOCIATED WITH ALTERED MENTAL STATUS. [code = HOME HEALTH NURSE WILL INSTRUCT THE PATIENT/CAREGIVER ABOUT DEMENTIA INCLUDING CHARACTERISTICS OF DISEASE PROCESS, POSSIBLE COMPLICATIONS, AND SAFETY MEASURES ASSOCIATED WITH ALTERED MENTAL STATUS.] Goal 2024-08-21 Patient Goal - S OC [...] RECERT 04/20/25: TO HEAL WOUNDS TO LEGS RECERT 06/16/2025 TO HEAL WOUND Goal 2025-06-16 Patient Goal - S OC 06/25/24: TO [...] UPDATES Goal Provider Goal - PATIENT/CAREGIVER WILL VERBALIZE/DEMONSTRATE ABILITY TO SELF-MANAGE VENOUS STASIS ULCERS IN THE HOME SETTING EVIDENCED BY: VERBALIZATION OF SIGNS AND SYMPTOMS TO REPORT, ABILITY TO PERFORM WOUND CARE, VERBALIZATION/DEMONSTRATION OF WAYS TO PROMOTE VENOUS RETURN, LIFESTYLE MODIFICATIONS, UNDERSTANDING OF DEFINITION/PATHOPHYSIOLOGY/RELATED COMPLICATIONS OF DISEASE PROCESS BY DISCHARGE. Goal Provider Goal - PATIENT/CAREGIVER WILL INDEPENDENTLY DEMONSTRATE HOW TO CHECK HIS/HER OWN BP AND VERBALIZE WHAT STRATEGIES CAN ASSIST TO CONTROL BLOOD PRESSURE. Goal Provider Goal - A PLAN OF CARE WILL BE ESTABLISHED THAT MEETS ALL PATIENT'S USP NEEDS AND COUNTER SIGNED BY PHYSICIAN. Goal Provider Goal - PATIENT WILL BE FREE OF FALLS AND HOSPITALIZATIONS THROUGHOUT EPISODE OF CARE. PATIENT/CAREGIVER WILL UNDERSTAND AND ADHERE TO ORDERED DIET. PATIENT/CAREGIVER WILL INDEPENDENTLY MANAGE MEDICATIONS, UNDERSTAND ANY CHANGES, SIDE EFFECTS TO REPORT BY DISCHARGE. PATIENT WILL BE FREE OF INFECTION AND [...] Goal - PATIENT/CAREGIVER WILL VERBALIZE UNDERSTANDING OF ANTICOAGULATION COMPLICATIONS TO REPORT AND PRECAUTIONS TO FOLLOW BY END OF HOME HEALTH SERVICES. Goal Provider Goal - PATIENT/CAREGIVER WILL INDEPENDENTLY DEMONSTRATE STRATEGIES TO MANAGE INCONTINENCE AND PROBLEMS THAT CAN DEVELOP FROM BEING INCONTINENT. Goal Provider Goal - PATIENT/CAREGIVER WILL DEMONSTRATE REDUCED SUBJECTIVE LEVELS OF STRESS AND DEMONSTRATE INCREASED SAFETY IN THE HOME WITH MAXIMAL FUNCTIONAL TASK ENGAGEMENT BY END OF EPISODE. Encounters Start Date/Time End Date/Time Encounter Type Admission Type Attending [facility] Care [facility] Care Department Encounter ID Discharge Date Discharge Status Discharge Condition Discharge Reason Percent Goals Met 2025-06-20 00:00:00 2025-08-18 00:00:00 Outpatient RECERTIFIC ATION TONI NELSON [facility] [id number] 0.00
--- OUTSIDE RECORDS SUMMARY | 2025-08-17 18:00 | XMS_ITS | Clinical Summary ---
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 Name Role Phone STEVENSAEED LORA Unavailable Unavailable LESLIE REGISTERED NURSETONI Unavailable Unavailable Payers Payer Name Policy Type Policy Number Effective Date Expira tion Date MEDICARE [place] - EPISODIC [id number] Problems Condition Name Condition Details Condition Category [...] ALLERGIC RHINITIS, UNSPECIFIED Active 07-08 00:00: 00 SKILLED NURSING (CURRENT) USE OF ANTICOAGULAN TS Active 07-08 [...] 180 mg tablet 2023-07 00:00: 00 Yes [id number] ALLERGIES 1 tablet ONCE DAILY 1 tablet ONCE DAILY (route: oral) Med Classific ation: Respirato ry Therapy Agents cefdinir 300 mg capsule 2023-07 00:00: 00 07-01 23:59 :00 No [id number] CELLULITIS TO LEFT LOWER EXTREMITY 1 capsule TWICE DAILY 1 capsule TWICE DAILY (route: oral) Med Classific ation: Anti-Infe ctive Agents docusate sodium 100 mg capsule 2023-07 00:00: 00 Yes [id number] CONSTIPATIO N 2 capsule TWICE DAILY 2 capsule TWICE DAILY (route: oral) Med Classific ation: Gastroint estinal Therapy Agents doxycycline monohydrate 100 mg capsule 2023-07 00:00: 00 07-01 23:59 :00 No [id number] CELLULITIS TO LEFT LOWER LEG 1 capsule TWICE DAILY 1 capsule TWICE DAILY (route: oral) Med Classific ation: Anti-Infe ctive Agents duloxetine 20 mg capsule,del ayed release 2023-07 00:00: 00 Yes [id number] LEG PAIN 1 capsule ONCE DAILY 1 capsule ONCE DAILY (route: oral) Med Classific ation: Central Nervous System Agents Eliquis 2.5 mg tablet 2023-07 00:00: 00 Yes [id number] BLOOD CLOT PREVENTION 1 tablet TWICE DAILY 1 tablet TWICE DAILY (route: oral) Med Classific ation: Hematolog ical Agents finasteride 5 mg tablet 2023-07 00:00: 00 Yes [id number] URINARY FLOW 1 tablet ONCE DAILY 1 tablet ONCE DAILY (route: oral) Med Classific ation: Genitouri nary Therapy Fish Oil 1,000 mg (120 mg-180 mg) capsule 2023-07 00:00: 00 Yes [id number] TRIGLYCERID E LOWER AGENT 1 capsule TWICE DAILY 1 capsule TWICE DAILY (route: oral) Med Classific ation: Cardiovas cular Therapy Agents furosemide 40 mg tablet 2023-07 00:00: 00 Yes [id number] FLUID RETENTION Per instruc tions TWICE DAILY Per instructio ns TWICE DAILY (route: oral) Med Classific ation: Cardiovas cular Therapy Agents gabapentin 100 mg capsule 2023-07 00:00: 00 02-17 23:59 :00 No [id number] LEG PAIN Per instruc tions TWICE DAILY Per instructio ns TWICE DAILY (route: oral) Med Classific ation: Central Nervous System Agents I-Caps 280 mg-10 mg-2 mg capsule 2023-07 00:00: 00 Yes [id number] EYE HEALTH 1 capsule ONCE DAILY 1 capsule ONCE DAILY (route: oral) Med Classific ation: Electroly te Balance-N utritiona l Products latanoprost 0.005 % eye drops 2023-07 00:00: 00 Yes [id number] EYE PRESSURE 1 drops AT BEDTIME 1 drops AT BEDTIME (route: ophthalmic (eye)) Med Classific ation: Ophthalmi c Agents mecobalamin (vitamin B12) 1,000 mcg disintegrat ing tablet,subl ingual 2023-07 00:00: 00 Yes [id number] SUPPLEMENT 1 tablet ONCE DAILY 1 tablet ONCE DAILY (route: sublingual ) Med Classific ation: Electroly te Balance-N utritiona l Products melatonin 5 mg tablet 2023-07 00:00: 00 Yes [id number] DEMENTIA/SL EEP 1 tablet AT BEDTIME 1 tablet AT BEDTIME (route: oral) Med Classific ation: Central Nervous System Agents memantine 10 mg tablet 2023-07 00:00: 00 Yes [id number] DEMENTIA 1 tablet TWICE DAILY 1 tablet TWICE DAILY (route: oral) Med Classific ation: Cognitive Disorder Therapy montelukast 10 mg tablet 2023-07 00:00: 00 Yes [id number] ALLERGIES 1 tablet ONCE DAILY 1 tablet ONCE DAILY (route: oral) Med Classific ation: Respirato ry Therapy Agents spironolact one 50 mg tablet 2023-07 00:00: 00 Yes [id number] HYPERTENSIO N 1 tablet ONCE DAILY 1 tablet ONCE DAILY (route: oral) Med Classific ation: Cardiovas cular Therapy Agents Vitamin D3 50 mcg (2,000 unit) capsule 2023-07 00:00: 00 Yes [id number] SUPPLEMENT/ VITAMIN D DEF 1 capsule ONCE DAILY 1 capsule ONCE DAILY (route: oral) Med Classific ation: Electroly te Balance-N utritiona l Products silver sulfadiazin e 1 % topical cream 2023-07 00:00: 00 10-19 00:00 :00 No [id number] CELLULITIS WOUND TO LLE Per instruc tions ONCE DAILY Per instructio ns ONCE DAILY (route: topical) Med Classific ation: Dermatolo gical doxycycline monohydrate 100 mg capsule 08-24 00:00: 00 09-07 23:59 :00 No [id number] POSSIBLE INFECTION IN LEG WOUND 1 capsule TWICE DAILY 1 capsule TWICE DAILY (route: oral) Med Classific ation: Anti-Infe ctive Agents gabapentin 100 mg capsule 2023-07 00:00: 00 04-21 23:59 :00 No [id number] LEG PAIN Per instruc tions TWICE DAILY Per instructio ns TWICE DAILY (route: oral) Med Classific ation: Central Nervous System Agents silver sulfadiazin e 1 % topical cream 03-02 00:00: 00 Yes [id number] BLE WOUNDS 1 cm ONCE DAILY 1 cm ON CE DAILY (route: topical) Med Classific ation: Dermatolo gical gabapentin 100 mg capsule 2023-07 00:00: 00 Yes [id number] LEG PAIN Per instruc tions TWICE DAILY [...] THROUGHOUT THE WEEK.] Future Scheduled Test [facility], ASSOCIATED PHYSICIAN, NPP OR PA WITHIN [...] MEASURES ASSOCIATED WITH ALTERED MENTAL STATUS.] Goal 2025-02-16 Patient Goal - S OC 06/25/24: TO HEAL MY WOUND RECERT 08/21/23: TO HEAL WOUND RECERT 10/19/24: TO STAY IN MY OWN HOME RECERT 12/21/24: TO KEEP MY LEGS HEALED Goal 2024-10-19 Patient Goal - S OC [...] LEGS HEALED RECERT 02/16/25: NO UPDATES Goal 2024-08-21 Patient Goal - S OC 06/25/24: TO HEAL MY WOUND Goal 2024-12-21 Patient Goal - S OC 06/25/24: TO HEAL MY WOUND RECERT 08/21/23: TO HEAL WOUND RECERT 10/19/24: TO STAY IN MY OWN HOME Goal Provider Goal - PATIENT/CAREGIVER WILL VERBALIZE/DEMONSTRATE [...] WILL BE ESTABLISHED THAT MEETS ALL PATIENT'S CUSTODIAL NEEDS AND COUNTER SIGNED BY PHYSICIAN. Goal [...] End Date/Time Encounter Type Admission Type Attending [facility] Care [facility] Care Department Encounter ID Discharge Date Discharge Status Discharge Condition Discharge Reason Percent Goals Met 2025-06-20 00:00:00 2025-08-18 00:00:00 Outpatient RECERTIFIC ATION TONI NELSON [facility] [id number] 0.00
--- OUTSIDE RECORDS SUMMARY | 2025-08-17 18:00 | XMS_ITS | Clinical Summary ---
Author Organization Unknown Care Team Providers Care Bankruptcy Judge Name Role Phone STEVENSAEED LORA Unavailable Unavailable LESLIE REGISTERED NURSETONI Unavailable Unavailable Payers Payer Name Policy Type Policy Number Effective Date Expira tion Date MEDICARE [place] - EPISODIC [id number] Problems Condition Name Condition Details Condition Category [...] ALLERGIC RHINITIS, UNSPECIFIED Active 07-08 00:00: 00 JAIL (CURRENT) USE OF ANTICOAGULAN TS Active 07-08 [...] 180 mg tablet 2023-07 00:00: 00 Yes [id number] ALLERGIES 1 tablet ONCE DAILY 1 tablet ONCE DAILY (route: oral) Med Classific ation: Respirato ry Therapy Agents cefdinir 300 mg capsule 2023-07 00:00: 00 07-01 23:59 :00 No [id number] CELLULITIS TO LEFT LOWER EXTREMITY 1 capsule TWICE DAILY 1 capsule TWICE DAILY (route: oral) Med Classific ation: Anti-Infe ctive Agents docusate sodium 100 mg capsule 2023-07 00:00: 00 Yes [id number] CONSTIPATIO N 2 capsule TWICE DAILY 2 capsule TWICE DAILY (route: oral) Med Classific ation: Gastroint estinal Therapy Agents doxycycline monohydrate 100 mg capsule 2023-07 00:00: 00 07-01 23:59 :00 No [id number] CELLULITIS TO LEFT LOWER LEG 1 capsule TWICE DAILY 1 capsule TWICE DAILY (route: oral) Med Classific ation: Anti-Infe ctive Agents duloxetine 20 mg capsule,del ayed release 2023-07 00:00: 00 Yes [id number] LEG PAIN 1 capsule ONCE DAILY 1 capsule ONCE DAILY (route: oral) Med Classific ation: Central Nervous System Agents Eliquis 2.5 mg tablet 2023-07 00:00: 00 Yes [id number] BLOOD CLOT PREVENTION 1 tablet TWICE DAILY 1 tablet TWICE DAILY (route: oral) Med Classific ation: Hematolog ical Agents finasteride 5 mg tablet 2023-07 00:00: 00 Yes [id number] URINARY FLOW 1 tablet ONCE DAILY 1 tablet ONCE DAILY (route: oral) Med Classific ation: Genitouri nary Therapy Fish Oil 1,000 mg (120 mg-180 mg) capsule 2023-07 00:00: 00 Yes [id number] TRIGLYCERID E LOWER AGENT 1 capsule TWICE DAILY 1 capsule TWICE DAILY (route: oral) Med Classific ation: Cardiovas cular Therapy Agents furosemide 40 mg tablet 2023-07 00:00: 00 Yes [id number] FLUID RETENTION Per instruc tions TWICE DAILY Per instructio ns TWICE DAILY (route: oral) Med Classific ation: Cardiovas cular Therapy Agents gabapentin 100 mg capsule 2023-07 00:00: 00 02-17 23:59 :00 No [id number] LEG PAIN Per instruc tions TWICE DAILY Per instructio ns TWICE DAILY (route: oral) Med Classific ation: Central Nervous System Agents I-Caps 280 mg-10 mg-2 mg capsule 2023-07 00:00: 00 Yes [id number] EYE HEALTH 1 capsule ONCE DAILY 1 capsule ONCE DAILY (route: oral) Med Classific ation: Electroly te Balance-N utritiona l Products latanoprost 0.005 % eye drops 2023-07 00:00: 00 Yes [id number] EYE PRESSURE 1 drops AT BEDTIME 1 drops AT BEDTIME (route: ophthalmic (eye)) Med Classific ation: Ophthalmi c Agents mecobalamin (vitamin B12) 1,000 mcg disintegrat ing tablet,subl ingual 2023-07 00:00: 00 Yes [id number] SUPPLEMENT 1 tablet ONCE DAILY 1 tablet ONCE DAILY (route: sublingual ) Med Classific ation: Electroly te Balance-N utritiona l Products melatonin 5 mg tablet 2023-07 00:00: 00 Yes [id number] DEMENTIA/SL EEP 1 tablet AT BEDTIME 1 tablet AT BEDTIME (route: oral) Med Classific ation: Central Nervous System Agents memantine 10 mg tablet 2023-07 00:00: 00 Yes [id number] DEMENTIA 1 tablet TWICE DAILY 1 tablet TWICE DAILY (route: oral) Med Classific ation: Cognitive Disorder Therapy montelukast 10 mg tablet 2023-07 00:00: 00 Yes [id number] ALLERGIES 1 tablet ONCE DAILY 1 tablet ONCE DAILY (route: oral) Med Classific ation: Respirato ry Therapy Agents spironolact one 50 mg tablet 2023-07 00:00: 00 Yes [id number] HYPERTENSIO N 1 tablet ONCE DAILY 1 tablet ONCE DAILY (route: oral) Med Classific ation: Cardiovas cular Therapy Agents Vitamin D3 50 mcg (2,000 unit) capsule 2023-07 00:00: 00 Yes [id number] SUPPLEMENT/ VITAMIN D DEF 1 capsule ONCE DAILY 1 capsule ONCE DAILY (route: oral) Med Classific ation: Electroly te Balance-N utritiona l Products silver sulfadiazin e 1 % topical cream 2023-07 00:00: 00 10-19 00:00 :00 No [id number] CELLULITIS WOUND TO LLE Per instruc tions ONCE DAILY Per instructio ns ONCE DAILY (route: topical) Med Classific ation: Dermatolo gical doxycycline monohydrate 100 mg capsule 08-24 00:00: 00 09-07 23:59 :00 No [id number] POSSIBLE INFECTION IN LEG WOUND 1 capsule TWICE DAILY 1 capsule TWICE DAILY (route: oral) Med Classific ation: Anti-Infe ctive Agents gabapentin 100 mg capsule 2023-07 00:00: 00 04-21 23:59 :00 No [id number] LEG PAIN Per instruc tions TWICE DAILY Per instructio ns TWICE DAILY (route: oral) Med Classific ation: Central Nervous System Agents silver sulfadiazin e 1 % topical cream 03-02 00:00: 00 Yes [id number] BLE WOUNDS 1 cm ONCE DAILY 1 cm ON CE DAILY (route: topical) Med Classific ation: Dermatolo gical gabapentin 100 mg capsule 2023-07 00:00: 00 Yes [id number] LEG PAIN Per instruc tions TWICE DAILY [...] THROUGHOUT THE WEEK.] Future Scheduled Test [facility], [facility]ATED PHYSICIAN, NPP OR PA WITHIN [...] WILL BE ESTABLISHED THAT MEETS ALL PATIENT'S PENITENTIARY NEEDS AND COUNTER SIGNED BY PHYSICIAN. Goal [...] End Date/Time Encounter Type Admission Type Attending [facility] Care [place] Care Department Encounter ID Discharge Date Discharge Status Discharge Condition Discharge Reason Percent Goals Met 2025-06-20 00:00:00 2025-08-18 00:00:00 Outpatient RECERTIFIC ATION TONI NELSON [facility] [id number] 0.00
--- OUTSIDE RECORDS SUMMARY | 2025-08-17 18:00 | XMS_ITS | Clinical Summary ---
Author Organization Unknown Care Team Providers Care Clothing Worker Name Role Phone STEVENSAEED LORA Unavailable Unavailable LESLIE REGISTERED NURSETONI Unavailable Unavailable Payers Payer Name Policy Type Policy Number Effective Date Expira tion Date MEDICARE [place] - EPISODIC [id number] Problems Condition Name Condition Details Condition Category [...] ALLERGIC RHINITIS, UNSPECIFIED Active 07-08 00:00: 00 INTERMEDIATE (CURRENT) USE OF ANTICOAGULAN TS Active 07-08 [...] 180 mg tablet 2023-07 00:00: 00 Yes [id number] ALLERGIES 1 tablet ONCE DAILY 1 tablet ONCE DAILY (route: oral) Med Classific ation: Respirato ry Therapy Agents cefdinir 300 mg capsule 2023-07 00:00: 00 07-01 23:59 :00 No [id number] CELLULITIS TO LEFT LOWER EXTREMITY 1 capsule TWICE DAILY 1 capsule TWICE DAILY (route: oral) Med Classific ation: Anti-Infe ctive Agents docusate sodium 100 mg capsule 2023-07 00:00: 00 Yes [id number] CONSTIPATIO N 2 capsule TWICE DAILY 2 capsule TWICE DAILY (route: oral) Med Classific ation: Gastroint estinal Therapy Agents doxycycline monohydrate 100 mg capsule 2023-07 00:00: 00 07-01 23:59 :00 No [id number] CELLULITIS TO LEFT LOWER LEG 1 capsule TWICE DAILY 1 capsule TWICE DAILY (route: oral) Med Classific ation: Anti-Infe ctive Agents duloxetine 20 mg capsule,del ayed release 2023-07 00:00: 00 Yes [id number] LEG PAIN 1 capsule ONCE DAILY 1 capsule ONCE DAILY (route: oral) Med Classific ation: Central Nervous System Agents Eliquis 2.5 mg tablet 2023-07 00:00: 00 Yes [id number] BLOOD CLOT PREVENTION 1 tablet TWICE DAILY 1 tablet TWICE DAILY (route: oral) Med Classific ation: Hematolog ical Agents finasteride 5 mg tablet 2023-07 00:00: 00 Yes [id number] URINARY FLOW 1 tablet ONCE DAILY 1 tablet ONCE DAILY (route: oral) Med Classific ation: Genitouri nary Therapy Fish Oil 1,000 mg (120 mg-180 mg) capsule 2023-07 00:00: 00 Yes [id number] TRIGLYCERID E LOWER AGENT 1 capsule TWICE DAILY 1 capsule TWICE DAILY (route: oral) Med Classific ation: Cardiovas cular Therapy Agents furosemide 40 mg tablet 2023-07 00:00: 00 Yes [id number] FLUID RETENTION Per instruc tions TWICE DAILY Per instructio ns TWICE DAILY (route: oral) Med Classific ation: Cardiovas cular Therapy Agents gabapentin 100 mg capsule 2023-07 00:00: 00 02-17 23:59 :00 No [id number] LEG PAIN Per instruc tions TWICE DAILY Per instructio ns TWICE DAILY (route: oral) Med Classific ation: Central Nervous System Agents I-Caps 280 mg-10 mg-2 mg capsule 2023-07 00:00: 00 Yes [id number] EYE HEALTH 1 capsule ONCE DAILY 1 capsule ONCE DAILY (route: oral) Med Classific ation: Electroly te Balance-N utritiona l Products latanoprost 0.005 % eye drops 2023-07 00:00: 00 Yes [id number] EYE PRESSURE 1 drops AT BEDTIME 1 drops AT BEDTIME (route: ophthalmic (eye)) Med Classific ation: Ophthalmi c Agents mecobalamin (vitamin B12) 1,000 mcg disintegrat ing tablet,subl ingual 2023-07 00:00: 00 Yes [id number] SUPPLEMENT 1 tablet ONCE DAILY 1 tablet ONCE DAILY (route: sublingual ) Med Classific ation: Electroly te Balance-N utritiona l Products melatonin 5 mg tablet 2023-07 00:00: 00 Yes [id number] DEMENTIA/SL EEP 1 tablet AT BEDTIME 1 tablet AT BEDTIME (route: oral) Med Classific ation: Central Nervous System Agents memantine 10 mg tablet 2023-07 00:00: 00 Yes [id number] DEMENTIA 1 tablet TWICE DAILY 1 tablet TWICE DAILY (route: oral) Med Classific ation: Cognitive Disorder Therapy montelukast 10 mg tablet 2023-07 00:00: 00 Yes [id number] ALLERGIES 1 tablet ONCE DAILY 1 tablet ONCE DAILY (route: oral) Med Classific ation: Respirato ry Therapy Agents spironolact one 50 mg tablet 2023-07 00:00: 00 Yes [id number] HYPERTENSIO N 1 tablet ONCE DAILY 1 tablet ONCE DAILY (route: oral) Med Classific ation: Cardiovas cular Therapy Agents Vitamin D3 50 mcg (2,000 unit) capsule 2023-07 00:00: 00 Yes [id number] SUPPLEMENT/ VITAMIN D DEF 1 capsule ONCE DAILY 1 capsule ONCE DAILY (route: oral) Med Classific ation: Electroly te Balance-N utritiona l Products silver sulfadiazin e 1 % topical cream 2023-07 00:00: 00 10-19 00:00 :00 No [id number] CELLULITIS WOUND TO LLE Per instruc tions ONCE DAILY Per instructio ns ONCE DAILY (route: topical) Med Classific ation: Dermatolo gical doxycycline monohydrate 100 mg capsule 08-24 00:00: 00 09-07 23:59 :00 No [id number] POSSIBLE INFECTION IN LEG WOUND 1 capsule TWICE DAILY 1 capsule TWICE DAILY (route: oral) Med Classific ation: Anti-Infe ctive Agents gabapentin 100 mg capsule 2023-07 00:00: 00 04-21 23:59 :00 No [id number] LEG PAIN Per instruc tions TWICE DAILY Per instructio ns TWICE DAILY (route: oral) Med Classific ation: Central Nervous System Agents silver sulfadiazin e 1 % topical cream 03-02 00:00: 00 Yes [id number] BLE WOUNDS 1 cm ONCE DAILY 1 cm ON CE DAILY (route: topical) Med Classific ation: Dermatolo gical gabapentin 100 mg capsule 2023-07 00:00: 00 Yes [id number] LEG PAIN Per instruc tions TWICE DAILY [...] Future Scheduled Test [facility], [facility]OCIATED PHYSICIAN, NPP OR PA WITHIN [...] End Date/Time Encounter Type Admission Type Attending [facility] Care [facility] Care Department Encounter ID Discharge Date Discharge Status Discharge Condition Discharge Reason Percent Goals Met 2025-06-20 00:00:00 2025-08-18 00:00:00 Outpatient RECERTIFIC ATION TONI NELSON [facility] [id number] 0.00
== END 2025-06-25 13:55 | disposition home or self-care (01) ==
PROVIDERS: Emergency Provider Emergency Medicine; PCP Internal Medicine
DX: S00.01XA Abrasion of scalp, initial encounter (principal); Z79.01 Long term (current) use of anticoagulants; Z79.899 Other long term (current) drug therapy; Z23 Encounter for immunization; I48.91 Unspecified atrial fibrillation; W18.39XA Other fall on same level, initial encounter
CPT/HCPCS: 70450; 72125; 90471; 90715; 99284